=== PATIENT | female | born 1940 | race Caucasian/White ===

== ENCOUNTER → 2017-07-18 14:20 | Outpatient (CLI) | payer MEDICARE, OTHER, SELFPAY ==
--- NOTE | 2017-07-18 14:30 | XR_ITS ---
XR foot RT min 3V HISTORY: ITS.REASON: PAIN IN RT GREAT TOE ORDERING PHYSICIAN: Rahat Murcia MD PATIENT AGE: 76 years COMPARISON: None FINDINGS: There is mild hallux valgus with first metatarsophalangeal angle of 30 degrees. Mild osteoarthritic changes are present at the first metatarsophalangeal joint with hypertrophic changes of the distal first metatarsal. No fracture or dislocation. No lytic or blastic change. There is normal mineralization.. IMPRESSION: Hallux valgus with bunion formation and osteoarthritis of the first MTP joint
--- NOTE | 2017-07-18 14:30 | XR_ITS ---
EXAM: XR cervical spine 5V HISTORY: Neck pain ITS.REASON: CERVICAL ARTHRITIS ORDERING PHYSICIAN: Rahat Murcia MD PATIENT AGE: 76 years COMPARISON: None FINDINGS: Normal alignment. Degenerative disc disease is present at C4-C5 C5-C6 and C6-C7. There are small posterior osteophytes at C5-C6 and C6-C7. Moderate foraminal narrowing is present on the right at C5-C6 and on the left at C6-C7. No fracture or dislocation. The head is slightly tilted toward the right. Incidental note is made of carotid artery calcifications. IMPRESSION: Cervical spondylosis with degenerative disc disease and foraminal narrowing as described above
== END ==
PROVIDERS: PCP Family Medicine; Visit Provider Family Medicine
DX: M79.674 Pain in right toe(s) (principal); M46.92 Unspecified inflammatory spondylopathy, cervical region
CPT/HCPCS: 72050; 73630

== ENCOUNTER → 2017-08-22 06:51 | Outpatient (CLI) | payer MEDICARE, SELFPAY ==
--- NOTE | 2017-08-22 06:59 | NM_ITS ---
History and Indications: Hypertension, family history, chest pain, shortness of breath, palpitations and fatigue Procedure: Patient received a 0.4 mg of Lexiscan, resting heart rate was 64 beats prominent, resting blood pressure 161/79, with Lexiscan maximum heart rate achieved was 98 bpm which is less than 85% of the maximum predicted heart rate and a blood pressure was 145/81. With Lexiscan patient complained of shortness of breath. Electrocardiogram: Resting electrocardiogram showed sinus rhythm, with Lexiscan there is less than 1.[address] segment depression noted from the baseline EKG. The EKG portion of the Lexiscan Myoview is nondiagnostic. Cardiac stress and resting SPECT images: Cardiac stress and rest SPECT images were obtained using technetium 99 Myoview 10.1 mCi at rest and 31.8 mCi at stress, gated SPECT further analysis of segmental wall motion and calculation of the ejection fraction also done. Cardiac stress and rest images show mild decreased tracer activity in the anterior wall with normal contractility in the gated SPECT is likely secondary to soft tissue attenuation from the breast, no reversible ischemia seen, computer derived ejection fraction is over C5 percent with no obvious regional wall motion abnormality, right ventricle is normal size and contractility. Conclusion: 1. The EKG portion of the Lexiscan Myoview is nondiagnostic. 2. No obvious scintigraphic evidence of reversible ischemia seen, computer ejection fraction is over 65% with no obvious regional wall motion abnormality, right ventricle is normal size and contractility.
--- NOTE | 2017-08-22 09:10 | HMH.ITSHM ---
diltiazem warfarin hydrochlorothiazide
== END ==
PROVIDERS: Family Provider Family Medicine; PCP Family Medicine; Visit Provider Family Medicine
DX: I20.8 Other forms of angina pectoris (principal)
CPT/HCPCS: 78452; 93017; A9502; J2785

== ENCOUNTER → 2017-11-25 13:08 | Outpatient (CLI) | payer MEDICARE, SELFPAY ==
--- NOTE | 2017-11-25 13:14 | NVE_ITS ---
Venous Exam Indications: 729.5 Pain in limb. IMPRESSIONS 1. There is no evidence of significant Reflux. 2. No evidence of deep or superficial vein thrombosis involving the left lower extremity Left lower extremity venous duplex evaluation. Doppler flow study including spectral analysis, color and jones scale imaging. Location: Vascular laboratory. Patient status: Outpatient. CRITICAL FINDINGS - Reported to: Mikaela Hong back and verified. - 11/25/17 - 1335 - +bakers cyst Incidental findings: A Moss's cyst is noted incidentally on the left. Tables: Venous flow and imaging: + +-------+ + Location Overall Flow properties + +-------+ + Left common femoral Patent Normal phasicity; spontaneous; normal augmentation; compressible + +-------+ + Left saphenofemoral junction Patent Compressible + +-------+ + Left profunda femoral Patent Compressible + +-------+ + Left femoral Patent Normal phasicity; spontaneous; normal augmentation; compressible + +-------+ + Left greater saphenous Patent Normal phasicity; spontaneous; normal augmentation; compressible + +-------+ + Left popliteal Patent Normal phasicity; spontaneous; normal augmentation; compressible + +-------+ + Left posterior tibial Patent Compressible + +-------+ + Left peroneal Patent Compressible + +-------+ + Left gastrocnemius Patent Compressible + +-------+ + Left soleal Patent Compressible + +-------+ + (Report amended ) Electronically signed by: Hugh Larios [id number]
== END ==
PROVIDERS: Family Provider Family Medicine; PCP Family Medicine; Visit Provider Nurse Practitioner
DX: M79.605 Pain in left leg (principal); M79.89 Other specified soft tissue disorders; Z86.718 Personal history of other venous thrombosis and embolism
CPT/HCPCS: 93971

== ENCOUNTER → 2018-04-14 14:46 | Outpatient (CLI) | payer MEDICARE, SELFPAY ==
--- NOTE | 2018-04-14 14:49 | XR_ITS ---
XR foot wt bearing LT 3V HISTORY: Left foot pain ITS.REASON: bunion pain ORDERING PHYSICIAN: Jennifer Jacobson DPM PATIENT AGE: 77 years COMPARISON: None FINDINGS: Moderate to severe osteoarthritic changes are present at the first metatarsophalangeal joint. No fracture or dislocation. There is a small calcaneal spur at 9 mm. There is minimal hallux valgus. There is mild flexion deformity of the second digit IMPRESSION: Osteoarthritis of the first metatarsophalangeal joint with mild hallux valgus
--- NOTE | 2018-04-14 14:49 | XR_ITS ---
XR foot wt bearing RT 3V HISTORY: Foot pain ITS.REASON: bunion pain ORDERING PHYSICIAN: Jennifer Jacobson DPM PATIENT AGE: 77 years COMPARISON: None FINDINGS: Mild hallux valgus with first metatarsophalangeal angle of 30 degrees with osteoarthritis of the first metatarsophalangeal joint and hypertrophic changes of the distal aspect of the first metatarsal with some cortical irregularity of the mucosal surface of the distal aspect of the first metatarsal and mild soft tissue swelling. No fracture or dislocation. No lytic or blastic change IMPRESSION: Phalanx valgus with osteoarthritis of the first metatarsophalangeal joint and bunion formation
== END ==
PROVIDERS: PCP Family Medicine; Visit Provider Podiatrist
DX: M79.672 Pain in left foot (principal); M79.671 Pain in right foot
CPT/HCPCS: 73630

== ENCOUNTER → 2018-09-26 13:03 | Outpatient (CLI) | payer MEDICARE, SELFPAY ==
--- NOTE | 2018-09-26 13:06 | US_ITS ---
US extremity RT limited CLINICAL INDICATION: 1 body evaluation ITS.REASON: Foreign Body ORDERING PHYSICIAN: Jennifer Jacobson DPM PATIENT AGE: 77 years Comparison: None FINDINGS: Ultrasound obtained of the first toe in the area of concern there is some heterogeneous echogenicity in the subcutaneous region over the first toe with a small linear area of increased echogenicity at this region which could be due to a foreign body IMPRESSION: Possible foreign body of the first toe at area of concern
== END ==
PROVIDERS: PCP Family Medicine; Visit Provider Podiatrist
DX: M79.5 Residual foreign body in soft tissue (principal)
CPT/HCPCS: 76882

== ENCOUNTER → 2018-10-01 14:03 | Outpatient (CLI) | payer MEDICARE, SELFPAY ==
--- NOTE | 2018-10-01 14:23 | XR_ITS ---
XR chest 2V HISTORY: Atrial fibrillation ITS.REASON: SEASONAL ALLERGIES ORDERING PHYSICIAN: Jennifer Jacobson DPM PATIENT AGE: 77 years COMPARISON: None FINDINGS: Unremarkable cardiovascular structures. Patchy density overlies the left ventricle and may be due to fat pad. Parenchymal opacity is noted in the left midlung overlying the posterior aspect of the left eighth rib and may in part be due to a rib lesion versus an overlying lung lesion. Chest CT may be of further value. There are mild degenerative changes in the thoracic spine. IMPRESSION: Nonspecific parenchymal opacity in the left midlung with nodularity medially which could be due to a rib lesion or pulmonary lesion. Chest CT may be of further value. Otherwise negative
[2018-10-01 15:07] LABS: Basophils # 0.1 K/mm3 (0-0.2); Basophils % 0.7 % (0.1-2.0); Eosinophils # 0.1 K/mm3 (0.0-0.4); Eosinophils % 1.3 % (0.1-12.0); Hematocrit 38.1 % (37.0-47.0); Hemoglobin 12.6 g/dL (12.2-16.2); INR 1.85 (0.9-1.1); Lymphocytes # 2.4 K/mm3 (0.7-4.5); Lymphocytes % 30.5 % (10-50); Mean Corpuscular HGB Conc 33.1 g/dL (31.8-35.4); Mean Corpuscular Hemoglobin 30.2 pg (27.0-31.2); Mean Corpuscular Volume 91.2 fl (81-99); Mean Platelet Volume 7.9 fl (7.4-10.4); Monocytes # 0.5 K/mm3 (0.1-1.0); Monocytes % 6.7 % (1.7-9.3); Neutrophils # 4.8 K/mm3 (1.8-7.8); Neutrophils % 60.7 % (37.0-80.0); Platelet Count 217 K/mm3 (142-424); Prothrombin Time 18.7 seconds (9.4-11.8); Red Blood Count 4.17 M/mm3 (4.20-5.40); Red Cell Distribution Width 13.4 % (11.5-17.5)
[2018-10-01 17:43] LABS: Alanine Aminotransferase 20 U/L (12-78); Albumin Level 3.9 gm/dL (3.4-5.0); Albumin/Globulin Ratio 1.2 (1.1-1.8); Alkaline Phosphatase 93 U/L (46-116); Anion Gap 14.7 mEq/L (5-15); Aspartate Amino Transferase 14 U/L (15-37); Bilirubin,Total 0.4 mg/dL (0.2-1.0); Blood Urea Nitrogen 19 mg/dL (7-18); Calcium 8.7 mg/dL (8.5-10.1); Carbon Dioxide 27 mmol/L (21.0-32.0); Chloride 102 mmol/L (98-107); Creatinine,Serum 0.75 mg/dL (0.55-1.02); Estimated Glomerular Filt Rate 75 ml/min (>60); GFR (African American) 90 ML/MIN (>60); Globulin 3.3 gm/dl (1.3-3.2); Glucose 115 mg/dL (74-106); Potassium 3.7 mmoL/L (3.5-5.1); Sodium 140 mmol/L (136-145); Total Protein,Serum 7.2 gm/dL (6.4-8.2)
== END ==
PROVIDERS: PCP Family Medicine; Visit Provider Podiatrist
DX: Z01.818 Encounter for other preprocedural examination (principal); M79.5 Residual foreign body in soft tissue; M79.674 Pain in right toe(s)
CPT/HCPCS: 36415; 71046; 80053; 85025; 85610; 93005

== ENCOUNTER → 2019-04-10 15:56 | Outpatient (CLI) | payer MEDICARE, SELFPAY ==
--- NOTE | 2019-04-10 16:00 | XR_ITS ---
PROCEDURE: XR FOOT WT BEARING RT 3V CLINICAL INDICATION: post-op pain COMPARISON: [id number] XR foot RT min 3V from 07/18/2017 [id number] XR foot wt bearing RT 3V from 04/14/2018 [id number] XR foot wt bearing LT 3V from 04/14/2018 FINDINGS: Osteoarthritic changes are present at the 1st metatarsophalangeal joint with mild hallux valgus and bunion formation. The joint spaces are well-preserved. No significant degenerative/arthritic changes. No erosive changes evident. Other findings:None. IMPRESSION: No change osteoarthritis with hallux valgus and bunion formation at 1st MTP joint Dictated by: Hugh Larios MD 04/10/2019 18:26 Electronically signed by Hugh Larios MD in [place] 04/10/2019 18:26
== END ==
PROVIDERS: PCP Family Medicine; Visit Provider Podiatrist
DX: Z98.890 Other specified postprocedural states (principal); M79.671 Pain in right foot
CPT/HCPCS: 73630

== ENCOUNTER → 2019-04-16 17:01 | Outpatient (CLI) | payer MEDICARE, SELFPAY | PROVIDERS: Visit Provider Podiatrist | DX: L84 Corns and callosities (principal) | CPT/HCPCS: 87102; 87206; 87220 ==

== ENCOUNTER 2021-05-04 17:56 | Emergency (ER) | payer MEDICARE, SELFPAY ==
[2021-05-04 17:58] VITALS: BP 130/64; PULSE 70; RESP 16; TEMP 37.1; O2SAT 98; BMI 27.3
--- NOTE | 2021-05-04 18:07 | XR_ITS ---
PROCEDURE INFORMATION: Exam: XR Right Shoulder Exam date and time: 05/04/2021 6:07 PM Age: 80 years old Clinical indication: Injury or trauma; Fall; Blunt trauma (contusions or hematomas); Shoulder; Right TECHNIQUE: Imaging protocol: XR Right shoulder. Views: 2 or more views. COMPARISON: EXTRL US extremity RT limited 09/26/2018 12:56 PM FINDINGS: Bones/joints: There is a mildly displaced and impacted fracture involving the surgical neck of the right humerus. There is mild comminution and fracture line may extend into the greater tuberosity. Mild subluxation of the glenohumeral joint. Mild degenerative changes in the AC joint. Soft tissues: Normal. IMPRESSION: Proximal right humeral fracture as above
--- NOTE | 2021-05-04 18:07 | XR_ITS ---
PROCEDURE INFORMATION: Exam: XR Right Hand Exam date and time: 05/04/2021 6:07 PM Age: 80 years old Clinical indication: Injury or trauma; Fall; Blunt trauma (contusions or hematomas); Hand; Right TECHNIQUE: Imaging protocol: XR Right hand. Views: 1 or 2 views. COMPARISON: EXTRL US extremity RT limited 09/26/2018 12:56 PM FINDINGS: Bones/joints: No fracture identified. No malalignment. Up to moderate degenerative changes are seen worst in the 2nd DIP. Soft tissues: Normal. IMPRESSION: No evidence of acute osseous injury
--- NOTE | 2021-05-04 18:14 | XR_ITS ---
PROCEDURE INFORMATION: Exam: XR Right Knee Exam date and time: 05/04/2021 6:14 PM Age: 80 years old Clinical indication: Injury or trauma; Fall; Blunt trauma; Knee; Right; Additional info: Pain TECHNIQUE: Imaging protocol: XR Right knee. Views: 3 views. COMPARISON: EXTRL US extremity RT limited 09/26/2018 12:56 PM FINDINGS: Bones/joints: No fracture identified. No malalignment. [id number] degenerative changes are seen worst in the lateral compartment. Soft tissues: Normal. IMPRESSION: No fracture identified
--- NOTE | 2021-05-04 18:56 | HMH.EDFALL ---
ED Disposition Clinical Impression: Humeral surgical neck fracture Qualifiers: Encounter type: initial encounter Fracture type: closed Fracture morphology: 2-part Fracture alignment: nondisplaced Laterality: right Qualified Code(s): S42.224A - 2-part nondisplaced fracture of surgical neck of right humerus, initial encounter for closed fracture Disposition: Home, Self-Care Condition on Discharge: Good Instructions: DI for Humeral Fracture Prescriptions: Hydrocod/Acet 5/325 mg [Winton 5/325mg tablet] 1 tab PO Q6HP PRN #10 tab PRN Reason: Moderate Pain Transmission Status: Sent to [facility] Referrals: Rahat Murcia MD [Primary Care Provider] - Alexander Damian MD [Staff Physician] - - Critical Care Critical Care Time: No Attestation: On 05/04/21, the high probability of a clinically significant, sudden or life threatening deterioration of the following system(s) required my full and direct attention, intervention and personal management. The time I documented below is in addition to time spent performing reported procedures but includes the following listed in this critical care notation. Medical Decision Making - Medical Records Medical records reviewed: Yes: I reviewed the patient's medical records. - Aaron Inquiry Pt receiving controlled substance: Yes Aaron was queried for this patient: Yes Reference #:: [id number] Risks and benefits of using a controlled substance: were discussed with pt by me Vital Signs: 05/04/21 17:58 05/04/21 19:04 Temperature 98.7 F Temperature Source Oral Pulse Rate 72 Pulse Rate [Right] 70 Respiratory Rate 16 16 Blood Pressure 132/72 Blood Pressure [Right Arm] 130/64 Blood Pressure Mean [Right Arm] 86 Blood Pressure Source Automatic Cuff Blood Pressure Source [Right Arm] Automatic Cuff Blood Pressure Position Sitting Blood Pressure Position [Right Arm] Sitting 02 Sat by Pulse Oximetry 98 98 Oxygen Delivery Method Room Air Room Air Orders (Tests/Meds): ED MEDICATIONS Discontinued Medications Generic Name Dose Route Start Last Admin Trade Name Freq PRN Reason Stop Dose Admin Acetaminophen/Codeine Phosphate 1 davy 05/04/21 19:14 Acetaminophen 300mg W/Codeine 30mg Take Home Pack (6) PO 05/04/21 19:15 ONCE ONE Hydrocodone Bitart/Acetaminophen 1 tab 05/04/21 18:14 05/04/21 18:56 Hydrocodone/Apap 5/325 Mg Tablet PO 05/04/21 18:15 1 tab ONCE ONE Administration - Radiology Data #1 Image(s): Shoulder, Wrist, Knee Image Reviewed: Yes I reviewed the patient's radiology results, Yes I reviewed the patient's radiology image, Yes I have reviewed radiologist's interpretation IMPRESSION: No fracture identified FINDINGS: Bones/joints: There is a mildly displaced and impacted fracture involving the surgical neck of the right humerus. There is mild comminution and fracture line may extend into the greater tuberosity. Mild subluxation of the glenohumeral joint. Mild degenerative changes in the AC joint. Soft tissues: Normal. IMPRESSION: Proximal right humeral fracture as above IMPRESSION: No evidence of acute osseous injury - Reevaluation(s) Time: 19:16 Reevaluation #1: On reevaluation, the patient's pain is improved. She does have evidence of impacted right humeral neck fracture. I did speak with orthopedic surgery on-call, Dr. Damian regarding this. He is requested that the patient be placed in a sling and they follow-up with orthopedic surgery in the morning. I did come by this to the patient. She will be discharged with analgesics. Repeat neurovascular and compartment exam are unremarkable. Given strict return precautions. Verbalized understanding. Medical Decision Narrative: 80-year-old female presented to the emergency department after an axonal fall. There is no head trauma. Does not meet imaging criteria for the head or cervical spine. Concern for fracture of the right upper
[2021-05-04 19:04] VITALS: BP 132/72; PULSE 72; RESP 16; O2SAT 98
--- NOTE | 2021-05-04 19:05 | PC.NURSE ---
Dr. Damian paged
--- NOTE | 2021-05-04 19:09 | PC.NURSE ---
speaking with Dr. Damian
[2021-05-04 20:01] VITALS: BP 130/75; PULSE 72; RESP 16; TEMP 37.1; O2SAT 98
== END 2021-05-04 20:03 | disposition home or self-care (01) ==
PROVIDERS: Emergency Provider Emergency Medicine; PCP Family Medicine
DX: S42.224A 2-part nondisplaced fracture of surgical neck of right humerus, initial encounter for closed fracture (principal); W01.0XXA Fall on same level from slipping, tripping and stumbling without subsequent striking against object, initial encounter; Y92.019 Unspecified place in single-family (private) house as the place of occurrence of the external cause
CPT/HCPCS: 29105; 73030; 73120; 73562; 99283

== ENCOUNTER → 2022-09-27 14:17 | Outpatient (CLI) | payer MEDICARE, SELFPAY ==
--- NOTE | 2022-09-27 14:22 | CA_ITS ---
FINAL REPORT TECHNIQUE: Color Doppler, duplex Doppler and compression sonography of the left lower extremity deep venous systems was performed. CLINICAL HISTORY: Varicosities, Lt leg swelling X 2 days, Lt popliteal pain FINDINGS: There is no evidence of deep venous thrombosis from the level of the groin to the calf. The veins are patent and compressible. Note is made of a moderate popliteal cyst. IMPRESSION: No evidence of deep venous thrombosis left lower extremity. Reviewed, Interpreted and Dictated by Moncho Winters III, MD Transcribed by Cassidy Johansen Authenticated and . [facility]
== END ==
PROVIDERS: PCP Nurse Practitioner Family; Visit Provider Nurse Practitioner Family
DX: M79.89 Other specified soft tissue disorders (principal); I83.812 Varicose veins of left lower extremity with pain
CPT/HCPCS: 93971

== ENCOUNTER → 2023-01-14 14:10 | Outpatient (CLI) | payer MEDICARE, SELFPAY ==
--- NOTE | 2023-01-14 | CA_ITS ---
APPROVED REPORT Exam: Pharmacologic Technologist: Asya Au Ht: 5 ft 0 in Wt: 142 lbs BSA: 1.61 m2 HR: 57 bpm BP: 169/69 mmHg Rhythm: NSR Indications: Dyspnea Medical History Medications: DilTiazem,,,,, Erythromycin,,,,, Apixaban,,,,, Hydrocodone-Acetaminophen,,,,, Notrofurantoin monohydrate,,,,, Stress Test Details Test: LEXISCAN HR Resting HR: 63 bpm Max Heart Rate (APMHR): 136 bpm Max HR Achieved: 90 bpm Target HR (85% APMHR): 116 bpm % of APMHR: 66 Recovery HR: 77 bpm BP Resting BP: 169.0/69.0 mmHg Max BP: 172.0/77.0 mmHg Recovery BP: 172.0/70.0 mmHg ECG Resting ECG: Normal sinus rhythm Arrhythmia: PVCs Clinical Exercise duration: 04:00 min Highest Stage Achieved: Stress ECG Conclusion Arrhythmias/Ectopy: PVC's ST-T Changes: No significant ST change. Conclusion: Unremarkable Lexiscan stress test. Myoview images are reported separately. Test Summary REST . . . . . . . Resting REST 02:10 . . 63 . 169/ 69 . . Stage 1 . . . . . . . Myoview Injected Stage 1 01:00 . . 80 . . . . Stage 2 01:00 . . 90 . 172/ 77 . . Stage 3 01:00 . . 89 . 161/ 70 . . Stage 4 01:00 . . 80 . 158/ 73 . Stop exercise at 04:00 RECOVERY 01:00 . . 78 . . . . RECOVERY 02:00 . . 76 . 161/ 75 . . RECOVERY 03:00 . . 77 . 166/ 76 . . RECOVERY 04:00 . . 78 . 172/ 70 . . RECOVERY 04:16 . . 76 . 172/ 70 . . Electronically signed by : Nikia Mathias, 01/15/2023 18:28:12
--- NOTE | 2023-01-14 14:10 | NM_ITS ---
APPROVED REPORT Exam: Nuclear Stress Test Indication: A-FIB, SOB Patient Location: Outpatient Stress Tech: Asya Au [place] Tech:Allyson Joy ANGELA RT (R)(N)(M) Ht: 5 ft 2 in Wt: 139 lbs Bra Size: C HR: 57 bpm BP: 169/69 mmHg BSA: 1.64 m2 Rhythm: NSR TID: 0.97 BMI: 25.4 History: A-FIB, SOB Procedure: Patient received 0.4 mg of intravenous Lexiscan, resting heart rate 57 bpm, resting blood pressure 169/69 mmHg, with Lexiscan maximum heart rate achieved was 90 bpm which is % of the maximum predicted heart rate and blood pressure was 172/77 mmHg. With Lexiscan, patient denied any complaint of chest pain. Cardiac Stress and Resting SPECT Images: Cardiac Stress and Resting SPECT images were obtained using technetium 99m Myoview 29.6 mCi stress and 9.83 mCi at rest. Resting and stress imaging in both supine and prone positions demonstrate a medium-sized, moderate, predominantly fixed perfusion defect in the mid to distal anterior and anteroseptal LV osorio, involving the anteroapical region. There is minimal reversibility in the region. Gated imaging demonstrates normal global LV systolic function. There is mild hypokinesis of the distal anterior and anteroapical LV osorio. LVEF is calculated at 65%. Conclusion: Medium-sized, moderate, predominantly fixed perfusion defect in the mid to distal anterior and anteroseptal LV osorio, involving the anteroapical region. There is minimal reversibility in the region. Gated imaging demonstrates normal global LV systolic function. There is mild hypokinesis of the distal anterior and anteroapical LV osorio. LVEF is calculated at 65%. Electronically signed by : Nikia Mathias, 01/15/2023 18:43:38
== END ==
PROVIDERS: PCP Nurse Practitioner Family; Visit Provider Internal Medicine
DX: I48.0 Paroxysmal atrial fibrillation (principal); R07.9 Chest pain, unspecified; R42 Dizziness and giddiness; R06.09 Other forms of dyspnea
CPT/HCPCS: 78452; 93017; A9502; J2785

== ENCOUNTER → 2023-02-05 16:50 | Outpatient (CLI) | payer MEDICARE, SELFPAY | PROVIDERS: PCP Nurse Practitioner Family; Visit Provider Nurse Practitioner Family | DX: R30.0 Dysuria (principal); B96.1 Klebsiella pneumoniae [K. pneumoniae] as the cause of diseases classified elsewhere | CPT/HCPCS: 87086; 87088; 87186 ==

== ENCOUNTER → 2023-03-05 13:29 | Outpatient (CLI) | payer MEDICARE, SELFPAY ==
--- NOTE | 2023-03-05 13:33 | CA_ITS ---
APPROVED REPORT EXAM: Comprehensive 2D, Doppler, and color-flow Echocardiogram Appliance Repairer: Shu Joyner RT(R) Ht: 5 ft 0 in Wt: 139lbs BSA: 1.60 BP: 147/87 mmHg Indications: CP, SOB, AFIB 2D Dimensions LVOT 2.00 cm (M/F) 1.5-2.5 LVEF (Gotti's) 50.90 % F: 54 - 74 LV Volume 86.70 mL F: 46 - 106 LV Volume Index 54.19 mL/m2 F: 29 - 61 LA Volume 45.20 mL LA Volume Index 28.25 mL/m2 (M/F) 16-34 M-Mode Dimensions RVDd 3.39 cm (0.9-2.6) LA Diam 3.79 cm (1.9-4.0) LVDd 4.18 cm (3.5-5.7) Ao Diam 2.98 cm (2.0-3.7) LVDs 2.78 cm (3.5-5.7) IVSd 1.00 cm (0.6-1.1) PWd 0.89 cm (0.6-1.1) EF (Teich) 62.70% FS 33.50% EDV (Teich) 77.70 mL ESV (Teich) 29.00 mL LV Diastology E Decel Time 150.00 (160-240 msec) E/A Ratio 0.7 MED E' 5.70 (< 7 cm/sec) E'/MED E' Ratio 10.53 (>14) LAT E' 5.10 (<10 cm/sec) E/LAT E' Ratio 11.76 (>14) Mitral Valve MV E Max Matheus. 60.00 (40-130 cm/s) MV A Velocity 90.00 (40-130 cm/s) E/A Ratio 0.67 MV Decel. Time 150.00 (160-240 ms) MV PHT 44.00 ms Tricuspid Valve TR P. Velocity 299.00 cm/s RAP Estimate 15.00 mmHg RVSP 50.70 mmHg Left Ventricle The left ventricle is normal size. The left ventricular systolic function is normal. The left ventricular ejection fraction is within the normal range. There is increased LV wall thickness. Proximal septal thickening is noted. Gated There is normal LV segmental wall motion. Transmitral Doppler flow pattern suggests impaired LV relaxation. LVEF is 60%. Right Ventricle The right ventricle is normal size. The right ventricular systolic function is normal. Atria The left atrium size is normal. The right atrium size is normal. There is no Doppler evidence of interatrial shunt. Aortic Valve The aortic valve is mildly thickened. There is no aortic valvular stenosis. Trace aortic regurgitation. Mitral Valve The mitral valve is mildly thickened. No evidence of mitral valve stenosis. Trace mitral regurgitation. Tricuspid Valve The tricuspid valve leaflets are thin and pliable although Moderate tricuspid regurgitation. RVSP is 35-40 mmHg. Pulmonic Valve The pulmonary valve is normal in structure. Trace pulmonic regurgitation. Great Vessels The aortic root is normal in size. The ascending aorta is normal in size. IVC is normal in size and collapses >50% with inspiration. Pericardium There is no pericardial effusion. Other Information Study Quality: Adequate Conclusion Normal biventricular systolic function. Moderate TR. Elevated RVSP 35-40 mmHg. Electronically signed by : Nikia Mathias MD 03/05/2023 19:07:38
== END ==
PROVIDERS: PCP Nurse Practitioner Family; Visit Provider Internal Medicine
DX: I48.0 Paroxysmal atrial fibrillation (principal); R06.00 Dyspnea, unspecified; R07.9 Chest pain, unspecified; R42 Dizziness and giddiness
CPT/HCPCS: 93306

== ENCOUNTER → 2023-03-29 15:04 | Outpatient (CLI) | payer MEDICARE, SELFPAY ==
--- NOTE | 2023-03-29 15:25 | ECG_ITS ---
APPROVED REPORT Exam: Resting ECG HR:70 bpm ECG Measurements Heart Rate 70 AXES [place] 166 P 81 QRSd 107 QRS -52 QT 389 T 66 QTc 410 Conclusion SINUS RHYTHM LEFT ANTERIOR FASCICULAR BLOCK ABNORMAL ECG UNCONFIRMED REPORT Electronically signed by : Rahat Sloan MD 03/29/2023 17:02:55
[2023-03-29 16:11] LABS: Basophils % 0.4 % (0.1-2.0); Eosinophils # 0.1 K/mm3 (0.0-0.4); Eosinophils % 0.8 % (0.1-12.0); Hematocrit 37.1 % (37.0-47.0); Hemoglobin 12.7 g/dL (12.2-16.2); Lymphocytes # 2.2 K/mm3 (0.7-4.5); Lymphocytes % 34.2 % (10-50); Mean Corpuscular HGB Conc 34.1 g/dL (31.8-35.4); Mean Corpuscular Hemoglobin 32.2 pg (27.0-31.2); Mean Corpuscular Volume 94.3 fl (81-99); Mean Platelet Volume 8.7 fl (7.4-10.4); Monocytes # 0.4 K/mm3 (0.1-1.0); Monocytes % 6.8 % (1.7-9.3); Neutrophils # 3.8 K/mm3 (1.8-7.8); Neutrophils % 57.9 % (37.0-80.0); Platelet Count 208 K/mm3 (142-424); Red Blood Count 3.93 M/mm3 (4.20-5.40); Red Cell Distribution Width 13.6 % (11.5-17.5); White Blood Count 6.5 K/mm3 (4.8-10.8)
[2023-03-29 16:59] LABS: Chloride 105 mmol/L (98-107); Potassium 3.8 mmoL/L (3.5-5.1); Sodium 139 mmol/L (136-145)
[2023-03-29 17:02] LABS: Alanine Aminotransferase 14 U/L (12-78); Albumin Level 4.3 g/dl (3.5-5.0); Albumin/Globulin Ratio 1.7 (1.1-1.8); Alkaline Phosphatase 75 U/L (38-126); Anion Gap 10.8 mEq/L (5-15); Aspartate Amino Transferase 25 U/L (14-36); Bilirubin,Total 0.3 mg/dl (0.2-1.3); Blood Urea Nitrogen 19 mg/dl (7-17); Calcium 8.6 mg/dl (8.4-10.2); Carbon Dioxide 27 mmol/L (22.0-30.0); Estimated Glomerular Filt Rate 47 ml/min (>60); GFR (African American) 57 ML/MIN (>60); Globulin 2.6 g/dL (1.3-3.2); Glucose 122 mg/dl (74-100); Magnesium 1.9 mg/dl (1.6-2.3); Total Protein,Serum 6.9 g/dl (6.3-8.2)
[2023-03-29 17:11] LABS: Troponin I < 0.01 ng/ml (0.00-0.034)
[2023-03-29 17:23] LABS: Thyroid Stimulating Hormone 0.84 uIU/mL (0.465-4.68)
== END ==
PROVIDERS: PCP Nurse Practitioner Family; Visit Provider Nurse Practitioner Family
DX: R00.2 Palpitations (principal); R94.30 Abnormal result of cardiovascular function study, unspecified; I48.0 Paroxysmal atrial fibrillation
CPT/HCPCS: 36415; 80053; 83735; 84443; 84484; 85025; 93005

== ENCOUNTER → 2023-04-08 06:54 | Outpatient (CLI) | payer MEDICARE, SELFPAY | PROVIDERS: PCP Nurse Practitioner Family; Visit Provider Nurse Practitioner Family | DX: R39.9 Unspecified symptoms and signs involving the genitourinary system (principal); B96.1 Klebsiella pneumoniae [K. pneumoniae] as the cause of diseases classified elsewhere | CPT/HCPCS: 87086 ==

== ENCOUNTER → 2023-05-08 23:18 | Outpatient (CLI) | payer MEDICARE, SELFPAY | PROVIDERS: PCP Nurse Practitioner Family; Visit Provider Nurse Practitioner Family | DX: N39.0 Urinary tract infection, site not specified (principal); B96.1 Klebsiella pneumoniae [K. pneumoniae] as the cause of diseases classified elsewhere | CPT/HCPCS: 87086 ==

== ENCOUNTER 2023-06-19 12:53 | Outpatient (CLI) | payer MEDICARE, SELFPAY | END 2023-06-19 23:59 | LOC: LAB.DROPOF 12:53 | PROVIDERS: PCP Nurse Practitioner Family; Visit Provider Nurse Practitioner Family | DX: R30.0 Dysuria (principal) | CPT/HCPCS: 87086 ==

== ENCOUNTER 2024-01-16 20:29 | Inpatient (IN) | payer MEDICARE, SELFPAY ==
[2024-01-16 20:31] VITALS: BP 172/84; PULSE 70; RESP 18; TEMP 36.6; O2SAT 95; BMI 24.4
--- NOTE | 2024-01-16 20:38 | XR_ITS ---
PROCEDURE INFORMATION: Exam: XR Left Femur Exam date and time: 01/16/2024 9:01 PM Age: 83 years old Clinical indication: Injury or trauma; Other: Pain from fall; Additional info: Fall, L hip pain TECHNIQUE: Imaging protocol: Radiologic exam of the left femur. Views: 2 views. COMPARISON: CR XR HIP LT 2-3V W/PELVIS 01/16/2024 9:01 PM FINDINGS: Bones/joints: There is a fracture through the subcapital femoral neck with superior subluxation of the distal fragment measuring approximately 1.7 cm. Femoral head is properly situated in the acetabulum. Remainder of the femur is intact. There is moderate osteoarthritis of the knee. Soft tissues: Unremarkable. IMPRESSION: Subcapital femoral neck fracture with proximal migration of the distal fragment. Remainder of the femur is intact.
--- NOTE | 2024-01-16 20:38 | CT_ITS ---
PROCEDURE INFORMATION: Exam: CT Head Without Contrast Exam date and time: 01/16/2024 9:02 PM Age: 83 years old Clinical indication: Injury or trauma; Fall; Additional info: Fall >65 TECHNIQUE: Imaging protocol: Computed tomography of the head without contrast. Total images: 416 Radiation optimization: All CT scans at this facility use at least one of these dose optimization techniques: automated exposure control; mA and/or kV adjustment per patient size (includes targeted exams where dose is matched to clinical indication); or iterative reconstruction. COMPARISON: HEADWO CT head/brain wo con 12/03/2017 7:34 PM FINDINGS: Brain: No acute intracranial hemorrhage, midline shift, or mass. Mild cortical and cerebellar atrophy. Sharp-white interface and basilar cisterns are preserved. Moderate confluent periventricular and subcortical white matter hypodensity compatible with remote small vessel ischemic change. Remote lacunar infarct right caudate head. Remote lacunar infarct versus prominent CSF fluid space inferior right lentiform nucleus. Cerebral ventricles: Mild ventriculomegaly compatible degree of central atrophy. Paranasal sinuses: Visualized sinuses are unremarkable. No fluid levels. Mastoid air cells: Visualized mastoid air cells are well aerated. Bones: Osteopenia. No skull fracture. Soft tissues: Probable minor soft tissue swelling right frontal scalp. Vasculature: Moderate calcifications bilateral intracranial internal carotid arteries. IMPRESSION: 1. No acute intracranial process. 2. Chronic findings as described.
--- NOTE | 2024-01-16 20:38 | CT_ITS ---
PROCEDURE INFORMATION: Exam: CT Cervical Spine Without Contrast Exam date and time: 01/16/2024 9:05 PM Age: 83 years old Clinical indication: Injury or trauma; Fall; Sprain or strain, cervical ligaments; Additional info: Fall >65 TECHNIQUE: Imaging protocol: Computed tomography of the cervical spine without contrast. Total images: 242 Radiation optimization: All CT scans at this facility use at least one of these dose optimization techniques: automated exposure control; mA and/or kV adjustment per patient size (includes targeted exams where dose is matched to clinical indication); or iterative reconstruction. COMPARISON: [facility] CT cervical spine wo con 12/03/2017 7:37 PM FINDINGS: Bones: Osteopenia. Straightened cervical lordosis with mild dextrocurvature. Vertebral body height and alignment is maintained. The base of the dens and the C1 and C2 articulations are preserved with moderate degenerative arthropathy. The cervicooccipital junction is intact. The facet joints are appropriately aligned with mild degenerative spondylosis. Posterior elements are intact. Mild degenerative disc disease C4-C5, C5-C6, and C6-C7 with small posterior projecting disc osteophyte complex. No critical spinal canal stenosis. Mild multilevel neural foraminal encroachments. No concerning bone lesions. Prevertebral and retropharyngeal spaces: No prevertebral soft tissue swelling. Lungs: Mild biapical scarring. Thyroid: Multinodular thyroid gland. Recommend follow-up nonemergent ultrasound. Vasculature: Moderate calcifications bilateral carotid artery bifurcations. Soft tissues: Unremarkable. IMPRESSION: 1. No acute cervical fracture or traumatic subluxation. 2. Straightened lordosis with broad-based dextrocurvature from position or muscle spasm. 3. Moderate multilevel degenerative disc disease. 4. Enlarged multinodular thyroid gland. Recommend follow-up nonemergent ultrasound. 5. Additional chronic findings.
--- NOTE | 2024-01-16 20:38 | XR_ITS ---
PROCEDURE INFORMATION: Exam: XR Left Knee Exam date and time: 01/16/2024 9:01 PM Age: 83 years old Clinical indication: Injury or trauma; Other: Pain after fall; Additional info: Fall, L hip pain TECHNIQUE: Imaging protocol: Radiologic exam of the left knee. Views: 3 views. COMPARISON: CR XR FEMUR LT 2V 01/16/2024 9:01 PM FINDINGS: Bones/joints: Tricompartmental osteoarthritis of the knee, lateral compartment predominant. No evidence of acute fracture. No joint effusion. Soft tissues: Normal. IMPRESSION: No acute bony abnormality. Moderate tricompartmental osteoarthritis, lateral compartment predominant.
--- NOTE | 2024-01-16 20:38 | XR_ITS ---
PROCEDURE INFORMATION: Exam: XR Left Hip Exam date and time: 01/16/2024 9:01 PM Age: 83 years old Clinical indication: Injury or trauma; Other: Pain after fall; Additional info: Fall, L hip pain TECHNIQUE: Imaging protocol: Radiologic exam of the left hip. Views: 2 or 3 views hip with pelvis when performed. COMPARISON: CR XR FEMUR LT 2V 01/16/2024 9:01 PM FINDINGS: Bones/joints: There is a subcapital fracture of the left femoral neck. Distal fragment has migrated proximally by approximately 2 cm. Pelvis and right proximal femur appear intact. There is lower lumbar degenerative disc disease. Soft tissues: Unremarkable. IMPRESSION: Oblique subcapital fracture of the left femoral neck with proximal migration of the distal fragment. No additional acute bony injury.
[2024-01-16 20:51] LABS: Basophils % 0.3 % (0.1-2.0); Eosinophils % 0.2 % (0.1-12.0); Hematocrit 40.1 % (37.0-47.0); Hemoglobin 12.3 g/dL (12.2-16.2); Lymphocytes # 1.1 K/mm3 (0.7-4.5); Lymphocytes % 9.1 % (10-50); Mean Corpuscular HGB Conc 30.6 g/dL (31.8-35.4); Mean Corpuscular Hemoglobin 30.5 pg (27.0-31.2); Mean Corpuscular Volume 99.7 fl (81-99); Mean Platelet Volume 8.8 fl (7.4-10.4); Monocytes # 0.4 K/mm3 (0.1-1.0); Monocytes % 2.8 % (1.7-9.3); Neutrophils # 10.8 K/mm3 (1.8-7.8); Neutrophils % 87.6 % (37.0-80.0); Platelet Count 209 K/mm3 (142-424); Red Blood Count 4.02 M/mm3 (4.20-5.40); Red Cell Distribution Width 13.7 % (11.5-17.5); White Blood Count 12.3 K/mm3 (4.8-10.8)
[2024-01-16] MEDS: ACETAMINOPHEN 1,000MG/100ML VIAL 1000 MG IV (20:51)
[2024-01-16] MEDS: ONDANSETRON 4MG/2ML VIAL 4 MG IV (20:51)
[2024-01-16] MEDS: MORPHINE 4MG/ML SYRINGE 4 MG IV ×2 (20:51→21:55)
[2024-01-16 21:00] LABS: MANUAL DIFFERENTIAL MANUAL DIFFERENTIAL (MANUAL DIFF)
[2024-01-16 21:01] LABS: Albumin Level 4.1 g/dl (3.5-5.0); Chloride 103 mmol/L (98-107)
[2024-01-16 21:02] LABS: Potassium 3.4 mmoL/L (3.5-5.1); Sodium 135 mmol/L (136-145)
[2024-01-16 21:04] LABS: Alanine Aminotransferase 19 U/L (12-78); Anion Gap 8.4 mEq/L (5-15); Aspartate Amino Transferase 28 U/L (14-36); Blood Urea Nitrogen 18 mg/dl (7-17); Carbon Dioxide 27 mmol/L (22.0-30.0); Creatinine Clearance Estimated 37 mL/min (50-200); Estimated Glomerular Filt Rate 95 ml/min (>60); GFR (African American) 115 ML/MIN (>60)
[2024-01-16 21:05] LABS: Albumin/Globulin Ratio 1.4 (1.1-1.8); Alkaline Phosphatase 104 U/L (38-126); Bilirubin,Total 0.6 mg/dl (0.2-1.3); Calcium 8.4 mg/dl (8.4-10.2); Glucose 134 mg/dl (74-100); Total Protein,Serum 7.1 g/dl (6.3-8.2)
--- NOTE | 2024-01-16 21:11 | ED_ITS ---
Discharge Plan Disposition Patient Disposition: Admitted Condition: Fair Clinical Impressions Clinical Impression: Closed subcapital fracture of left femur, Fall Discharge ED Provider: Pretty Dailey General Adult HPI General Chief complaint: Fall Stated complaint: AO 01/16/24 1620 Injury left hip Time Seen by Provider: 01/16/24 20:35 Mode of Arrival: Wheelchair Source of Information: Patient Limitations: Physical Limitations Description of Symptoms (Recalled from ER Triage Doc. by RN): Pt presents to ED for L hip/knee pain after a fall. Pt states she tried to turn one way and her feet went the other. Pt landed on her L hip and knee on a tile floor. Pt is unable to bear weight on L leg and is showing signs of considerable pain. Pt is on blood thinner. Pt is A&O*4 at this time. History of Present Illness HPI narrative: This patient is an 83-year-old female with a history of paroxysmal atrial fibrillation on Eliquis presented to the emergency department for evaluation with concern for left hip pain after a fall. Patient reports that she was cooking dinner when she turned to take the pork chops out. She states that her body turned but her hips did not, causing her to fall and go to the ground. She felt immediate pain in her left hip and was unable to bear weight on her left hip afterward. She arrives personal vehicle as family helped carry her to the car. She did not hit her head or lose consciousness. No other concerns noted at this time. She was well prior to the fall Related Data Home Medications ?Medication ?Instructions ?Recorded ?Confirmed flaxseed oil 1,000 mg capsule 1,000 mg PO DAILY 03/29/23 01/16/24 estradiol 0.01% (0.1 mg/gram) 1 appful vaginal .COMPLEX 06/19/23 01/16/24 vaginal cream diltiazem HCl 60 mg 60 mg PO DAILY 01/16/24 01/16/24 capsule,extended release 12 hr Previous Rx's ?Medication ?Instructions ?Recorded cranberry fruit concentrate 250 mg 250 mg PO TID #90 tabs 02/05/23 chewable tablet (Azo Cranberry) fluticasone propionate 50 2 spray intranasal DAILY #16 grams 08/14/23 mcg/actuation nasal spray,suspension (Flonase Allergy Relief) apixaban 2.5 mg tablet 2.5 mg PO BID 90 days #180 tabs 09/11/23 Allergies Allergy/AdvReac Type Severity Reaction Status Date / Time diazepam [From Valium] Allergy Verified 01/03/24 13:28 [facility] Disclaimer: The information contained in this section may have been updated after the patient was seen, as this information can be updated by other users. Medical History Abnormal result of cardiovascular function study Thyroid goiter Paroxysmal A-fib Surgical History S/P conization of cervix H/O total hysterectomy S/P ORIF (open reduction internal fixation) fracture Social History Smoking Status: Never smoker second hand exposure: No alcohol intake: never current occupational status: retired Travel in the last 8 weeks: None household members: spouse housing: house current occupational exposures/hazards: No caffeine: No ROS Obtained: Yes All systems reviewed & no additional complaints except as documented Physical Exam General General appearance: alert and in no apparent distress Comment: Uncomfortable appearing Head Head exam: atraumatic and normocephalic Eye Eye exam: Present normal appearance, PERRL and EOMI ENT ENT exam: Present normal exam, normal oropharynx, mucous membranes moist and normal external ear exam Neck Neck exam: Present normal inspection, full ROM and trachea midline; Absent tenderness Chest Chest inspection: Present normal inspection and symmetric chest wall rise; Absent tenderness Respiratory Respiratory exam: Present normal lung sounds bilaterally; Absent respiratory distress, wheezes, stridor or accessory muscle use Cardiovascular Cardiovascular exam: Present regular rate and normal rhythm Abdominal Exam Abdominal exam: Present soft; Absent distention, tenderness or guarding Extremities Exam Extremities exam: Present tenderness (Tenderness to palpation of the left hip/femur. All compartments soft. Neurovascularly intact distally) and normal capillary refill; Absent full ROM or edema Back Exam Back exam: Present normal inspection and full ROM; Absent tenderness Neurological Exam Neurological exam: Present alert, oriented X3, CN II-XII intact and normal gait; Absent motor sensory deficit Psychiatric Psychiatric exam: Present normal affect and normal mood Skin Skin exam: Present warm and dry Medical Decision Making Medical Records Medical records reviewed: Yes I reviewed the patient's medical records. Aaron Inquiry Pt receiving controlled substance: No Vital Signs: 01/16/24 20:31 01/16/24 22:52 Temperature 97.9 F 97.9 F Temperature Source Oral Oral Pulse Rate 75 Pulse Rate [Right] 70 Respiratory Rate 18 16 Blood Pressure 151/85 H Blood Pressure [Right Arm] 172/84 H Blood Pressure Mean [Right Arm] 113 Blood Pressure Source Automatic Cuff Blood Pressure Position Supine 02 Sat by Pulse Oximetry 95 Oxygen Delivery Method Room Air Nasal Cannula Oxygen Flow Rate (LPM) 2 Lab Data Lab results reviewed: Yes I reviewed the patient's lab results. Lab Results 01/16/24 20:40: WBC 12.3 H, RBC 4.02 L, Hgb 12.3, Hct 40.1, MCV 99.7 H, MCH 30.5, MCHC 30.6 L, RDW 13.7, Plt Count 209, MPV 8.8, Neut % (Auto) 87.6 H, Lymph % (Auto) 9.1 L, [place] % (Auto) 2.8, Eos % (Auto) 0.2, Baso % (Auto) 0.3, Neut # (Auto) 10.8 H, Lymph # (Auto) 1.1, [place] # (Auto) 0.4, Eos # (Auto) 0.0, Baso # (Auto) 0.0, Total Counted 100, Neutrophils % (Manual) 80 H, Lymphocytes % (Manual) 17, Atypical Lymphs % 1.0, Monocytes % (Manual) 2, RBC Morphology Normal, PT 11.3, INR 1.01, APTT 28.3, Sodium 135 L, Potassium 3.4 L, Chloride 103, Carbon Dioxide 27, Anion Gap 8.4, BUN 18 H, Creatinine 0.60, Estimated Creat Clear 37, Estimated GFR 95, Est GFR ( Amer) 115, Glucose 134 H, Calcium 8.4, Total Bilirubin 0.6, AST 28, ALT 19, Alkaline Phosphatase 104, Total Protein 7.1, Albumin 4.1, Globulin 3.0, Albumin/Globulin Ratio 1.4 01/16/24 20:40 01/16/24 20:40 Orders (Tests/Meds): ED MEDICATIONS Generic Name Dose Route Start Last Admin Trade Name Freq PRN Reason Stop Dose Admin Acetaminophen 650 mg 01/16/24 22:13 Acetaminophen 325mg Tab PO 02/15/24 22:12 Q4HP PRN Fever or Mild Pain (1-3) Docusate Sodium 100 mg 01/17/24 09:00 Docusate Sodium 100 Mg Capsule PO 02/16/24 08:59 DAILY RADHA Sodium Chloride 1,000 mls @ 50 mls/hr 01/16/24 22:15 01/16/24 23:18 Sod Chlor 0.9% 1000ml Bag IV 01/17/24 18:14 50 mls/hr .Q20H ONE Administration Morphine Sulfate 4 mg 01/16/24 22:13 Morphine 4mg/Ml Syringe IV 02/15/24 22:12 Q4HP PRN Severe Pain (7-10) Nicotine 21 mg 01/16/24 22:13 Nicotine 21mg/24hr Patch TD 02/15/24 22:12 DAILYP PRN Nicotine Cravings Ondansetron HCl 4 mg 01/16/24 22:13 Ondansetron 4mg/2ml Vial IV 02/15/24 22:12 Q8HP PRN Nausea Pantoprazole Sodium 40 mg 01/17/24 09:00 Pantoprazole 40mg Tablet PO 02/16/24 08:59 DAILY RADHA Discontinued Medications Generic Name Dose Route Start Last Admin Trade Name Freq PRN Reason Stop Dose Admin Acetaminophen 1,000 mg 01/16/24 20:38 01/16/24 20:51 Acetaminophen 1,000mg/100ml Vial IV 01/16/24 20:39 1,000 mg ONCE ONE Administration Morphine Sulfate 4 mg 01/16/24 20:38 01/16/24 20:51 Morphine 4mg/Ml Syringe IV 01/16/24 20:39 4 mg ONCE ONE Administration Morphine Sulfate 4 mg 01/16/24 21:49 01/16/24 21:55 Morphine 4mg/Ml Syringe IV 01/16/24 21:50 4 mg ONCE ONE Administration Ondansetron HCl 4 mg 01/16/24 20:38 01/16/24 20:51 Ondansetron 4mg/2ml Vial IV 01/16/24 20:39 4 mg ONCE ONE Administration ORDERS Category Date Time Status CT bony pelvis Stat Cat Scan 01/16/24 21:[address] cervical spine wo con Stat Cat Scan 01/16/24 20:[address] head/brain wo con Stat Cat Scan 01/16/24 20:38 Completed Ortho Consult (on-call) [Consult to On-Call Orthopedic Cons 01/16/24 21:47 Ordered Surgeon] [CONS] Routine Femur XR left 2 views [XR femur LT 2V] Stat Exams 01/16/24 20:38 Completed Hip XR left minimum 2 views [XR hip LT 2-3V w/pelvis] Exams 01/16/24 20:38 Completed Stat Knee XR left 3 views [XR knee LT 3V] Stat Exams 01/16/24 20:38 Completed CBC w/Auto Diff [Complete Blood Count Auto Diff] Stat Lab 01/16/24 20:40 Completed CMP [Comprehensive Metabolic Panel] AMLAB Lab 01/17/24 06:00 Ordered CMP [Comprehensive Metabolic Panel] Stat Lab 01/16/24 20:40 Completed Complete Blood Count Auto Diff AMLAB Lab 01/17/24 06:00 Ordered Magnesium AMLAB Lab 01/17/24 06:00 Ordered PT INR [Prothrombin Time INR] Stat Lab 01/16/24 20:40 Completed PTT [Activated Partial Thrombo Time] Stat Lab 01/16/24 20:40 Completed Medical Decision Narrative: In summary, this patient is a 83-year-old female presenting to the Emergency Department for evaluation of left hip pain. Differential diagnoses considered include but are not limited to fracture, contusion, strain/sprain, neurovascular injury, polytrauma. Ruling out the most morbid conditions drove assessment. It should be noted patient's history includes paroxysmal atrial fibrillation on Eliquis which may or may not be at goal therapy. This complicates all aspects of care by increasing patient's risk for morbidity. On exam, patient is uncomfortable appearing with tenderness to palpation over left hip. All compartments soft. Neurovascularly intact distally. Workup included CT head, CT C-spine, CT bony pelvis, x-rays of the left lower extremity that is injured. She was given IV morphine, Zofran, and acetaminophen for symptomatic improvement. Given she is on anticoagulation, basic labs and coags were obtained. I independently interpreted CT scans and x-rays prior to the radiologist read and noted left subcapital hip fracture. Please see their read for final interpretation. Labs were obtained that demonstrated mild leukocytosis in the setting of trauma. She also has very mild hypokalemia and hyponatremia. On reassessment, patient has continued pain, so I gave another dose of IV morphine. She remains neurovascularly intact in her lower extremity. I had an interactive discussion with Dr. Lobo with orthopedics who advised that since she is on , he would recommend admission with likely surgical intervention on Saturday. Patient and family agreeable to this. I had an interactive discussion with the hospitalist who admitted the patient. Critical Care Critical Care Time Critical Care Time: No
--- NOTE | 2024-01-16 21:13 | CT_ITS ---
PROCEDURE INFORMATION: Exam: CT Pelvis Without Contrast, Skeleton Exam date and time: 01/16/2024 9:17 PM Age: 83 years old Clinical indication: Injury or trauma; Patient HX: Pain left hip; Additional info: Fall, pain TECHNIQUE: Imaging protocol: Computed tomography of the pelvis without contrast. Exam focused on the skeleton. Radiation optimization: All CT scans at this facility use at least one of these dose optimization techniques: automated exposure control; mA and/or kV adjustment per patient size (includes targeted exams where dose is matched to clinical indication); or iterative reconstruction. COMPARISON: CR XR HIP LT 2-3V W/PELVIS 01/16/2024 9:01 PM FINDINGS: Intestine: There is diverticulosis without evidence of acute diverticulitis. Appendix: Normal appendix is confirmed. Vasculature: Mild aortoiliac calcific atherosclerosis without aneurysm. Reproductive: Prior hysterectomy. No evidence of vaginal cuff or adnexal mass. Bones/joints: Severe subjective bony demineralization. An oblique subcapital fracture of the left femoral neck is demonstrated. There is proximal migration of the distal fragment as expected. Intact sacrum, pelvis, image lumbar spine, and right proximal femur. There is mild degenerative disc disease in the lower lumbar spine with adequate spinal canal and neural foramina. Soft tissues: Contusion noted in the subcutaneous fat lateral to the left hip. IMPRESSION: 1. Oblique subcapital fracture of the left femoral neck with proximal migration of the distal fragment. No additional acute bony injury. 2. Subjective bony demineralization could be quantified with DEXA. 3. Diverticulosis without evidence of acute diverticulitis.
[2024-01-16 21:22] LABS: Activated Partial Thrombo Time 28.3 seconds (22.8-30.6); INR 1.01 (0.9-1.1); Prothrombin Time 11.3 seconds (10.1-12.5)
[2024-01-16 22:00] LABS: Lymphocytes % 17 % (10-50); Monocytes % 2 % (2-9); Neutrophils % 80 % (42-76); Total Cells Counted 100
[2024-01-16 22:02] LABS: RBC Morphology Normal
--- NOTE | 2024-01-16 22:18 | P.HP_ITS ---
History of Present Illness *Admission Date: 01/16/24 *Reason for visit:: LT hip fracture *History of present illness: This is a 83-year-old female with a PMHx of paroxysmal atrial fibrillation on Eliquis, factor V deficiency, osteoporosis presented to the emergency department for evaluation with concern for left hip pain after a fall. Patient reports that she was cooking dinner when she suddenly turned for something and her body turned but her hips did not, causing her to fall and go to the ground. She felt immediate pain in her left hip and was unable to bear weight on her left hip afterward. She arrives personal vehicle as family helped carry her to the car. She did not hit her head or lose consciousness. No other concerns noted at this time. patient was independent with ADLs prior to the fall. admitted for treatment. [facility] Disclaimer: The information contained in this section may have been updated after the patient was seen, as this information can be updated by other users. Medical History Abnormal result of cardiovascular function study Thyroid goiter Paroxysmal A-fib Surgical History S/P conization of cervix H/O total hysterectomy S/P ORIF (open reduction internal fixation) fracture Social History Smoking Status: Never smoker second hand exposure: No alcohol intake: never current occupational status: retired Travel in the last 8 weeks: None household members: spouse housing: house current occupational exposures/hazards: No caffeine: No Review of Systems Review of Systems Review of systems:: pertinent systems reviewed and negative unless documented below Meds Home Medications and Allergies Home Medications ?Medication ?Instructions ?Recorded ?Confirmed ?Type cranberry fruit concentrate 250 mg 250 mg PO TID #90 tabs 02/05/23 01/16/24 Rx chewable tablet (Azo Cranberry) flaxseed oil 1,000 mg capsule 1,000 mg PO DAILY 03/29/23 01/16/24 History estradiol 0.01% (0.1 mg/gram) 1 appful vaginal MOWEFR 06/19/23 01/17/24 History vaginal cream fluticasone propionate 50 2 spray intranasal DAILY #16 grams 08/14/23 01/16/24 Rx mcg/actuation nasal spray,suspension (Flonase Allergy Relief) apixaban 2.5 mg tablet 2.5 mg PO BID 90 days #180 tabs 09/11/23 01/16/24 Rx diltiazem HCl 60 mg 60 mg PO BID 01/16/24 01/17/24 History capsule,extended release 12 hr New Prescriptions to Start Prescriptions: Allergies Allergy/AdvReac Type Severity Reaction Status Date / Time diazepam [From Valium] Allergy Verified 01/03/24 13:28 Exam Data for Last 24 hours Vital signs and Labs for Last 24 Hours: Temp Pulse Resp BP Pulse Ox O2 Del Method 97.9 F 70 18 172/84 H 95 Room Air 01/16/24 20:31 01/16/24 20:31 01/16/24 20:31 01/16/24 20:31 01/16/24 20:31 01/16/24 20:31 Laboratory Results - last 24 hr 01/16/24 20:40: WBC 12.3 H, RBC 4.02 L, Hgb 12.3, Hct 40.1, MCV 99.7 H, MCH 30.5, MCHC 30.6 L, RDW 13.7, Plt Count 209, MPV 8.8, Neut % (Auto) 87.6 H, Lymph % (Auto) 9.1 L, [place] % (Auto) 2.8, Eos % (Auto) 0.2, Baso % (Auto) 0.3, Neut # (Auto) 10.8 H, Lymph # (Auto) 1.1, [place] # (Auto) 0.4, Eos # (Auto) 0.0, Baso # (Auto) 0.0, Total Counted 100, Neutrophils % (Manual) 80 H, Lymphocytes % (Manual) 17, Atypical Lymphs % 1.0, Monocytes % (Manual) 2, RBC Morphology Normal, PT 11.3, INR 1.01, APTT 28.3, Sodium 135 L, Potassium 3.4 L, Chloride 103, Carbon Dioxide 27, Anion Gap 8.4, BUN 18 H, Creatinine 0.60, Estimated Creat Clear 37, Estimated GFR 95, Est GFR ( Amer) 115, Glucose 134 H, Calcium 8.4, Total Bilirubin 0.6, AST 28, ALT 19, Alkaline Phosphatase 104, Total Protein 7.1, Albumin 4.1, Globulin 3.0, Albumin/Globulin Ratio 1.4 I & O for Last 24 hours: Intake & Output 01/13/24 01/14/24 01/15/24 01/16/24 23:59 23:59 23:59 23:59 Weight 56.699 kg Constitutional Constitutional: mild distress and cooperative *Routine HEENT Exam Head: Present normocephalic Eye: Present EOMI and PERRL ENT: Present mucous membranes moist *Routine Neck Exam Neck: Present supple; Absent lymphadenopathy *Routine Respiratory Exam Respiratory: Present CTA bilaterally *Routine Cardiovascular Exam Cardiovascular: Present RRR, Normal S1, Normal S2 and tachycardia *Routine Abdominal Exam Abdominal: Present soft and normoactive bowel sounds; Absent tenderness *Routine Rectal Exam Rectal:: deferred *Routine Genitalia Exam Genitalia:: deferred *Routine Extremities Exam Extremities: Absent cyanosis, clubbing, edema or full ROM Routine Back/Spine/Pelvis Exam Pelvis: Present pain with lateral compression of the pelvis *Routine Skin Exam Skin: Present warm; Absent rash *Routine Neurological Exam Neurological: Present alert and oriented X3; Absent sensory deficit or motor deficit H&P: Result Imaging and Cardiology EKG: Status: image reviewed by me, Preliminary report and final report Trauma scan : Status: image reviewed by me, Preliminary report and final report CT scan - pelvis: Status: image reviewed by me, Preliminary report and final report Assessment and Plan *Assessment and plan (1) Closed subcapital fracture of left femur: Status: Acute Qualifiers: Encounter type: initial encounter Qualified Code(s): S72.012A - Unspecified intracapsular fracture of left femur, initial encounter for closed fracture Category: Medical Code(s): S72.012A - Unspecified intracapsular fracture of left femur, initial encounter for closed fracture (2) Fall: Status: Acute Qualifiers: Encounter type: initial encounter Qualified Code(s): W19.XXXA - Unspecified fall, initial encounter Category: Medical Code(s): W19.XXXA - Unspecified fall, initial encounter (3) Hypokalemia: Status: Acute Category: Medical Code(s): E87.6 - Hypokalemia (4) Paroxysmal A-fib: Status: Acute Category: Medical Code(s): I48.0 - Paroxysmal atrial fibrillation (5) Elevated BP without diagnosis of hypertension: Status: Acute Category: Medical Code(s): R03.0 - Elevated blood-pressure reading, without diagnosis of hypertension Plan 83-year-old female with a PMHx of paroxysmal atrial fibrillation on Eliquis, factor V deficiency, osteoporosis presented to the emergency department for evaluation with concern for left hip pain after a fall. Patient arrived on visible discomfort, with tenderness to palpation over left hip. All compartments soft. Neurovascularly intact distally. CT showed left subcapital neck femur fracture. case was also discussed with ORTHo. admission requested. we agreed for it. Plan as follow: -Closed subcapital fracture of left femoral: Likely secondary to indirect trauma or stress fracture: mechanical fall with injury hypokalemia Hx of afib on chronic eliquis Elevated blood pressure without diagnosis of hypertension Admit patient for inpatient medical service. Start continuous cardiac monitoring Orthopedic consult CT and x-ray trauma/scanning reviewed Replace potassium per protocol. Monitor for other electrolytes imbalance PT/INR normal. Hold Eliquis for surgical intervention EKG on normal sinus on admission Pain management. Tylenol and morphine as needed Cardiology consult for cardiac clearance. Echo ordered. Monitor BP obtain baseline Daily CBC CMP SCD for DVT prophylaxis. Protonix for GI bleed protection Full code Cardiac diet Rounded on patient after nurse practitioner. Personally examined and interviewed patient. Agree with exam findings and care plan as documented.
--- NOTE | 2024-01-16 22:30 | PC.NURSE ---
Pts O2 sat decreased to the 80's after pain medication was administered. MD Dailey aware. pt placed on 2L NC .
--- NOTE | 2024-01-16 22:38 | PC.NURSE ---
report called to david RODRIGUEZ
[2024-01-16 22:52] VITALS: BP 151/85; PULSE 75; RESP 16; TEMP 36.6; O2SAT 98
--- NOTE | 2024-01-16 23:05 | PC.NURSE ---
2220 RECEIVED PHONE REPORT FROM HALI RN/ED NURSE. PATIENT IS AN 83 YO FEMALE. S/P FALL AT HOME RESULTING IN LEFT FEMORAL HEAD FRACTURE. WILL TRANSFER BY STRETCHER.
--- NOTE | 2024-01-16 23:08 | PC.NURSE ---
Patient arrived to floor via stretcher from ED at 23:07.
[2024-01-16] MEDS: 0.9 % SODIUM CHLORIDE 1000ML 1,000 ML 50 ML IV (23:18)
--- NOTE | 2024-01-16 23:39 | PC.NURSE ---
2307 patient arrived to the floor via stretcher. a/o x 4. pleasant and cooperative. E Rufino EMMANUEL here to see patient.
[2024-01-16 23:54] VITALS: O2SAT 95
[2024-01-17] VITALS (7 sets, daily range): BP systolic 124–158; BP diastolic 64–83; PULSE 58–86; RESP 18–20; TEMP 36.5–37.2; O2SAT 88–100; BMI 27.1
--- NOTE | 2024-01-17 00:23 | CA_ITS ---
APPROVED REPORT EXAM: Comprehensive 2D, Doppler, and color-flow Echocardiogram Canary Raiser: Mirian Melendez CRT Ht: 5 ft 0 in Wt: 125lbs BSA: 1.53 BP: 172/84 mmHg Indications: Atrial Fibrillation, Hypertension/HDD, pre-op L hip fx, factor 5 2D Dimensions LA Volume 30.50 mL LA Volume Index 19.40 mL/m2 (M/F) 16-34 M-Mode Dimensions RVDd 2.51 cm (0.9-2.6) LA Diam 3.52 cm (1.9-4.0) LVDd 4.45 cm (3.5-5.7) LVDs 2.78 cm (3.5-5.7) IVSd 2.48 cm (0.6-1.1) PWd 1.04 cm (0.6-1.1) EF (Teich) 67.80% FS 37.50% EDV (Teich) 90.10 mL TAPSE 1.68 (<1.7) ESV (Teich) 29.00 mL LV Diastology E Decel Time 93 (160-240 msec) E/A Ratio 0.49 MED A' 13.00 cm/s LAT A' 13.30 cm/s Aortic Valve AO Peak GR. 6.80 mmHg Mitral Valve MV A Velocity 94.0 (40-130 cm/s) E/A Ratio 0.49 Pulmonary Valve PV Peak Velocity 118.0 (50-150 cm/s) Tricuspid Valve TR P. Velocity 301.00 cm/s RAP Estimate 10.00 mmHg RVSP 46.30 mmHg Left Ventricle The left ventricle is normal size. The left ventricular systolic function is normal. The left ventricular ejection fraction is within the normal range. There is marked increase in septal LV wall thickness (IVSd 1.6 cm). No evidence of LVOT obstruction at rest. There is normal LV segmental wall motion. Diastolic function is indeterminate. LVEF is 55%. Right Ventricle Right ventricle is moderately dilated. Right ventricle is mildly hypokinetic. Atria Left atrium is moderately dilated. Right atrium is moderately dilated. There is no Doppler evidence of interatrial shunt. Aortic Valve The aortic valve is mildly thickened. There is no aortic valvular stenosis. Trace aortic regurgitation. Mitral Valve The mitral valve is mildly thickened. No evidence of systolic anterior motion (DYLAN). No evidence of mitral valve stenosis. Mild mitral regurgitation. Tricuspid Valve The tricuspid valve leaflets are thin and pliable. Moderate tricuspid regurgitation. RVSP is 35-40 mmHg. Pulmonic Valve The pulmonary valve is normal in structure. Mild pulmonic regurgitation. Great Vessels The aortic root is normal in size. The ascending aorta is normal in size. IVC is normal in size and collapses >50% with inspiration. Pericardium There is no pericardial effusion. Other Information Study Quality: Fair Conclusion Normal LV systolic function. Marked increase in LV wall thickness (IVSd 1.6 cm). No evidence of LVOT obstruction at rest. Moderate RV dilation with mild reduction in RV function. Mild MR. Moderate TR. Elevated RVSP 35-40 mmHg. In the setting of increased LV wall thickness and biatrial dilation, further outpatient evaluation on non-urgent basis with cardiac MRI (amyoidosis protocol) + PYP nuclear scan + amyloidosis lab work-up is suggested. Electronically signed by : Nikia Mathias MD 01/19/2024 09:17:03
--- NOTE | 2024-01-17 02:00 | PC.NURSE ---
PATIENT RESTING QUIETLY. STATES NO PAIN UNLESS TRYING TO MOVE THE LEFT LEG. TELEMETRY: SINUS RHYTHM/BBB. PUREWICK IN USE FOR COMFORT. POSSIBLY SURGERY ON SATURDAY ACCORDING TO LIEN MUNOZ.
[2024-01-17] MEDS: MORPHINE 4MG/ML SYRINGE 4 MG IV ×3 (06:37→20:06)
--- NOTE | 2024-01-17 06:45 | EXP.CARD.CON ---
History of Present Illness History of Present Illness Consult date: 01/17/24 Requesting physician: Remy Segal Consult reason: pre-op evaluation Chief complaint: Fall with Left femur fracture Additional Medical History:: 1. Paroxysmal atrial fibrillation A. On Eliquis therapy 2. 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 Abnormal stress test (Lexiscan Myoview, January 2023) A. Medium size, moderate, predominantly fixed perfusion defect in the mid to distal anterior and anteroseptal LV osorio involving the anteroapical region. Minimal reversibility in the region. Global LV systolic function normal at 65%. Mild hypokinesis of the distal anterior and anteroapical LV osorio. B. Cardiac catheterization offered 11/20/2023, patient declined due to being asymptomatic. 4. Hypertension A. Echo, 03/05/2023, normal biventricular systolic function with moderate TR and RVSP of 35 to 40 mmHg. 5. Fall with left closed subcapital femur fracture, 01/16/2020 History of present illness: This is a 83-year-old female with a PMHx of paroxysmal atrial fibrillation on Eliquis, factor V deficiency, osteoporosis presented to the emergency department for evaluation with concern for left hip pain after a fall. Patient reports that she was cooking dinner when she suddenly turned for something and her body turned but her hips did not, causing her to fall and go to the ground. She felt immediate pain in her left hip and was unable to bear weight on her left hip afterward. She arrives personal vehicle as family helped carry her to the car. She did not hit her head or lose consciousness. No other concerns noted at this time. patient was independent with ADLs prior to the fall. admitted for treatment. The above per Shun Joy APRN for the hospitalist service Events as noted above confirmed with the patient. She denies any chest pain, pressure or tightness with ADLs recently. She does note occasional shortness of breath but is able to lie flat without any smothering sensation. No change from office visit in November this year. [facility] Disclaimer: The information contained in this section may have been updated after the patient was seen, as this information can be updated by other users. Medical History Abnormal result of cardiovascular function study Thyroid goiter Paroxysmal A-fib Surgical History S/P conization of cervix H/O total hysterectomy S/P ORIF (open reduction internal fixation) fracture Social History Smoking Status: Never smoker second hand exposure: No alcohol intake: never current occupational status: retired Travel in the last 8 weeks: None household members: spouse housing: house current occupational exposures/hazards: No caffeine: No Review of Systems Review of Systems Review of systems:: pertinent systems reviewed and negative unless documented below *Cardiovascular Cardiovascular: Denies chest pain and Reports dyspnea on exertion *Respiratory Respiratory: Reports dyspnea on exertion *Musculoskeletal Musculoskeletal: Reports as per HPI Exam Data for Last 24 hours Vital signs and Labs for Last 24 Hours: Temp Pulse Resp BP Pulse Ox O2 Del Method O2 Flow Rate 97.7 F 66 18 153/73 H 100 Nasal Cannula 2 01/17/24 04:00 01/17/24 04:00 01/17/24 04:00 01/17/24 04:00 01/17/24 04:00 01/17/24 06:42 01/17/24 06:42 Laboratory Results - last 24 hr 01/16/24 20:40: WBC 12.3 H, RBC 4.02 L, Hgb 12.3, Hct 40.1, MCV 99.7 H, MCH 30.5, MCHC 30.6 L, RDW 13.7, Plt Count 209, MPV 8.8, Neut % (Auto) 87.6 H, Lymph % (Auto) 9.1 L, [place] % (Auto) 2.8, Eos % (Auto) 0.2, Baso % (Auto) 0.3, Neut # (Auto) 10.8 H, Lymph # (Auto) 1.1, [place] # (Auto) 0.4, Eos # (Auto) 0.0, Baso # (Auto) 0.0, Total Counted 100, Neutrophils % (Manual) 80 H, Lymphocytes % (Manual) 17, Atypical Lymphs % 1.0, Monocytes % (Manual) 2, RBC Morphology Normal, PT 11.3, INR 1.01, APTT 28.3, Sodium 135 L, Potassium 3.4 L, Chloride 103, Carbon Dioxide 27, Anion Gap 8.4, BUN 18 H, Creatinine 0.60, Estimated Creat Clear 37, Estimated GFR 95, Est GFR ( Amer) 115, Glucose 134 H, Calcium 8.4, Total Bilirubin 0.6, AST 28, ALT 19, Alkaline Phosphatase 104, Total Protein 7.1, Albumin 4.1, Globulin 3.0, Albumin/Globulin Ratio 1.4 I & O for Last 24 hours: Intake & Output 01/14/24 01/15/24 01/16/24 01/17/24 11:59 11:59 11:59 11:59 Intake Total 508 / 508 Balance 508 / 508 Weight 138 lb 3.2 oz Constitutional Constitutional: mild distress *Routine Respiratory Exam Respiratory: Present CTA bilaterally *Routine Cardiovascular Exam Cardiovascular: Present RRR and murmur; Absent gallop or rubs *Routine Extremities Exam Extremities: Absent edema *Routine Neurological Exam Neurological: Present alert, oriented X3 and CN II-XII intact Meds Home Medications and Allergies Home Medications ?Medication ?Instructions ?Recorded ?Confirmed ?Type cranberry fruit concentrate 250 mg 250 mg PO TID #90 tabs 02/05/23 01/16/24 Rx chewable tablet (Azo Cranberry) flaxseed oil 1,000 mg capsule 1,000 mg PO DAILY 03/29/23 01/16/24 History estradiol 0.01% (0.1 mg/gram) 1 appful vaginal MOWEFR 06/19/23 01/17/24 History vaginal cream fluticasone propionate 50 2 spray intranasal DAILY #16 grams 08/14/23 01/16/24 Rx mcg/actuation nasal spray,suspension (Flonase Allergy Relief) apixaban 2.5 mg tablet 2.5 mg PO BID 90 days #180 tabs 09/11/23 01/16/24 Rx diltiazem HCl 60 mg 60 mg PO BID 01/16/24 01/17/24 History capsule,extended release 12 hr New Prescriptions to Start Prescriptions: Allergies Allergy/AdvReac Type Severity Reaction Status Date / Time diazepam [From Valium] Allergy Verified 01/03/24 13:28 Assessment and Plan *Assessment and plan (1) Closed subcapital fracture of left femur: Status: Acute Qualifiers: Encounter type: initial encounter Qualified Code(s): S72.012A - Unspecified intracapsular fracture of left femur, initial encounter for closed fracture Category: Medical Code(s): S72.012A - Unspecified intracapsular fracture of left femur, initial encounter for closed fracture (2) Fall: Status: Acute Qualifiers: Encounter type: initial encounter Qualified Code(s): W19.XXXA - Unspecified fall, initial encounter Category: Medical Code(s): W19.XXXA - Unspecified fall, initial encounter (3) Hypokalemia: Status: Acute Category: Medical Code(s): E87.6 - Hypokalemia (4) Paroxysmal A-fib: Status: Acute Category: Medical Code(s): I48.0 - Paroxysmal atrial fibrillation (5) Factor 5 Leiden mutation, heterozygous: Status: Acute Category: Medical Code(s): D68.51 - Activated protein C resistance (6) HTN (hypertension): Status: Acute Qualifiers: Hypertension type: primary hypertension Qualified Code(s): I10 - Essential (primary) hypertension Category: Medical Code(s): I10 - Essential (primary) hypertension Plan 1. Fall with closed left subcapital femur fracture -defer to ortho -increased but acceptable risk from cardiovascular standpoint to proceed with surgery if indicated. 2. Paroxysmal atrial fibrillation -Holding Eliquis therapy for surgery -Heparin gtt bridge before and after surgery 3. Factor V Leiden -Chronic Eliquis therapy, on hold for possible surgery -Heparin gtt bridge before and after surgery 4. Hypertension Continue diltiazem 5. Hypokalemia, replacement has been started 6. Abnormal Lexiscan Myoview, 03/2023, clinically stable. No need for further testing prior to surgery, if indicated. Echo in progress with preliminary reading showing preserved ejection fraction with continued moderate TR. Patient is an increased but acceptable risk to proceed with surgery if needed. Recommend heparin drip before and 24 hr after surgery (to see if surgery site bleeds) before restarting eliquis.
[2024-01-17 06:50] LABS: Basophils % 0.2 % (0.1-2.0); Eosinophils # 0.1 K/mm3 (0.0-0.4); Eosinophils % 0.7 % (0.1-12.0); Hematocrit 37.5 % (37.0-47.0); Hemoglobin 11.7 g/dL (12.2-16.2); Lymphocytes # 1.4 K/mm3 (0.7-4.5); Lymphocytes % 17.7 % (10-50); Mean Corpuscular HGB Conc 31.3 g/dL (31.8-35.4); Mean Corpuscular Hemoglobin 31.1 pg (27.0-31.2); Mean Corpuscular Volume 99.5 fl (81-99); Mean Platelet Volume 8.7 fl (7.4-10.4); Monocytes # 0.4 K/mm3 (0.1-1.0); Monocytes % 5.6 % (1.7-9.3); Neutrophils # 5.9 K/mm3 (1.8-7.8); Neutrophils % 75.8 % (37.0-80.0); Platelet Count 184 K/mm3 (142-424); Red Blood Count 3.77 M/mm3 (4.20-5.40); Red Cell Distribution Width 13.6 % (11.5-17.5); White Blood Count 7.8 K/mm3 (4.8-10.8)
[2024-01-17 06:59] LABS: Albumin Level 3.8 g/dl (3.5-5.0); Chloride 106 mmol/L (98-107); Sodium 136 mmol/L (136-145)
[2024-01-17 07:00] LABS: Potassium 3.7 mmoL/L (3.5-5.1)
[2024-01-17 07:02] LABS: Alanine Aminotransferase 21 U/L (12-78); Alkaline Phosphatase 162 U/L (38-126); Anion Gap 8.7 mEq/L (5-15); Aspartate Amino Transferase 80 U/L (14-36); Bilirubin,Total 1.6 mg/dl (0.2-1.3); Blood Urea Nitrogen 14 mg/dl (7-17); Carbon Dioxide 25 mmol/L (22.0-30.0); Creatinine Clearance Estimated 41 mL/min (50-200); Estimated Glomerular Filt Rate 117 ml/min (>60); GFR (African American) 142 ML/MIN (>60)
[2024-01-17 07:03] LABS: Albumin/Globulin Ratio 1.3 (1.1-1.8); Calcium 7.8 mg/dl (8.4-10.2); Glucose 99 mg/dl (74-100); Total Protein,Serum 6.8 g/dl (6.3-8.2)
--- NOTE | 2024-01-17 07:32 | HMH.PHAINT1 ---
Pharmacy Intervention Comments: HOME MEDICATION LISTS VERIFIED USING LIST FROM OUTPATIENT PHARMACY AND PT INTERVIEW
--- NOTE | 2024-01-17 07:34 | EXP.ACUTE.PN ---
Subjective *Date: 01/17/24 *Time: 15:04 Interval history: Denies any chest pain. Stable on room air. No nausea or vomiting. Pain well-controlled hip. Medical Exam Vital signs and Labs for Last 24 Hours: Vital Signs Temp Pulse Pulse Resp BP BP Pulse Ox 01/17/24 06:42 01/17/24 05:00 01/17/24 04:00 97.7 F 66 18 153/73 H 100 01/17/24 04:00 58 L 01/17/24 02:51 01/17/24 01:48 61 01/17/24 00:50 01/17/24 00:00 98.2 F 77 20 124/65 98 01/16/24 23:54 95 01/16/24 23:00 01/16/24 22:52 97.9 F 75 16 151/85 H 01/16/24 20:31 97.9 F 70 18 172/84 H 95 O2 Del Method O2 Flow Rate 01/17/24 06:42 Nasal Cannula 2 01/17/24 05:00 Nasal Cannula 2 01/17/24 04:00 Nasal Cannula 2 01/17/24 04:00 01/17/24 02:51 Nasal Cannula 2 01/17/24 01:48 01/17/24 00:50 Nasal Cannula 2 01/17/24 00:00 Nasal Cannula 2 01/16/24 23:54 Nasal Cannula 2 01/16/24 23:00 Nasal Cannula 2 01/16/24 22:52 Nasal Cannula 2 01/16/24 20:31 Room Air Intake and Output 01/16/24 01/16/24 01/17/24 15:59 23:59 07:59 Intake Total 508 / 508 Balance 508 / 508 Intake: Intake, Oral Amount 240 / 240 Intake, Total IV Amount 268 / 268 0.9 % Sodium Chloride 1000ML 1, 268 / 268 000 ml @ 50 mls/hr IV .Q20H ONE Rx#:[id number] Other: Number of Voids 1 Number of Unmeasured Voids 1 Number of Urine Attends/Diapers 1 Weight 56.699 kg 62.686 kg Patient Weight 01/17/24 23:59 Weight 62.686 kg Laboratory Results - last 24 hr 01/16/24 20:40: WBC 12.3 H, RBC 4.02 L, Hgb 12.3, Hct 40.1, MCV 99.7 H, MCH 30.5, MCHC 30.6 L, RDW 13.7, Plt Count 209, MPV 8.8, Neut % (Auto) 87.6 H, Lymph % (Auto) 9.1 L, [place] % (Auto) 2.8, Eos % (Auto) 0.2, Baso % (Auto) 0.3, Neut # (Auto) 10.8 H, Lymph # (Auto) 1.1, [place] # (Auto) 0.4, Eos # (Auto) 0.0, Baso # (Auto) 0.0, Total Counted 100, Neutrophils % (Manual) 80 H, Lymphocytes % (Manual) 17, Atypical Lymphs % 1.0, Monocytes % (Manual) 2, RBC Morphology Normal, PT 11.3, INR 1.01, APTT 28.3, Sodium 135 L, Potassium 3.4 L, Chloride 103, Carbon Dioxide 27, Anion Gap 8.4, BUN 18 H, Creatinine 0.60, Estimated Creat Clear 37, Estimated GFR 95, Est GFR ( Amer) 115, Glucose 134 H, Calcium 8.4, Total Bilirubin 0.6, AST 28, ALT 19, Alkaline Phosphatase 104, Total Protein 7.1, Albumin 4.1, Globulin 3.0, Albumin/Globulin Ratio 1.4 01/17/24 05:59: WBC 7.8 D, RBC 3.77 L, Hgb 11.7 L, Hct 37.5, MCV 99.5 H, MCH 31.1, MCHC 31.3 L, RDW 13.6, Plt Count 184, MPV 8.7, Neut % (Auto) 75.8, Lymph % (Auto) 17.7, [place] % (Auto) 5.6, Eos % (Auto) 0.7, Baso % (Auto) 0.2, Neut # (Auto) 5.9, Lymph # (Auto) 1.4, [place] # (Auto) 0.4, Eos # (Auto) 0.1, Baso # (Auto) 0.0, Sodium 136, Potassium 3.7, Chloride 106, Carbon Dioxide 25, Anion Gap 8.7, BUN 14, Creatinine 0.50 L, Estimated Creat Clear 41, Estimated GFR 117, Est GFR ( Amer) 142 D, Glucose 99 D, Calcium 7.8 L, Magnesium 2.0, Total Bilirubin 1.6 H, AST 80 H D, ALT 21, Alkaline Phosphatase 162 H, Total Protein 6.8, Albumin 3.8, Globulin 3.0, Albumin/Globulin Ratio 1.3 I & O for Labs for Last 24 Hours: Intake & Output 01/14/24 01/15/24 01/16/24 01/17/24 23:59 23:59 23:59 23:59 Intake Total 508 / 508 Balance 508 / 508 Weight 56.699 kg 62.686 kg Constitutional: Present no acute distress, average body habitus, chronically ill appearing and cooperative Head: Present atraumatic and normocephalic ENT: Present normal exam Neck: Present normal inspection Respiratory: Present normal respiratory effort; Absent rhonchi, wheezes or crackles Cardiac: Present Reg Rate and Rhythm GI: Present soft and normal bowel sounds; Absent distention or tenderness Comment:: Left hip tender to palpation, left leg externally rotated somewhat shorter than right leg Skin: Present intact; Absent erythema Neuro: Present Grossly Intact, alert, awake, oriented x 3 and moves all extremities Assessment and Plan *Assessment and plan (1) Closed subcapital fracture of left femur: Status: Acute Qualifiers: Encounter type: initial encounter Qualified Code(s): S72.012A - Unspecified intracapsular fracture of left femur, initial encounter for closed fracture Category: Medical Code(s): S72.012A - Unspecified intracapsular fracture of left femur, initial encounter for closed fracture (2) Fall: Status: Acute Qualifiers: Encounter type: initial encounter Qualified Code(s): W19.XXXA - Unspecified fall, initial encounter Category: Medical Code(s): W19.XXXA - Unspecified fall, initial encounter (3) Hypokalemia: Status: Acute Category: Medical Code(s): E87.6 - Hypokalemia (4) Paroxysmal A-fib: Status: Acute Category: Medical Code(s): I48.0 - Paroxysmal atrial fibrillation (5) Elevated BP without diagnosis of hypertension: Status: Acute Category: Medical Code(s): R03.0 - Elevated blood-pressure reading, without diagnosis of hypertension Plan 83-year-old female with a PMHx of paroxysmal atrial fibrillation on Eliquis, factor V deficiency, osteoporosis presented to the emergency department for evaluation with concern for left hip pain after a fall. Patient arrived on visible discomfort, with tenderness to palpation over left hip. All compartments soft. Neurovascularly intact distally. CT showed left subcapital neck femur fracture. case was also discussed with ORTHo. admission requested. Admitted to medicine for further management. Planning for surgery on Saturday. Problems addressed as follows: Closed subcapital fracture of left femoral: secondary to ground-level fall hypokalemia Hx of afib on chronic eliquis Elevated blood pressure without diagnosis of hypertension - Discussed case with orthopedics, planning for hemiarthroplasty of left hip. Plan for surgery on Saturday. Will bridge with Lovenox in the meantime. Awaiting at least 48 hours after last dose of Eliquis. Last dose taken 01/15. -Potassium 3.7, magnesium 2.0. Kidney function normal with creatinine 0.5, BUN 14. -White count normal at 7.8, mild anemia with hemoglobin 11.7. - Continue Tylenol 650 mg as needed every 4 hours, morphine 4 mg as needed every 4 hours for severe pain. Monitor for toxicity. Cardiology consulted, patient optimized. No preop interventions necessary at this time. Continue diltiazem for rate control 60 mg twice daily and bridge with Lovenox 1 mg/kg twice daily for anticoagulation. Repeat CBC, CMP, magnesium ordered for the morning. Lovenox 1 mg/kg twice daily Protonix for GI bleed protection Full code Cardiac diet
[2024-01-17] MEDS: DOCUSATE SODIUM 100 MG CAPSULE PO (08:34)
[2024-01-17] MEDS: HEPARIN SODIUM,PORCINE/D5W 500 ML 18 UNIT IV (09:11)
[2024-01-17] MEDS: HEPARIN SODIUM 5,000 UNIT/ML VIAL 4400 UNIT IV (09:12)
--- NOTE | 2024-01-17 09:13 | HMH.PHAHEP ---
[facility] Pharmacy Heparin Dosing Demographic Data Admission date:: 01/17/24 Date: 01/17/24 Time: 09:14 Allergies Allergy/AdvReac Type Severity Reaction Status Date / Time diazepam [From Valium] Allergy Verified 01/03/24 13:28 Height: 1.52 m Weight: 62.686 kg Indication Medication therapy:: Heparin and Lovenox Current Active Problems (Updated 01/17/24 @ 06:52 by JT Campos) HTN (hypertension) (Acute) Factor 5 Leiden mutation, heterozygous (Acute) Hypokalemia (Acute) Fall (Acute) Closed subcapital fracture of left femur (Acute) Elevated BP without diagnosis of hypertension (Acute) Paroxysmal A-fib (Acute) CVA?: No Bleeding problem?: No Kidney disease?: No [place]?: No Additional History:: FALL AND LEFT HIP FRACTURE, [facility] ANTICOAGULATION, HX OF PAF AND FACTOR V Desired PTT range:: 50-75 seconds Labs Anticoagulation Lab Results:: 01/16/24 01/17/24 20:40 05:59 Hgb 12.3 11.7 L Hct 40.1 37.5 Plt Count 209 184 Monitoring Dose Monitor 1: Date: 01/17/24 Time: 09:15 PTT Result:: 28.3 (BASELINE ON 01/16/24) Infusion Rate:: 900 UNITS/HR (18 ML/HR) Comment:: BOLUS OF 4400 UNITS Core Measures Is INR > or = 2 at discharge?: No Most Recent Labs:: Laboratory Results - last 24 hr 01/16/24 20:40: WBC 12.3 H, RBC 4.02 L, Hgb 12.3, Hct 40.1, MCV 99.7 H, MCH 30.5, MCHC 30.6 L, RDW 13.7, Plt Count 209, MPV 8.8, Neut % (Auto) 87.6 H, Lymph % (Auto) 9.1 L, [place] % (Auto) 2.8, Eos % (Auto) 0.2, Baso % (Auto) 0.3, Neut # (Auto) 10.8 H, Lymph # (Auto) 1.1, [place] # (Auto) 0.4, Eos # (Auto) 0.0, Baso # (Auto) 0.0, Total Counted 100, Neutrophils % (Manual) 80 H, Lymphocytes % (Manual) 17, Atypical Lymphs % 1.0, Monocytes % (Manual) 2, RBC Morphology Normal, PT 11.3, INR 1.01, APTT 28.3, Sodium 135 L, Potassium 3.4 L, Chloride 103, Carbon Dioxide 27, Anion Gap 8.4, BUN 18 H, Creatinine 0.60, Estimated Creat Clear 37, Estimated GFR 95, Est GFR ( Amer) 115, Glucose 134 H, Calcium 8.4, Total Bilirubin 0.6, AST 28, ALT 19, Alkaline Phosphatase 104, Total Protein 7.1, Albumin 4.1, Globulin 3.0, Albumin/Globulin Ratio 1.4 01/17/24 05:59: WBC 7.8 D, RBC 3.77 L, Hgb 11.7 L, Hct 37.5, MCV 99.5 H, MCH 31.1, MCHC 31.3 L, RDW 13.6, Plt Count 184, MPV 8.7, Neut % (Auto) 75.8, Lymph % (Auto) 17.7, [place] % (Auto) 5.6, Eos % (Auto) 0.7, Baso % (Auto) 0.2, Neut # (Auto) 5.9, Lymph # (Auto) 1.4, [place] # (Auto) 0.4, Eos # (Auto) 0.1, Baso # (Auto) 0.0, Sodium 136, Potassium 3.7, Chloride 106, Carbon Dioxide 25, Anion Gap 8.7, BUN 14, Creatinine 0.50 L, Estimated Creat Clear 41, Estimated GFR 117, Est GFR ( Amer) 142 D, Glucose 99 D, Calcium 7.8 L, Magnesium 2.0, Total Bilirubin 1.6 H, AST 80 H D, ALT 21, Alkaline Phosphatase 162 H, Total Protein 6.8, Albumin 3.8, Globulin 3.0, Albumin/Globulin Ratio 1.3 If INR was < than 2.0 why was therapy stopped?: LOVENOX Were Heparin and Warfarin started on the same day?: No If not, why?: LOVENOX
[2024-01-17 09:51] LABS: PTT Heparin (inpatient only) 34.7 Seconds (50-75)
--- NOTE | 2024-01-17 10:48 | HMH.PTWOUND ---
Rehab Inpt Wound Evaluation Rehab IP Wound Evaluation Start: 01/17/24 07:46 Freq: ONCE Status: Active Protocol: Document 01/17/24 10:43 MICKY (Rec: 01/17/24 10:46 PHOAILYN [id number]) Rehab PT Wound Assessment Subjective Subjective 83 yowf adm to [facility] with L hip fx S/P ground level fall at home. Inpatient PT wound eval order entered due to low johnathan scor on admission. Pt currently has no wounds noted and no needs for PT wound care currently. Nsg staff performing appropriate pressure relief as needed. Thank you for involving PT wound care team in the care of this patient. PHYSICIAN CERTIFICATION: I certify the specified therapy services for Karolyn Aviles are required, authorized, and reviewed every 30 days.
--- NOTE | 2024-01-17 10:50 | ECG_ITS ---
APPROVED REPORT Exam: Resting ECG HR:83 bpm ECG Measurements Heart Rate 83 AXES OH 159 P 75 QRSd 150 QRS -70 QT 388 T 50 QTc 428 Conclusion SINUS RHYTHM RIGHT BUNDLE BRANCH BLOCK [120+ ms QRS DURATION, UPRIGHT V1, 40+ ms S IN I/aVL/V4/V5/V6] LEFT ANTERIOR FASCICULAR BLOCK [QRS AXIS <= -45, QR IN I, RS IN II] ABNORMAL ECG UNCONFIRMED REPORT Electronically signed by : Rahat Sloan MD 01/17/2024 16:00:12
[2024-01-17] MEDS: dilTIAZem 60MG TABLET 60 MG PO ×2 (11:20→20:06)
--- NOTE | 2024-01-17 12:46 | P.CONS_ITS ---
History of Present Illness *Admission Date: 01/17/24 *History of present illness: This is a 83-year-old female with a PMHx of paroxysmal atrial fibrillation on Eliquis, factor V deficiency, osteoporosis presented to the emergency department for evaluation with concern for left hip pain after a fall. Patient reports that she was cooking dinner when she suddenly turned for something and her body turned but her hips did not, causing her to fall and go to the ground. She felt immediate pain in her left hip and was unable to bear weight on her left hip afterward. She arrives personal vehicle as family helped carry her to the car. She did not hit her head or lose consciousness. No other concerns noted at this time. patient was independent with ADLs prior to the fall. admitted for treatment. Ortho consulted for treatment options. [facility] Disclaimer: The information contained in this section may have been updated after the patient was seen, as this information can be updated by other users. Medical History Abnormal result of cardiovascular function study Thyroid goiter Paroxysmal A-fib Surgical History S/P conization of cervix H/O total hysterectomy S/P ORIF (open reduction internal fixation) fracture Social History Smoking Status: Never smoker second hand exposure: No alcohol intake: never current occupational status: retired Travel in the last 8 weeks: None household members: spouse housing: house current occupational exposures/hazards: No caffeine: No Meds Home Medications and Allergies Home Medications ?Medication ?Instructions ?Recorded ?Confirmed ?Type cranberry fruit concentrate 250 mg 250 mg PO TID #90 tabs 02/05/23 01/16/24 Rx chewable tablet (Azo Cranberry) flaxseed oil 1,000 mg capsule 1,000 mg PO DAILY 03/29/23 01/16/24 History estradiol 0.01% (0.1 mg/gram) 1 appful vaginal MOWEFR 06/19/23 01/17/24 History vaginal cream fluticasone propionate 50 2 spray intranasal DAILY #16 grams 08/14/23 01/16/24 Rx mcg/actuation nasal spray,suspension (Flonase Allergy Relief) apixaban 2.5 mg tablet 2.5 mg PO BID 90 days #180 tabs 09/11/23 01/16/24 Rx diltiazem HCl 60 mg 60 mg PO BID 01/16/24 01/17/24 History capsule,extended release 12 hr New Prescriptions to Start Prescriptions: Allergies Allergy/AdvReac Type Severity Reaction Status Date / Time diazepam [From Valium] Allergy Verified 01/03/24 13:28 Ortho Exam (Inpt) Vital signs and Labs for Last 24 Hours: Temp Pulse Resp BP Pulse Ox O2 Del Method O2 Flow Rate 98.1 F 73 19 158/79 H 96 Room Air 2 01/17/24 08:00 01/17/24 08:00 01/17/24 08:00 01/17/24 08:00 01/17/24 08:00 01/17/24 11:00 01/17/24 08:00 Laboratory Results - last 24 hr 01/16/24 20:40: WBC 12.3 H, RBC 4.02 L, Hgb 12.3, Hct 40.1, MCV 99.7 H, MCH 30.5, MCHC 30.6 L, RDW 13.7, Plt Count 209, MPV 8.8, Neut % (Auto) 87.6 H, Lymph % (Auto) 9.1 L, [place] % (Auto) 2.8, Eos % (Auto) 0.2, Baso % (Auto) 0.3, Neut # (Auto) 10.8 H, Lymph # (Auto) 1.1, [place] # (Auto) 0.4, Eos # (Auto) 0.0, Baso # (Auto) 0.0, Total Counted 100, Neutrophils % (Manual) 80 H, Lymphocytes % (Manual) 17, Atypical Lymphs % 1.0, Monocytes % (Manual) 2, RBC Morphology Normal, PT 11.3, INR 1.01, APTT 28.3, Sodium 135 L, Potassium 3.4 L, Chloride 103, Carbon Dioxide 27, Anion Gap 8.4, BUN 18 H, Creatinine 0.60, Estimated Creat Clear 37, Estimated GFR 95, Est GFR ( Amer) 115, Glucose 134 H, Calcium 8.4, Total Bilirubin 0.6, AST 28, ALT 19, Alkaline Phosphatase 104, Total Protein 7.1, Albumin 4.1, Globulin 3.0, Albumin/Globulin Ratio 1.4 01/17/24 05:59: WBC 7.8 D, RBC 3.77 L, Hgb 11.7 L, Hct 37.5, MCV 99.5 H, MCH 31.1, MCHC 31.3 L, RDW 13.6, Plt Count 184, MPV 8.7, Neut % (Auto) 75.8, Lymph % (Auto) 17.7, [place] % (Auto) 5.6, Eos % (Auto) 0.7, Baso % (Auto) 0.2, Neut # (Auto) 5.9, Lymph # (Auto) 1.4, [place] # (Auto) 0.4, Eos # (Auto) 0.1, Baso # (Auto) 0.0, Sodium 136, Potassium 3.7, Chloride 106, Carbon Dioxide 25, Anion Gap 8.7, BUN 14, Creatinine 0.50 L, Estimated Creat Clear 41, Estimated GFR 117, Est GFR ( Amer) 142 D, Glucose 99 D, Calcium 7.8 L, Magnesium 2.0, T otal Bilirubin 1.6 H, AST 80 H D, ALT 21, Alkaline Phosphatase 162 H, Total Protein 6.8, Albumin 3.8, Globulin 3.0, Albumin/Globulin Ratio 1.3 01/17/24 09:20: APTT 34.7 L I & O for Labs for Last 24 Hours: Intake & Output 01/14/24 01/15/24 01/16/24 01/17/24 23:59 23:59 23:59 23:59 Intake Total 738 / 738 Output Total 0 / 0 Balance 738 / 738 Weight 125 lb 138 lb 3.183 oz Head: Present normocephalic and atraumatic Additional findings:: Left hip shortened slightly externally rotated painful with any active range of motion. X-rays and CT scan of the left hip show subcapital fracture femoral neck displaced Results Labs 01/17/24 05:59 01/17/24 05:59 Labs: Abnormal lab results 01/16/24 01/17/24 01/17/24 Range/Units 20:40 05:59 09:20 WBC 12.3 H (4.8-10.8) K/mm3 RBC 4.02 L 3.77 L (4.20-5.40) M/mm3 Hgb 11.7 L (12.2-16.2) g/dL MCV 99.7 H 99.5 H (81-99) fl MCHC 30.6 L 31.3 L (31.8-35.4) g/dL Neut % (Auto) 87.6 H (37.0-80.0) % Lymph % (Auto) 9.1 L (10-50) % Neut # (Auto) 10.8 H (1.8-7.8) K/mm3 Neutrophils % (Manual) 80 H (42-76) % APTT 34.7 L (50-75) Seconds Sodium 135 L (136-145) mmol/L Potassium 3.4 L (3.5-5.1) mmoL/L BUN 18 H (7-17) mg/dl Creatinine 0.50 L (0.52-1.04) mg/dl Glucose 134 H (74-100) mg/dl Calcium 7.8 L (8.4-10.2) mg/dl Total Bilirubin 1.6 H (0.2-1.3) mg/dl AST 80 H D (14-36) U/L Alkaline Phosphatase 162 H (38-126) U/L H & H 01/16/24/ Range/Units 20:40 05:59 Hgb 12.3 11.7 L (12.2-16.2) g/dL Hct 40.1 37.5 (37.0-47.0) % Coagulation / Range/Units 20:40 INR 1.01 (0.9-1.1) All other labs normal. Assessment and Plan *Assessment and plan (1) Displaced fracture of left femoral neck: Status: Acute Category: Medical Code(s): S72.002A - Fracture of unspecified part of neck of left femur, initial encounter for closed fracture Plan I met with the family and the patient and talked about treatment options. Unfortunately she is on Eliquis. She will require hemiarthroplasty of the hip to restore function on the left side. She is a viable and reasonable candidate for this. I discussed with the patient and the family regards of delaying the surgery secondary to Eliquis. No plans will be surgical intervention on Saturday. She will be allowed to be weightbearing as tolerated following the surgery. May require a period of rehabilitation at residential facility following the surgery. Will make arrangements following evaluation of physical therapy after surgery. PROPOSED SURGERY: Hemiarthroplasty left hip the risks and benefits of the proposed surgery were discussed in depth with the patient. Potential complications including inherent risk of anesthesia, infection, neurovascular damage, DVT, and rare but real potential loss of limb or life were all reviewed. Patient voices understanding and seems to understand to my satisfaction and wishes to proceed with surgery. I gave them adequate time to ask any questions they have pertaining to this surgery and answered all of them to the best of my ability. I gave them no guarantees in regards to outcomes of this surgery.
[2024-01-17] MEDS: ONDANSETRON 4MG/2ML VIAL 4 MG IV (12:49)
--- NOTE | 2024-01-17 14:22 | SW/DCPLANNER ---
Addendum entered by [facility] 01/22/24 15:08: Per Lenore patient can admit to [facility] level of care today. Addendum entered by [facility] 01/22/24 14:55: Updated patient information faxed to Lenore avelar/ Rico Marie. I am waiting to hear back from Lenore regarding patient discharging w/ cath approval. Addendum entered by [facility] 01/21/24 11:08: Patient is approved SNF level of care and will discharge to [facility] today. Addendum entered by [facility] 01/21/24 09:04: Per Lenore avelar/ [facility] precert has been started this AM. Original Note: I spoke w/ patient and her family regarding plans once medically stable for discharge. Ortho plans to do hip surgery on Friday 01/19 pending no setbacks. Patient/family request that information be faxed to [facility] incase placement is needed at time of discharge. Information has been faxed to Lenore avelar/ [facility]. I will follow up w/ patient/family and [facility] Saturday morning.
[2024-01-17 15:46] LABS: PTT Heparin (inpatient only) 30.4 Seconds (50-75)
[2024-01-17] MEDS: ALUMINUM/MAGNESIUM/SIMETHICONE 30ML UDC 30 ML PO (17:13)
--- NOTE | 2024-01-17 18:22 | PC.NURSE ---
Pt has done well this shift. VSS. Treated per MAR for pain. Has attempted to have a BM x2 today but no BM. Pt also treated per MAR for heartburn. No other needs or concerns voiced this shift.
[2024-01-17] MEDS: ENOXAPARIN 80MG/0.8ML SYRINGE 65 MG SQ (20:06)
[2024-01-17] MEDS: PANTOPRAZOLE 40MG TABLET 40 MG PO (20:06)
[2024-01-18] VITALS (8 sets, daily range): BP systolic 128–166; BP diastolic 57–84; PULSE 68–89; RESP 16–21; TEMP 36.4–37.4; O2SAT 90–96; BMI 26.4
[2024-01-18] MEDS: ACETAMINOPHEN 325MG TAB 650 MG PO ×2 (04:13→12:50)
--- NOTE | 2024-01-18 04:20 | PC.NURSE ---
Patient alert and oriented x4 this shift. O2 stats dropping to 83-86% on room air when resting, patient placed on 2L NC this shift. Pain treated per AUG. Purewick in place with little output this shift. No further needs or complaints expressed this shift. Bed alarm on for patient safety. Call light within reach.
--- NOTE | 2024-01-18 07:29 | EXP.ACUTE.PN ---
Subjective *Date: 01/18/24 *Time: 13:10 Interval history: Pain managed fairly well as long as she is not moving. Poor p.o. intake but this is her personal preference as she said she is not very hungry. 2 L nasal cannula. Afebrile. No nausea or vomiting. Denies any chest pain. Alert and oriented x 4. Family at bedside. Medical Exam Vital signs and Labs for Last 24 Hours: Vital Signs Temp Pulse Pulse Resp BP Pulse Ox O2 Del Method 01/18/24 06:54 Nasal Cannula 01/18/24 04:54 Nasal Cannula 01/18/24 04:00 99.3 F 80 18 130/62 95 Nasal Cannula 01/18/24 04:00 80 01/18/24 03:00 Room Air 01/18/24 01:03 Room Air 01/18/24 00:00 80 01/18/24 00:00 98.3 F 77 16 128/76 90 L Room Air 01/17/24 23:00 Room Air 01/17/24 21:00 Room Air 01/17/24 20:06 Room Air 01/17/24 20:00 80 01/17/24 20:00 98.8 F 86 18 132/64 90 L Room Air 01/17/24 18:52 Room Air 01/17/24 17:00 Room Air 01/17/24 16:00 85 01/17/24 16:00 99.0 F 84 18 151/71 H 88 L Room Air 01/17/24 15:00 Room Air 01/17/24 13:00 Room Air 01/17/24 12:00 85 01/17/24 12:00 98.5 F 79 18 148/83 H 88 L Room Air 01/17/24 11:00 Room Air 01/17/24 09:00 Room Air 01/17/24 08:00 98.1 F 73 19 158/79 H 96 Nasal Cannula 01/17/24 08:00 70 01/17/24 07:44 Nasal Cannula O2 Flow Rate 01/18/24 06:54 2 01/18/24 04:54 2 01/18/24 04:00 2 01/18/24 04:00 01/18/24 03:00 01/18/24 01:03 01/18/24 00:00 01/18/24 00:00 01/17/24 23:00 01/17/24 21:00 01/17/24 20:06 01/17/24 20:00 01/17/24 20:00 01/17/24 18:52 01/17/24 17:00 01/17/24 16:00 01/17/24 16:00 01/17/24 15:00 01/17/24 13:00 01/17/24 12:00 01/17/24 12:00 01/17/24 11:00 01/17/24 09:00 01/17/24 08:00 2 01/17/24 08:00 01/17/24 07:44 1 Intake and Output 01/17/24 01/17/24 01/18/24 15:59 23:59 07:59 Intake Total 350 / 1058 200 / 1058 Output Total 0 / 0 100 / 100 Balance 350 / 1058 200 / 1058 -100 / -100 Intake: Intake, Oral Amount 350 / 790 200 / 790 Output: Output, Urine Amount 0 / 0 100 / 100 Other: Number of Unmeasured Voids 1 0 Weight 62.686 kg 61.099 kg Patient Weight 01/18/24 23:59 Weight 61.099 kg Laboratory Results - last 24 hr 01/17/24 09:20: APTT 34.7 L 01/17/24 15:25: APTT 30.4 L I & O for Labs for Last 24 Hours: Intake & Output 01/15/24 01/16/24 01/17/24 01/18/24 23:59 23:59 23:59 23:59 Intake Total 1058 / 1058 Output Total 0 / 0 100 / 100 Balance 1058 / 1058 -100 / -100 Weight 56.699 kg 62.686 kg 61.099 kg Constitutional: Present no acute distress, average body habitus, chronically ill appearing and cooperative Head: Present atraumatic and normocephalic ENT: Present normal exam Neck: Present normal inspection Respiratory: Present normal respiratory effort; Absent rhonchi, wheezes or crackles Cardiac: Present Reg Rate and Rhythm GI: Present soft and normal bowel sounds; Absent distention or tenderness Comment:: Left hip tender to palpation, left leg externally rotated somewhat shorter than right leg Skin: Present intact; Absent erythema Neuro: Present Grossly Intact, alert, awake, oriented x 3 and moves all extremities Assessment and Plan *Assessment and plan (1) Closed subcapital fracture of left femur: Status: Acute Qualifiers: Encounter type: initial encounter Qualified Code(s): S72.012A - Unspecified intracapsular fracture of left femur, initial encounter for closed fracture Category: Medical Code(s): S72.012A - Unspecified intracapsular fracture of left femur, initial encounter for closed fracture (2) Fall: Status: Acute Qualifiers: Encounter type: initial encounter Qualified Code(s): W19.XXXA - Unspecified fall, initial encounter Category: Medical Code(s): W19.XXXA - Unspecified fall, initial encounter (3) Hypokalemia: Status: Acute Category: Medical Code(s): E87.6 - Hypokalemia (4) Paroxysmal A-fib: Status: Acute Category: Medical Code(s): I48.0 - Paroxysmal atrial fibrillation (5) Elevated BP without diagnosis of hypertension: Status: Acute Category: Medical Code(s): R03.0 - Elevated blood-pressure reading, without diagnosis of hypertension Plan 83-year-old female with a PMHx of paroxysmal atrial fibrillation on Eliquis, factor V deficiency, osteoporosis presented to the emergency department for evaluation with concern for left hip pain after a fall. Patient arrived on visible discomfort, with tenderness to palpation over left hip. All compartments soft. Neurovascularly intact distally. CT showed left subcapital neck femur fracture. case was also discussed with Orthopedics. admission requested. Admitted to medicine for further management. Planning for surgery on Saturday. Tolerating current pain regimen. No acute changes overnight. Problems addressed as follows: Closed subcapital fracture of left femoral: secondary to ground-level fall hypokalemia Hx of afib on chronic eliquis Elevated blood pressure without diagnosis of hypertension -Orthopedics planning for hemiarthroplasty of left hip on Saturday. Continue to bridge with Lovenox 1 mg/kg twice daily. waiting at least 48 hours after last dose of Eliquis. Last dose 01/15. -Lab holiday today, repeat CBC, CMP, magnesium ordered for the morning. - Continue Tylenol 650 mg as needed every 4 hours, morphine 4 mg as needed every 4 hours for severe pain. Monitor for toxicity. Cardiology consulted, patient optimized. No preop interventions necessary at this time. Continue diltiazem for rate control 60 mg twice daily and bridge with Lovenox 1 mg/kg twice daily for anticoagulation. Lovenox 1 mg/kg twice daily Protonix for GI bleed protection Full code Cardiac diet
[2024-01-18] MEDS: ENOXAPARIN 80MG/0.8ML SYRINGE 65 MG SQ (08:09)
[2024-01-18] MEDS: DOCUSATE SODIUM 100 MG CAPSULE PO (08:09)
[2024-01-18] MEDS: dilTIAZem 60MG TABLET 60 MG PO (08:09)
--- NOTE | 2024-01-18 17:19 | PC.NURSE ---
Patient alert and oriented x4 this shift. pt started shift on 2L NC, with sats 96-98%. pt weaned and placed on RA with sats 95-97%. pt complained of pain when being rolled on and off of the bedpan this morning when she expressed the feeling of needing to have a bowel movement (no bm produced-just gas). Pain treated per AUG. Purewick in place with 250 ml emptied at 1600. pt has complained of not being able to have a bowel movement and feeling fullness in the abdomen. Stool softener administered this am per aug, pt given warm tea to drink & intake of fluids encouraged. pt states that she has not had much of am appetite since admission and has only eaten about 25% of her trays this shift. pt declined snacks offered throughout the shift, but drank an ensure after lunch. No further needs or complaints expressed. Bed alarm on for patient safety. Call light within reach.
[2024-01-18] MEDS: PANTOPRAZOLE 40MG TABLET 40 MG PO (21:24)
[2024-01-18] MEDS: ENOXAPARIN 60MG/0.6ML SYRINGE 60 MG SQ (21:24)
[2024-01-18] MEDS: MORPHINE 4MG/ML SYRINGE 4 MG IV (21:25)
[2024-01-19] VITALS (7 sets, daily range): BP systolic 144–178; BP diastolic 73–83; PULSE 75–91; RESP 16–21; TEMP 36.5–37; O2SAT 94–100; BMI 27.1; BMI 27.0
[2024-01-19] MEDS: ALUMINUM/MAGNESIUM/SIMETHICONE 30ML UDC 30 ML PO (01:02)
--- NOTE | 2024-01-19 05:32 | PC.NURSE ---
Patient is A&OX4 and has tolerated room air this shift. Lung sounds clear throughout and bowel sounds active in all quadrants. Pt did complain of hip pain and was treated per MAR. Pt hasn't had any BMs this shift just gas. She has had a poor appetite and reports not feeling like eating. She has no complaints at this time, call light within reach.
[2024-01-19 07:09] LABS: Basophils % 0.3 % (0.1-2.0); Eosinophils # 0.2 K/mm3 (0.0-0.4); Eosinophils % 2.1 % (0.1-12.0); Hematocrit 35.7 % (37.0-47.0); Hemoglobin 11.5 g/dL (12.2-16.2); Lymphocytes # 1.3 K/mm3 (0.7-4.5); Lymphocytes % 17.8 % (10-50); Mean Corpuscular HGB Conc 32.1 g/dL (31.8-35.4); Mean Corpuscular Hemoglobin 31.1 pg (27.0-31.2); Mean Corpuscular Volume 96.7 fl (81-99); Mean Platelet Volume 9.2 fl (7.4-10.4); Monocytes # 0.7 K/mm3 (0.1-1.0); Monocytes % 8.6 % (1.7-9.3); Neutrophils # 5.4 K/mm3 (1.8-7.8); Neutrophils % 71.1 % (37.0-80.0); Platelet Count 176 K/mm3 (142-424); Red Blood Count 3.69 M/mm3 (4.20-5.40); Red Cell Distribution Width 13.6 % (11.5-17.5); White Blood Count 7.6 K/mm3 (4.8-10.8)
[2024-01-19 07:19] LABS: Albumin Level 3.4 g/dl (3.5-5.0); Chloride 99 mmol/L (98-107); Sodium 132 mmol/L (136-145)
[2024-01-19 07:20] LABS: Potassium 3.9 mmoL/L (3.5-5.1)
[2024-01-19 07:22] LABS: Alanine Aminotransferase 16 U/L (12-78); Albumin/Globulin Ratio 1.2 (1.1-1.8); Alkaline Phosphatase 68 U/L (38-126); Anion Gap 6.9 mEq/L (5-15); Aspartate Amino Transferase 25 U/L (14-36); Bilirubin,Total 0.9 mg/dl (0.2-1.3); Blood Urea Nitrogen 12 mg/dl (7-17); Calcium 7.9 mg/dl (8.4-10.2); Carbon Dioxide 30 mmol/L (22.0-30.0); Creatinine Clearance Estimated 41 mL/min (50-200); Estimated Glomerular Filt Rate 117 ml/min (>60); GFR (African American) 142 ML/MIN (>60); Globulin 2.9 g/dL (1.3-3.2); Glucose 113 mg/dl (74-100); Total Protein,Serum 6.3 g/dl (6.3-8.2)
[2024-01-19 07:23] LABS: Magnesium 2.1 mg/dl (1.6-2.3)
--- NOTE | 2024-01-19 07:37 | P.PN_ITS ---
Subjective *Date: 01/19/24 *Time: 11:00 Interval history: Tolerating p.o. intake. Pain fairly well-controlled. Stable on room air. Had some gas overnight, improved with medication. Still no bowel movement. Medical Exam Vital signs and Labs for Last 24 Hours: Vital Signs Temp Pulse Pulse Resp BP Pulse Ox O2 Del Method 01/19/24 07:21 98 F 84 20 178/83 H 95 Room Air 01/19/24 06:34 Room Air 01/19/24 05:00 Room Air 01/19/24 04:00 83 01/19/24 04:00 98.6 F 83 16 155/79 H 94 L Room Air 01/19/24 03:00 Room Air 01/19/24 01:00 Room Air 01/19/24 00:00 91 H 01/18/24 23:53 98.8 F 83 18 166/84 H 93 L Room Air 01/18/24 23:00 Room Air 01/18/24 21:00 Room Air 01/18/24 20:00 83 01/18/24 20:00 Room Air 01/18/24 20:00 98.0 F 79 16 162/82 H 93 L Room Air 01/18/24 18:42 Room Air 01/18/24 17:00 Room Air 01/18/24 16:00 70 01/18/24 16:00 97.6 F 82 21 133/57 L 95 Room Air 01/18/24 15:00 Nasal Cannula 01/18/24 12:54 Nasal Cannula 01/18/24 12:00 70 01/18/24 12:00 89 19 134/60 95 Nasal Cannula 01/18/24 11:00 Nasal Cannula 01/18/24 09:00 Nasal Cannula 01/18/24 08:00 75 01/18/24 07:51 Nasal Cannula O2 Flow Rate 01/19/24 07:21 01/19/24 06:34 01/19/24 05:00 01/19/24 04:00 01/19/24 04:00 01/19/24 03:00 01/19/24 01:00 01/19/24 00:00 01/18/24 23:53 01/18/24 23:00 01/18/24 21:00 01/18/24 20:00 01/18/24 20:00 01/18/24 20:00 01/18/24 18:42 01/18/24 17:00 01/18/24 16:00 01/18/24 16:00 01/18/24 15:00 2 01/18/24 12:54 2 01/18/24 12:00 01/18/24 12:00 2 01/18/24 11:00 2 01/18/24 09:00 2 01/18/24 08:00 01/18/24 07:51 2 Intake and Output 01/18/24 01/18/24 01/19/24 15:59 23:59 07:59 Intake Total 300 / 830 510 / 510 Output Total 250 / 350 100 / 100 Balance 50 / 480 410 / 410 Intake: Intake, Oral Amount 300 / 830 510 / 510 Output: Output, Urine Amount 250 / 350 100 / 100 Other: Number of Voids 0 Weight 62.596 kg Patient Weight 01/19/24 23:59 Weight 62.596 kg Laboratory Results - last 24 hr 01/19/24 06:35: WBC 7.6, RBC 3.69 L, Hgb 11.5 L, Hct 35.7 L, MCV 96.7, MCH 31.1, MCHC 32.1, RDW 13.6, Plt Count 176, MPV 9.2, Neut % (Auto) 71.1, Lymph % (Auto) 17.8, [place] % (Auto) 8.6, Eos % (Auto) 2.1, Baso % (Auto) 0.3, Neut # (Auto) 5.4, Lymph # (Auto) 1.3, [place] # (Auto) 0.7, Eos # (Auto) 0.2, Baso # (Auto) 0.0, So dium 132 L, Potassium 3.9, Chloride 99, Carbon Dioxide 30, Anion Gap 6.9, BUN 12, Creatinine 0.50 L, Estimated Creat Clear 41, Estimated GFR 117, Est GFR ( Amer) 142, Glucose 113 H, Calcium 7.9 L, Magnesium 2.1, Total Bilirubin 0.9, AST 25 D, ALT 16, Alkaline Phosphatase 68, Total Protein 6.3, Albumin 3.4 L, Globulin 2.9, Albumin/Globulin Ratio 1.2 I & O for Labs for Last 24 Hours: Intake & Output 08/01/17/24 01/18/24 01/19/24 23:59 23:59 23:59 23:59 Intake Total 1058 / 1058 680 / 830 510 / 510 Output Total 0 / 0 350 / 350 100 / 100 Balance 1058 / 1058 330 / 480 410 / 410 Weight 56.699 kg 62.686 kg 61.099 kg 62.596 kg Constitutional: Present no acute distress, average body habitus, chronically ill appearing and cooperative Head: Present atraumatic and normocephalic ENT: Present normal exam Neck: Present normal inspection Respiratory: Present normal respiratory effort; Absent rhonchi, wheezes or crackles Cardiac: Present Reg Rate and Rhythm GI: Present soft and normal bowel sounds; Absent distention or tenderness Comment:: Left hip tender to palpation, left leg externally rotated somewhat shorter than right leg Skin: Present intact; Absent erythema Neuro: Present Grossly Intact, alert, awake, oriented x 3 and moves all extremities Assessment and Plan *Assessment and plan (1) Closed subcapital fracture of left femur: Status: Acute Qualifiers: Encounter type: initial encounter Qualified Code(s): S72.012A - Unspecified intracapsular fracture of left femur, initial encounter for closed fracture Category: Medical Code(s): S72.012A - Unspecified intracapsular fracture of left femur, initial encounter for closed fracture (2) Fall: Status: Acute Qualifiers: Encounter type: initial encounter Qualified Code(s): W19.XXXA - Unspecified fall, initial encounter Category: Medical Code(s): W19.XXXA - Unspecified fall, initial encounter (3) Hypokalemia: Status: Acute Category: Medical Code(s): E87.6 - Hypokalemia (4) Paroxysmal A-fib: Status: Acute Category: Medical Code(s): I48.0 - Paroxysmal atrial fibrillation (5) Elevated BP without diagnosis of hypertension: Status: Acute Category: Medical Code(s): R03.0 - Elevated blood-pressure reading, without diagnosis of hypertension Plan 83-year-old female with a PMHx of paroxysmal atrial fibrillation on Eliquis, factor V deficiency, osteoporosis presented to the emergency department for evaluation with concern for left hip pain after a fall. Patient arrived on visible discomfort, with tenderness to palpation over left hip. All compartments soft. Neurovascularly intact distally. CT showed left subcapital neck femur fracture. case was also discussed with Orthopedics. admission requested. Admitted to medicine for further management. Planning for surgery on Saturday. Tolerating current pain regimen. No acute changes overnight. Problems addressed as follows: Closed subcapital fracture of left femoral: secondary to ground-level fall hypokalemia Hx of afib on chronic eliquis Elevated blood pressure without diagnosis of hypertension -Orthopedics planning for hemiarthroplasty of left hip on Saturday. Continue to bridge with Lovenox 1 mg/kg twice daily. waiting at least 48 hours after last dose of Eliquis. Last dose 01/15. -CBC stable with hemoglobin 11.5, platelets 176. Sodium 132, magnesium 2.1, potassium 3.5. Kidney function normal with BUN 12, creatinine 0.5. Repeat CBC, CMP, magnesium, PT/INR ordered for the morning. - Continue Tylenol 650 mg as needed every 4 hours, morphine 4 mg as needed every 4 hours for severe pain. Has received 1 dose of IV morphine overnight. Monitor for toxicity. -Docusate daily for bowel regimen. Still no bowel movement yet since admission. Cardiology consulted, patient optimized. No preop interventions necessary at this time. Continue diltiazem for rate control 60 mg twice daily and bridge with Lovenox 1 mg/kg twice daily for anticoagulation. Lovenox 1 mg/kg twice daily, last dose this evening, holding in the morning tomorrow. Protonix for GI bleed protection Full code Cardiac diet, n.p.o. at midnight
[2024-01-19] MEDS: dilTIAZem 60MG TABLET 60 MG PO ×2 (09:41→20:01)
[2024-01-19] MEDS: ENOXAPARIN 60MG/0.6ML SYRINGE 60 MG SQ ×2 (09:42→20:02)
[2024-01-19] MEDS: DOCUSATE SODIUM 100 MG CAPSULE PO (09:42)
[2024-01-19] MEDS: ACETAMINOPHEN 325MG TAB 650 MG PO ×2 (09:42→20:02)
[2024-01-19] MEDS: SODIUM PHOS/BIPHOSPHATE FLEET 133ML ENEMA 133 ML RC (17:26)
[2024-01-19] MEDS: PANTOPRAZOLE 40MG TABLET 40 MG PO (20:02)
[2024-01-19] MEDS: ONDANSETRON 4MG/2ML VIAL 4 MG IV (20:02)
[2024-01-20] VITALS (22 sets, daily range): BP systolic 123–177; BP diastolic 60–88; PULSE 62–93; RESP 12–18; TEMP 36.4–43; O2SAT 94–99; BMI 26.5
[2024-01-20] MEDS: ACETAMINOPHEN 325MG TAB 650 MG PO ×2 (04:49→20:25)
--- NOTE | 2024-01-20 06:14 | PC.NURSE ---
Patient is A&OX4 and has tolerated room air. Lung sounds clear throughout and bowel sounds active in all quadrants. Pt has been treated for nausea and pain per MAR. Pt reports passing gas, but has not had a BM this shift. Patient has remained NPO since midnight. No complaints at this time, call light within reach.
[2024-01-20 07:10] LABS: Basophils % 0.5 % (0.1-2.0); Eosinophils % 0.5 % (0.1-12.0); Hematocrit 36.7 % (37.0-47.0); Hemoglobin 11.6 g/dL (12.2-16.2); Lymphocytes % 12.9 % (10-50); Mean Corpuscular HGB Conc 31.7 g/dL (31.8-35.4); Mean Corpuscular Hemoglobin 30.7 pg (27.0-31.2); Mean Corpuscular Volume 96.9 fl (81-99); Mean Platelet Volume 9.5 fl (7.4-10.4); Monocytes # 0.6 K/mm3 (0.1-1.0); Monocytes % 7.7 % (1.7-9.3); Neutrophils # 5.9 K/mm3 (1.8-7.8); Neutrophils % 78.4 % (37.0-80.0); Platelet Count 206 K/mm3 (142-424); Red Blood Count 3.79 M/mm3 (4.20-5.40); Red Cell Distribution Width 13.9 % (11.5-17.5); White Blood Count 7.5 K/mm3 (4.8-10.8)
[2024-01-20 07:13] LABS: Albumin Level 3.5 g/dl (3.5-5.0); Chloride 97 mmol/L (98-107); INR 0.96 (0.9-1.1); Prothrombin Time 10.8 seconds (10.1-12.5); Sodium 131 mmol/L (136-145)
[2024-01-20 07:16] LABS: Alanine Aminotransferase 17 U/L (12-78); Albumin/Globulin Ratio 1.2 (1.1-1.8); Alkaline Phosphatase 72 U/L (38-126); Aspartate Amino Transferase 25 U/L (14-36); Bilirubin,Total 0.8 mg/dl (0.2-1.3); Blood Urea Nitrogen 14 mg/dl (7-17); Calcium 7.9 mg/dl (8.4-10.2); Carbon Dioxide 30 mmol/L (22.0-30.0); Creatinine Clearance Estimated 40 mL/min (50-200); Estimated Glomerular Filt Rate 95 ml/min (>60); GFR (African American) 115 ML/MIN (>60); Globulin 2.9 g/dL (1.3-3.2); Glucose 115 mg/dl (74-100); Total Protein,Serum 6.4 g/dl (6.3-8.2)
[2024-01-20 08:00] LABS: Magnesium 2.2 mg/dl (1.6-2.3)
--- NOTE | 2024-01-20 08:07 | P.PNANES_ITS ---
[facility] Disclaimer: The information contained in this section may have been updated after the patient was seen, as this information can be updated by other users. Medical History Abnormal result of cardiovascular function study Thyroid goiter Paroxysmal A-fib Surgical History S/P conization of cervix H/O total hysterectomy S/P ORIF (open reduction internal fixation) fracture Social History Smoking Status: Never smoker second hand exposure: No alcohol intake: never substance use type: denies use current occupational status: retired Travel in the last 8 weeks: None household members: spouse housing: house current occupational exposures/hazards: No caffeine: No [facility] Anesthesia Checklist Patient Identification Patient Identification: Arm Band and Verbal (Name & ) Structural Data Admitted From: Inpatient Planned Operative Procedure/s: 206 Consent for Planned Operative Procedure(s) Verified: Yes Verified Documents: Surgical Consent and History and Physical NPO Status Verified Time NPO: 00:00 Chart Verification Results Verified: CBC, BMP, PT, PTT, INR, ECG and Chest Xray Additional verifications Patient : No Anesthesia Reactions: No Hx Blood Transfusions: No Blood Transfusion Reaction: No Cardiovascular Assessment Heart Sounds: S1 & S2 Pulse Rhythm: Irregular Peripheral Edema: No Airway Assessment Mallampati Score:: Class II C-Spine Mobility Assessed: Yes (FROM) TMJ Mobility Assessed: Yes Dentition: Poor Dentition (Nothing loose per pt.) Neurological Assessment Level of Consciousness: Awake, Alert, Appropriate and Follows Commands Hx Seizures: No Numbness or tingling in extremities: No Anesthesia Plan Anesthesia Risk discussed: Yes Anesthesia Plan: Verified ASA Class: III Anesthesia Type: MAC w/Spinal
[2024-01-20] MEDS: CEFAZOLIN SODIUM 1 GM in 0.9 % SODIUM CHLORIDE 50 ML IV ×3 (09:03→20:26)
[2024-01-20] MEDS: SODIUM CHLORIDE IRRIG SOLUTION 3,000 ML 25 ML IR (09:50)
--- NOTE | 2024-01-20 11:32 | P.PN_ITS ---
Subjective *Date: 01/20/24 *Time: 15:51 Interval history: Patient taken for surgery this morning. Tolerated well. Received spinal block, minimal pain on time of evaluation. Alert and oriented. No complications. Medical Exam Vital signs and Labs for Last 24 Hours: Vital Signs Temp Pulse Pulse Resp BP Pulse Ox O2 Del Method 01/20/24 06:35 Room Air 01/20/24 05:00 Room Air 01/20/24 04:00 71 01/20/24 04:00 98.2 F 77 16 152/82 H 97 Room Air 01/20/24 02:50 Room Air 01/20/24 00:57 Room Air 01/20/24 00:00 72 01/20/24 00:00 97.9 F 81 16 156/74 H 96 Room Air 01/19/24 22:50 Room Air 01/19/24 21:00 Room Air 01/19/24 20:00 82 01/19/24 20:00 Room Air 01/19/24 20:00 98.3 F 77 16 157/80 H 100 Room Air 01/19/24 19:00 Room Air 01/19/24 17:00 Room Air 01/19/24 16:00 80 01/19/24 16:00 97.7 F 75 18 169/78 H 96 Room Air 01/19/24 15:00 Room Air 01/19/24 12:59 Room Air 01/19/24 12:00 97.9 F 80 21 144/73 H 94 L Room Air 01/19/24 12:00 90 Intake and Output 01/19/24 01/20/24 01/20/24 23:59 07:59 15:59 Output Total 250 / 350 0 / 0 Balance -250 / 430 0 / 0 Output: Output, Urine Amount 250 / 350 0 / 0 Other: Number of Voids 0 Number of Unmeasured Voids 0 1 Number of Bowel Movements 1 Weight 61.235 kg Patient Weight 01/20/24 23:59 Weight 61.235 kg Laboratory Results - last 24 hr 01/20/24 06:08: WBC 7.5, RBC 3.79 L, Hgb 11.6 L, Hct 36.7 L, MCV 96.9, MCH 30.7, MCHC 31.7 L, RDW 13.9, Plt Count 206, MPV 9.5, Neut % (Auto) 78.4, Lymph % (Auto) 12.9, Carson % (Auto) 7.7, Eos % (Auto) 0.5, Baso % (Auto) 0.5, Neut # (Auto) 5.9, Lymph # (Auto) 1.0, Carson # (Auto) 0.6, Eos # (Auto) 0.0, Baso # (Auto) 0.0, PT 10.8, INR 0.96, Sodium 131 L, Potassium 4.0, Chloride 97 L, Carbon Dioxide 30, Anion Gap 8.0, BUN 14, Creatinine 0.60, Estimated Creat Clear 40, Estimated GFR 95, Est GFR ( Amer) 115, Glucose 115 H, Calcium 7.9 L, Magnesium 2.2, Total Bilirubin 0.8, AST 25, ALT 17, Alkaline Phosphatase 72, Total Protein 6.4, Albumin 3.5, Globulin 2.9, Albumin/Globulin Ratio 1.2 I & O for Labs for Last 24 Hours: Intake & Output 01/17/24 01/18/24 01/19/24 01/20/24 23:59 23:59 23:59 23:59 Intake Total 1058 / 1058 680 / 830 780 / 780 Output Total 0 / 0 350 / 350 350 / 350 0 / 0 Balance 1058 / 1058 330 / 480 430 / 430 0 / 0 Weight 62.686 kg 61.099 kg 62.5 kg 61.235 kg Constitutional: Present no acute distress, average body habitus, chronically ill appearing and cooperative Head: Present atraumatic and normocephalic ENT: Present normal exam Neck: Present normal inspection Respiratory: Present normal respiratory effort; Absent rhonchi, wheezes or crackles Cardiac: Present Reg Rate and Rhythm GI: Present soft and normal bowel sounds; Absent distention or tenderness Comment:: Postsurgical bandage over left hip. Tender. Legs equal length. Skin: Present intact; Absent erythema Neuro: Present Grossly Intact, alert, awake, oriented x 3 and moves all extremities Assessment and Plan *Assessment and plan (1) Closed subcapital fracture of left femur: Status: Acute Qualifiers: Encounter type: initial encounter Qualified Code(s): S72.012A - Unspecified intracapsular fracture of left femur, initial encounter for closed fracture Category: Medical Code(s): S72.012A - Unspecified intracapsular fracture of left femur, initial encounter for closed fracture (2) Fall: Status: Acute Qualifiers: Encounter type: initial encounter Qualified Code(s): W19.XXXA - Unspecified fall, initial encounter Category: Medical Code(s): W19.XXXA - Unspecified fall, initial encounter (3) Hypokalemia: Status: Acute Category: Medical Code(s): E87.6 - Hypokalemia (4) Paroxysmal A-fib: Status: Acute Category: Medical Code(s): I48.0 - Paroxysmal atrial fibrillation (5) Elevated BP without diagnosis of hypertension: Status: Acute Category: Medical Code(s): R03.0 - Elevated blood-pressure reading, without diagnosis of hypertension Plan 83-year-old female with a PMHx of paroxysmal atrial fibrillation on Eliquis, factor V deficiency, osteoporosis presented to the emergency department for evaluation with concern for left hip pain after a fall. Patient arrived on visible discomfort, with tenderness to palpation over left hip. All compartments soft. Neurovascularly intact distally. CT showed left subcapital neck femur fracture. case was also discussed with Orthopedics. admission requested. Admitted to medicine for further management. Taken for surgery this morning. Tolerated well. Therapy evaluating, will work on placement for skilled rehab. Problems addressed as follows: Closed subcapital fracture of left femoral: secondary to ground-level fall hypokalemia Hx of afib on chronic eliquis Elevated blood pressure without diagnosis of hypertension -Patient taken for hemiarthroplasty this morning. Discussed case with surgery, orthopedics states she did well with good tolerance. Anticoagulation held after last night's dose. Will resume oral Eliquis tomorrow morning. -Hemoglobin stable at 11.6. Kidney function and electrolytes nonactionable. Sodium 131, potassium 4.0, creatinine 0.6 with BUN of 14. Repeat CBC, CMP, magnesium ordered for the morning. - Continue Tylenol 650 mg as needed every 4 hours, morphine 4 mg as needed every 4 hours for severe pain. Monitor for toxicity. -Docusate daily for bowel regimen. -Therapy recommended skilled placement, awaiting acceptance to rehab. Cardiology consulted, patient optimized. No preop interventions necessary at this time. Continue diltiazem for rate control 60 mg twice daily and bridge with Lovenox 1 mg/kg twice daily for anticoagulation. DVT prophylaxis held today, resume Eliquis twice daily in the morning Protonix for GI bleed protection Full code Cardiac diet
--- NOTE | 2024-01-20 11:33 | EXP.OP.NOTE ---
Date of procedure: 01/20/24 Pre-op Diagnosis:: Left displaced femoral neck fracture Post-op Diagnosis:: Same Procedure performed:: Hemiarthroplasty left hip Surgeon:: Obi Lobo DO CIGARETTE STAMPER:: Blayne Carrera Anesthesia: spinal Estimated blood loss (mL): 100 Clinical Note:: Implants DePuy size 13 stem standard neck +1.5 mm 44 mm head Operative findings:: Displaced femoral neck fracture Operative note:: Patient was identified preoperatively. Left hip marked with yes my initials. Transferred to operative suite. Given spinal anesthesia. Then placed in a lateral position on the operating table with the left hip up. Left hip was then prepped and draped in normal sterile fashion. Once prepped and draped final operative timeout performed to identify proper patient procedure and extremity. Everyone involved in the case agreed. There were no counter indications to beginning. Did receive preoperative antibiotics. Marking pen was used to prasad plan incision over the lateral hip. Ioban dressing placed. Skin knife is used to incise through skin dissection was taken down to the IT band. Self-retaining retractors were placed. The IT band was then cut in line with the femur. Charnley retractor was placed this exposed the abductors of the hip. Using a standard anterior lateral modified Griffith approach with an abductor peel dissection was taken down to the capsule of the hip which was cut in line with the T. This exposed fracture hematoma which was evacuated. There was evidence of a femoral neck fracture 100% displaced. Retractors were placed a cleanup cut was made on the femoral neck. This bone was removed. And then attention was brought to the femoral head Femoral head was removed from the acetabulum the acetabulum was cleaned. It sized to a size 44 on the back table. Attention was then brought to the femur. The femur was brought into the wound by taking the leg anteriorly and placed in the anterior bag. Femoral neck elevator was placed Homans placed. The Vecast cutter was utilized for lateralization. Curved rasp was used as well after canal finder was used. Followed by small broach and then sequential broaching from size [address] up to size 13. 13 broach gave good fit and fill and was stable with rotation. Size 13 stem was opened on the back table. Irrigation of the wound performed. And a size 13 collarless stem was selected and impacted into place The +1.544 mm head was then impacted into place with the bipolar component. I 7 was cleaned again. Suction. And then the hip was reduced and placed in the acetabulum. Hip was taken through range of motion flexion extension internal and external rotation and found to be very stable. Irrigation repeated. Capsule closed with 0 Vicryl stitch. The abductor peel repaired with #5 Ethibond. The IT band was closed with a #1 strata fix running suture. Deep layers with 0 Vicryl subcutaneous with 2-0 Vicryl surgical clips in the skin for closure. Sterile dressing was placed patient waken anesthesia placed in abductor pillow taken recovery stable condition. Condition: stable Disposition: PACU Complications:: None apparent
--- NOTE | 2024-01-20 11:41 | XR_ITS ---
FINAL REPORT CLINICAL HISTORY: Status post left hip hemiarthroplasty -- ortho doc wanted low ap pelvis - approved in OR COMPARISON: 01/16/2024 FINDINGS: SINGLE VIEW PELVIS: A single view of the pelvis was obtained. There has been interval placement of left hip total joint prosthesis. Overlying skin jeniffer are noted. There is gas seen in the soft tissues. IMPRESSION: Interval left hip total joint prosthesis. Reviewed, Interpreted and Dictated by Robert Christiansen MD Transcribed by Yecenia Hinojosa Authenticated and [facility]
--- NOTE | 2024-01-20 11:43 | EXP.ANES.I ---
[facility] Anesthesia Record Part I Anesthesia Record I Intake, IV Amount: 1,500 Hydration: Adequate Estimated blood loss (mL): 100 Urine output (mL): 1,500 Blood Pressure: 123/83 SaO2: 95 Pulse Rate: 77 Airway Patency: Patent Respiratory Rate: 12 Temperature: 97.5 F Patient is:: Awake and Stable Stable to PACU at:: 11:35
[2024-01-20 11:48] LABS: Microscopic,Cath URINE MICROSCOPIC (MICROSCOPIC)
[2024-01-20 12:23] LABS: Appearance,Urine/Cath CLEAR (Clear); Bilirubin,Cath Negative (Negative); Blood, Urine/Cath Negative (Negative); Color,Urine/Cath YELLOW (Yellow); Glucose,Urine/Cath (UA) Negative (Negative); Ketones,Urine/Cath TRACE (Negative); Leukocyte Esterase,Cath Negative (Negative); Nitrate,Cath Negative (Negative); Protein,Urine/Cath Negative (Negative); Urobilinogen,Cath 0.2 EU/dl (0.2)
[2024-01-20 12:25] LABS: Bacteria,Urine/Cath TRACE /lpf; Mucus,Urine/Cath Trace /lpf; Squamous Epithelial Ur./Cath Occasional #/hpf (0-5); WBC,Urine/Cath Occasional #/hpf (0-3)
--- NOTE | 2024-01-20 13:40 | HMH.OTEV ---
OT Inpatient Evaluation Rehab OT IP Evaluation Start: 01/20/24 07:29 Freq: ONCE Status: Active Protocol: [facility] 01/20/24 13:[facility] (Rec: 01/20/24 13:40 [facility] [id number]) Rehab OT IP Assessment Subjective History Pt oriented x 2 on arrival. Pt agreeable to engage in therapy evaluation. Pt admitted on 01/16/24 due to left hip fx. History and Physical: This is a 83-year-old female with a PMHx of paroxysmal atrial fibrillation on Eliquis , factor V deficiency, osteoporosis presented to the emergency department for evaluation with concern for left hip pain after a fall. Patient reports that she was cooking dinner when she suddenly turned for something and her body turned but her hips did not, causing her to fall and go to the ground. She felt immediate pain in her left hip and was unable to bear weight on her left hip afterward. She arrives personal vehicle as family helped carry her to the car. She did not hit her head or lose consciousness. No other concerns noted at this time. patient was independent with ADLs prior to the fall. admitted for treatment. Subjective I went on a great trip. Prior to being in the hospital , pt lived at home with . Pt claims normally she is independent with all ADLs and IADLs. She does not use any type of AE during daily activities. Objective Patient Orientation Person,Birthday Right Upper Extremity Gross ROM Min Limitation <25% Left Upper Extremity Gross ROM Min Limitation <25% Bed Mobility bed mobility-scooting,bed mobility - supine/sit Assist Level Maximum x 2 (75% assist) Rehab OT IP prob,goals,plan Problems Date of Evaluation: 01/20/24 OT IP Problems Bed Mobility,Transfers,Balance ,Self care,Safety Rehab Potential Rehab Potential Good Equipment Needs Assistive Devices Rolling / Wheeled Walker Plan OT intervention Plan Bed Mobility,Transfers,Balance ,Self care,Safety,Therapeutic Exercise OT Plan Frequency Daily Duration LOS Discharge Goals Bed Mobility Ability Assistance x1 Sit to Stand Chair Transfer Ability Moderate x 1 (50% assist) Chair Transfer Ability Moderate x 1 (50% assist) Chair Transfer Technique Sit to/from Ambulatory Chair Transfer Assistive Devices Rolling Walker Feeding Ability Assist with Tray Set Up Lower Body Dressing Ability Moderate Assistance Upper Body Dressing Ability Minimal Assistance Bathing Ability Moderate Assistance Performing Toilet Hygiene Ability Moderate Assistance Overall Commode/Toilet Transfer Ability Moderate Assistance Commode/Toilet Transfer Technique Sit to/from Ambulatory Commode/Toilet Transfer Assistive Grab Bars Devices Oral Care Assist Minimal Assistance Decrease in Endurance Yes Discharge Plan OT Discharge Plan Pt will continue to be seen for OT services while at [facility]. Pt would benefit most from short term rehab at SNF following hospital discharge. Continued skilled therapy is important in order for patient to improve strength, safety, endurance, ADL independence, and functional transfers to reach PLOF. Eval Complexity Eval Charge Codes 93061 - Moderate Complexity PHYSICIAN CERTIFICATION: I certify the specified therapy services for Karolyn Aviles are required, authorized, and reviewed every 30 days.
[2024-01-20] MEDS: HYDROCODONE/APAP 5/325 MG TABLET 2 TAB PO (14:59)
[2024-01-20] MEDS: dilTIAZem 60MG TABLET 60 MG PO ×2 (15:04→20:25)
--- NOTE | 2024-01-20 15:35 | [facility]H.PTEV ---
Physical Therapy Evaluation Rehab PT IP Evaluation Start: 01/20/24 07:29 Freq: ONCE Status: Active Protocol: Document 01/20/24 07:29 MICKY (Rec: 01/20/24 13:54 PHOAILYN [id number]) Subjective/History History History Patient Karolyn Aviles is an 83 yof who was admitted to [facility] on 01/16/24 for a Left hip facture secondary to a fall that occurred. Report from ED stated that she was cooking dinner when she suddenly turned for something and her body turned but her hips did not, causing her to fall and go to the ground. She felt immediate pain in her left hip and was unable to bear weight on her left hip afterward. Patient underwent post left hip hemiarthroplasty on / Patient lives at home with her , her daughter and grand-daughter are near by who also help out. Patient has 3 steps to enter in her home along with steps inside, patient does not currently use an AD for ambulation. Subjective Subjective Patient stated she has been feeling loopy and still has no feeling in both of her legs, she mentioned that she is unable to move her legs on her own. Patient stated she was not having pain currently at this time due to the medication given to her post sx. Patient's daughter and grand- daughter were visiting during the time rehab team began treatment, daughter stated that her mom still was out of it since surgery and that she has had to remind her mom that she is not in [facility]. New diagnosis of cancer in past 12 No months? Rehab PT IP Eval Objective Appearance Patient Behavior Appropriate,Cooperative, Talkative Patient Orientation Person,Name,Age,Birthday Difficulty following instructions mild Speech Pattern Clear,Delayed,Rambling Ambulation Patient Able to Ambulate No Balance Ability to Arise Unable Sitting Balance Leans or slides in chair Transfers Bed Transfer Ability Total/Dependent (100%) Rehab PT IP prob,goals,plan Problems Date of Evaluation: 01/20/24 PT IP Problems Bed Mobility,Transfers,Balance Rehab Potential Rehab Potential Good Equipment Needs Assistive Devices Rolling / Wheeled Walker Plan PT Intervention Plan Bed Mobility,Transfers,Balance PT Plan Frequency Daily Duration LOS Discharge Goals Bed Transfer Ability Minimal x 1 (25% assist) Sit to Stand Chair Transfer Ability Minimal x 1 (25% assist) Ambulation Assistive Device Rolling Walker Ambulation Distance (feet) 10 Discharge Plan PT Discharge Plan Patient is appropriate at this time for skilled PT to address LE weakness and gait cycle with the use of an assistive device (rolling walker). It is recommended that once patient is medically stable to be placed at [facility] to continue PT and address her weakness and functional mobility. Eval Complexity Eval Charge Codes 13114 - High Complexity PHYSICIAN CERTIFICATION: I certify the specified therapy services for Karolyn Aviles are required, authorized, and reviewed every 30 days.
[2024-01-20] MEDS: ONDANSETRON 4MG/2ML VIAL 4 MG IV (17:52)
[2024-01-20] MEDS: PANTOPRAZOLE 40MG TABLET 40 MG PO (20:25)
[2024-01-20] MEDS: SODIUM CHLORIDE 0.9% 25ML BAG 25 ML IV (22:48)
[2024-01-20] MEDS: PROMETHAZINE HCL 25MG/ML 1ML VIAL 12.5 MG IV (22:48)
[2024-01-21] VITALS (8 sets, daily range): BP systolic 127–161; BP diastolic 52–88; PULSE 78–102; RESP 16–20; TEMP 36.5–37.6; O2SAT 92–96; BMI 26.5
[2024-01-21 06:31] LABS: Basophils % 0.2 % (0.1-2.0); Eosinophils % 0.1 % (0.1-12.0); Hematocrit 33.3 % (37.0-47.0); Hemoglobin 10.7 g/dL (12.2-16.2); Lymphocytes % 9.8 % (10-50); Mean Platelet Volume 9.8 fl (7.4-10.4); Monocytes # 0.8 K/mm3 (0.1-1.0); Monocytes % 8.2 % (1.7-9.3); Neutrophils # 8.3 K/mm3 (1.8-7.8); Neutrophils % 81.7 % (37.0-80.0); Platelet Count 192 K/mm3 (142-424); Red Blood Count 3.44 M/mm3 (4.20-5.40); Red Cell Distribution Width 13.6 % (11.5-17.5); White Blood Count 10.2 K/mm3 (4.8-10.8)
[2024-01-21 06:32] LABS: Albumin Level 2.9 g/dl (3.5-5.0); Chloride 97 mmol/L (98-107); Potassium 3.8 mmoL/L (3.5-5.1); Sodium 129 mmol/L (136-145)
[2024-01-21 06:35] LABS: Alanine Aminotransferase 24 U/L (12-78); Albumin/Globulin Ratio 1.2 (1.1-1.8); Alkaline Phosphatase 67 U/L (38-126); Anion Gap 5.8 mEq/L (5-15); Aspartate Amino Transferase 43 U/L (14-36); Bilirubin,Total 0.8 mg/dl (0.2-1.3); Blood Urea Nitrogen 11 mg/dl (7-17); Carbon Dioxide 30 mmol/L (22.0-30.0); Creatinine Clearance Estimated 40 mL/min (50-200); Estimated Glomerular Filt Rate 117 ml/min (>60); GFR (African American) 142 ML/MIN (>60); Globulin 2.5 g/dL (1.3-3.2); Total Protein,Serum 5.4 g/dl (6.3-8.2)
[2024-01-21 06:36] LABS: Calcium 7.5 mg/dl (8.4-10.2); Glucose 119 mg/dl (74-100)
--- NOTE | 2024-01-21 06:36 | PC.NURSE ---
Pt able to answer all questions appropriately at beginning of shift but did become confused during night, attempting to pull at lines and tubes. Pt easily reoriented. Pt has c/o pain to left hip 1x and nausea 1x, medicated per AUG. Lung sounds clear. Pt encouraged to use incentive spirometer during rounds, best result 750cc. Pt was also encouraged to up her oral intake. Pt ate applesauce, crackers, and drank an ensure before bed last night. DSG to left hip CDI, Immobilzer in place. Shelton in place draining clear bright yellow urine. SCDS to right leg. Call light within reach.
[2024-01-21 06:49] LABS: Magnesium 1.9 mg/dl (1.6-2.3)
[2024-01-21] MEDS: APIXABAN 5MG TABLET 2.5 MG PO ×2 (09:54→20:28)
[2024-01-21] MEDS: dilTIAZem 60MG TABLET 60 MG PO ×2 (09:54→20:20)
[2024-01-21] MEDS: DOCUSATE SODIUM 100 MG CAPSULE PO (09:54)
[2024-01-21] MEDS: HYDROCODONE/APAP 5/325 MG TABLET 2 TAB PO ×2 (10:48→20:25)
--- NOTE | 2024-01-21 12:01 | P.DS_ITS ---
General Admission date:: 01/16/24 HPI HPI HPI: This is a 83-year-old female with a PMHx of paroxysmal atrial fibrillation on Eliquis, factor V deficiency, osteoporosis presented to the emergency department for evaluation with concern for left hip pain after a fall. Patient reports that she was cooking dinner when she suddenly turned for something and her body turned but her hips did not, causing her to fall and go to the ground. She felt immediate pain in her left hip and was unable to bear weight on her left hip afterward. She arrives personal vehicle as family helped carry her to the car. She did not hit her head or lose consciousness. No other concerns noted at this time. patient was independent with ADLs prior to the fall. admitted for treatment. Ortho consulted for treatment options. Hospital Course Hospital Course Hospital Course: Patient presented to the emergency room after fall and diagnosed with left femur fracture. Patient underwent surgical repair of left hip, and treated postoperatively with as needed pain meds. Patient evaluated by PT/OT during hospitalization, and deemed appropriate for outpatient rehabilitation enrollment. Patient discharged to short-term rehab at time of hospital disposition, with instructions to follow-up primary care physician orthopedic surgeon outpatient basis. Exam Data for Last 24 hours Vital signs and Labs for Last 24 Hours: Temp Pulse Resp BP Pulse Ox O2 Del Method O2 Flow Rate 98.2 F 82 20 127/56 L 94 L Room Air 2 01/21/24 11:59 01/21/24 11:59 01/21/24 11:59 01/21/24 11:59 01/21/24 11:59 01/21/24 11:59 01/18/24 15:00 Laboratory Results - last 24 hr 01/20/24 : Urine Color Yellow, Urine Appearance Clear, Urine pH 6.0, Ur Specific [place] 1.020, Urine Protein Negative, Urine Glucose (UA) Negative, Urine Ketones Trace, Urine Blood Negative, Urine Nitrate Negative, Urine Bilirubin Negative, Urine Urobilinogen 0.2, Ur Leukocyte Esterase Negative, Urine RBC None, Urine WBC Occasional, Ur Squamous Epith Cells Occasional, Urine Bacteria Trace 01/21/24 05:50: WBC 10.2 D, RBC 3.44 L, Hgb 10.7 L, Hct 33.3 L, MCV 97.0, MCH 31.0, MCHC 32.0, RDW 13.6, Plt Count 192, MPV 9.8, Neut % (Auto) 81.7 H, Lymph % (Auto) 9.8 L, [place] % (Auto) 8.2, Eos % (Auto) 0.1, Baso % (Auto) 0.2, Neut # (Auto) 8.3 H, Lymph # (Auto) 1.0, [place] # (Auto) 0.8, Eos # (Auto) 0.0, Baso # (Auto) 0.0, Sodium 129 L, Potassium 3.8, Chloride 97 L, Carbon Dioxide 30, Anion Gap 5.8, BUN 11, Creatinine 0.50 L, Estimated Creat Clear 40, Estimated GFR 117, Est GFR ( Amer) 142 D, Glucose 119 H, Calcium 7.5 L, Magnesium 1.9 D, Total Bilirubin 0.8, AST 43 H D, ALT 24 D, Alkaline Phosphatase 67, Total Protein 5.4 L, Albumin 2.9 L D, Globulin 2.5, Albumin/Globulin Ratio 1.2 I & O for Last 24 hours: Intake & Output 01/18/24 01/19/24 01/20/24 01/21/24 23:59 23:59 23:59 23:59 Intake Total 680 / 830 780 / 780 1500 / 1550 170 / 170 Output Total 350 / 350 350 / 350 800 / 800 550 / 550 Balance 330 / 480 430 / 430 700 / 750 -380 / -380 Weight 61.099 kg 62.5 kg 61.235 kg 61.235 kg Constitutional Constitutional: no acute distress and thin *Routine HEENT Exam Head: Present normocephalic Eye: Present EOMI ENT: Present mucous membranes moist *Routine Neck Exam Neck: Present supple and full ROM *Routine Respiratory Exam Respiratory: Present normal respiratory effort *Routine Cardiovascular Exam Cardiovascular: Present RRR, Normal S1 and Normal S2 *Routine Abdominal Exam Abdominal: Present soft and normoactive bowel sounds *Routine Extremities Exam Extremities: Present full ROM and pulses intact *Routine Skin Exam Skin: Present intact *Routine Neurological Exam Neurological: Present alert and oriented X3 Results Data Completed and Pending Labs on day of discharge: Labs from last 24 hours 01/21/24 01/20/24 05:50 Unknown WBC 10.2 D RBC 3.44 L Hgb 10.7 L Hct 33.3 L MCV 97.0 MCH 31.0 MCHC 32.0 RDW 13.6 Plt Count 192 MPV 9.8 Neut % (Auto) 81.7 H Lymph % (Auto) 9.8 L [place] % (Auto) 8.2 Eos % (Auto) 0.1 Baso % (Auto) 0.2 Neut # (Auto) 8.3 H Lymph # (Auto) 1.0 [place] # (Auto) 0.8 Eos # (Auto) 0.0 Baso # (Auto) 0.0 Sodium 129 L Potassium 3.8 Chloride 97 L Carbon Dioxide 30 Anion Gap 5.8 BUN 11 Creatinine 0.50 L Estimated Creat Clear 40 Estimated GFR 117 Est GFR ( Amer) 142 D Glucose 119 H Calcium 7.5 L Magnesium 1.9 D Total Bilirubin 0.8 AST 43 H D ALT 24 D Alkaline Phosphatase 67 Total Protein 5.4 L Albumin 2.9 L D Globulin 2.5 Albumin/Globulin Ratio 1.2 Urine Color Yellow Urine Appearance Clear Urine pH 6.0 Ur Specific [place] 1.020 Urine Protein Negative Urine Glucose (UA) Negative Urine Ketones Trace Urine Blood Negative Urine Nitrate Negative Urine Bilirubin Negative Urine Urobilinogen 0.2 Ur Leukocyte Esterase Negative Urine RBC None Urine WBC Occasional Ur Squamous Epith Cells Occasional Urine Bacteria Trace Impressions Impressions: Ordering Physician: Obi Lobo DO Date of Service: 01/20/24 Procedure(s): XR pelvis 1-2V Accession Number(s): [id number] cc: Bettie Holloway APRN; Robert Christiansen MD~ FINAL REPORT CLINICAL HISTORY: Status post left hip hemiarthroplasty -- ortho doc wanted low ap pelvis - approved in OR COMPARISON: 01/16/2024 FINDINGS: SINGLE VIEW PELVIS: A single view of the pelvis was obtained. There has been interval placement of left hip total joint prosthesis. Overlying skin jeniffer are noted. There is gas seen in the soft tissues. IMPRESSION: Interval left hip total joint prosthesis. Ordering Physician: Shun Joy APRN Date of Service: 01/17/24 Procedure(s): CA echo doppler complete Conclusion Normal LV systolic function. Marked increase in LV wall thickness (IVSd 1.6 cm). No evidence of LVOT obstruction at rest. Moderate RV dilation with mild reduction in RV function. Mild MR. Moderate TR. Elevated RVSP 35-40 mmHg. In the setting of increased LV wall thickness and biatrial dilation, further outpatient evaluation on non-urgent basis with cardiac MRI (amyoidosis protocol) + PYP nuclear scan + amyloidosis lab work-up is suggested. Electronically signed by : Nikia Mathias MD 01/19/2024 09:17:03 Ordering Physician: Pretty Dailey DO Date of Service: 01/16/24 Procedure(s): CT bony pelvis IMPRESSION: 1. Oblique subcapital fracture of the left femoral neck with proximal migration of the distal fragment. No additional acute bony injury. 2. Subjective bony demineralization could be quantified with DEXA. 3. Diverticulosis without evidence of acute diverticulitis. 01/16/2024 left knee x-ray: No acute fracture. Moderate tricompartmental osteoarthritis. 01/16/2024 left hip x-ray: Oblique subcapital fracture of the left femoral neck with proximal migration of the distal fragment. No additional acute bony injury. 01/16/2024 CT brain: No acute abnormalities 01/16/2024 x-ray left femur IMPRESSION: Subcapital femoral neck fracture with proximal migration of the distal fragment. Remainder of the femur is intact. 01/16/2024 CT cervical spine IMPRESSION: 1. No acute cervical fracture or traumatic subluxation. 2. Straightened lordosis with broad-based dextrocurvature from position or muscle spasm. 3. Moderate multilevel degenerative disc disease. 4. Enlarged multinodular thyroid gland. Recommend follow-up nonemergent ultrasound. 5. Additional chronic findings. DS: Diagnosis Discharge Diagnosis (1) Closed subcapital fracture of left femur: Status: Acute Code(s): S72.012A - Unspecified intracapsular fracture of left femur, initial encounter for closed fracture Qualifiers: Encounter type: initial encounter Qualified Code(s): S72.012A - Unspecified intracapsular fracture of left femur, initial encounter for closed fracture (2) Fall: Status: Acute Code(s): W19.XXXA - Unspecified fall, initial encounter Qualifiers: Encounter type: initial encounter Qualified Code(s): W19.XXXA - Unspecified fall, initial encounter (3) Hypokalemia: Status: Acute Code(s): E87.6 - Hypokalemia (4) Paroxysmal A-fib: Status: Acute Code(s): I48.0 - Paroxysmal atrial fibrillation (5) Elevated BP without diagnosis of hypertension: Status: Acute Code(s): R03.0 - Elevated blood-pressure reading, without diagnosis of hypertension Meds Home Medications and Allergies Home Medications ?Medication ?Instructions ?Recorded ?Confirmed ?Type cranberry fruit concentrate 250 mg 250 mg PO TID #90 tabs 02/05/23 01/16/24 Rx chewable tablet (Azo Cranberry) flaxseed oil 1,000 mg capsule 1,000 mg PO DAILY 03/29/23 01/16/24 History estradiol 0.01% (0.1 mg/gram) 1 appful vaginal MOWEFR 06/19/23 01/17/24 History vaginal cream fluticasone propionate 50 2 spray intranasal DAILY #16 grams 08/14/23 01/16/24 Rx mcg/actuation nasal spray,suspension (Flonase Allergy Relief) apixaban 2.5 mg tablet 2.5 mg PO BID 90 days #180 tabs 09/11/23 01/16/24 Rx diltiazem HCl 60 mg 60 mg PO BID 01/16/24 01/17/24 History capsule,extended release 12 hr New Prescriptions to Start Prescriptions: Allergies Allergy/AdvReac Type Severity Reaction Status Date / Time diazepam [From Valium] Allergy Verified 01/03/24 13:28 Discharge Plan Disposition Patient Disposition: Hospice - Home Condition: Fair Discharge Order Discharge Orders: Discharge Order (Routine); Ordered 01/21/24 Ordered By: Lanre Sharp Follow up Plan Follow up with: Bettie Holloway APRN [Primary Care Provider] - 2 weeks Prescriptions/Medication Reconciliation: No Action Azo Cranberry 250 mg tablet,chewable 250 mg PO TID Qty: 90 0RF estradiol 0.01 % (0.1 mg/gram) cream 1 appful vaginal MOWEFR Rx Instructions: 1 appful vaginally saturday, saturday, saturday; flaxseed oil 1,000 mg capsule 1,000 mg PO DAILY Rx Instructions: administer with a meal fluticasone propionate [Flonase Allergy Relief] 50 mcg/actuation spray,suspension 2 spray intranasal DAILY Qty: 16 2RF apixaban 2.5 mg tablet 2.5 mg PO BID 90 Days Qty: 180 1RF diltiazem HCl 60 mg capsule,extended release 12 hr 60 mg PO BID Problem Reconciliation Problems Reviewed?: Yes Patient Discharge Instructions ACTIVITY: Continue current activity DIET: continue same diet Patient Instructions: DI for Hip Fracture, How to Prevent Falls, DI for Surgical Site Infection, Catheter-Associated Urinary Tract Infection Print Language: Yi Providers Primary Care Provider: Bettie Holloway Admit Provider: Remy Segal Attending Provider: Remy Segal
--- NOTE | 2024-01-21 17:27 | EXP.ACUTE.PN ---
Subjective *Date: 01/21/24 *Time: 17:27 Interval history: Patient originally scheduled to be discharged to [facility] today, but unable to void so discharge canceled in afternoon. Denies fevers, chills, chest pain overnight. Weak and ready to start short-term rehab. Medical Exam Vital signs and Labs for Last 24 Hours: Vital Signs Temp Pulse Pulse Resp BP Pulse Ox O2 Del Method 01/21/24 16:00 97.7 F 86 18 144/59 H 92 L Room Air 01/21/24 12:00 80 01/21/24 11:59 98.2 F 82 20 127/56 L 94 L Room Air 01/21/24 08:00 98.4 F 78 16 150/52 H 95 Room Air 01/21/24 08:00 90 01/21/24 06:34 Room Air 01/21/24 05:00 Room Air 01/21/24 04:05 80 01/21/24 04:00 98.2 F 90 16 151/69 H 95 Room Air 01/21/24 02:55 Room Air 01/21/24 00:45 Room Air 01/21/24 00:00 99.7 F H 102 H 16 158/88 H 93 L Room Air 01/21/24 00:00 93 H 01/20/24 22:50 Room Air 01/20/24 20:40 Room Air 01/20/24 20:00 97.7 F 62 16 148/62 H 95 Room Air 01/20/24 20:00 91 H 01/20/24 19:58 95 Room Air 01/20/24 19:00 93 H 16 166/77 H 97 Room Air 01/20/24 18:00 90 18 177/79 H 95 Room Air Intake and Output 01/21/24 01/21/24 01/21/24 07:59 15:59 23:59 Intake Total 50 / 770 720 / 770 Output Total 550 / 550 Balance -500 / 220 720 / 220 Intake: Intake, Oral Amount 720 / 720 Intake, Total IV Amount 50 / 50 Cefazolin Sodium 1 gm In 0.9 % 50 / 50 Sodium Chloride 50 ml @ 100 mls /hr IV Q6H [facility] Rx#:[id number] Output: Output, Urine Amount 550 / 550 Other: Number of Bowel Movements 1 Weight 61.235 kg Patient Weight 01/21/24 23:59 Weight 61.235 kg Laboratory Results - last 24 hr 01/21/24 05:50: WBC 10.2 D, RBC 3.44 L, Hgb 10.7 L, Hct 33.3 L, MCV 97.0, MCH 31.0, MCHC 32.0, RDW 13.6, Plt Count 192, MPV 9.8, Neut % (Auto) 81.7 H, Lymph % (Auto) 9.8 L, [place] % (Auto) 8.2, Eos % (Auto) 0.1, Baso % (Auto) 0.2, Neut # (Auto) 8.3 H, Lymph # (Auto) 1.0, [place] # (Auto) 0.8, Eos # (Auto) 0.0, Baso # (Auto) 0.0, Sodium 129 L, Potassium 3.8, Chloride 97 L, Carbon Dioxide 30, Anion Gap 5.8, BUN 11, Creatinine 0.50 L, Estimated Creat Clear 40, Estimated GFR 117, Est GFR ( Amer) 142 D, Glucose 119 H, Calcium 7.5 L, Magnesium 1.9 D, Total Bilirubin 0.8, AST 43 H D, ALT 24 D, Alkaline Phosphatase 67, Total Protein 5.4 L, Albumin 2.9 L D, Globulin 2.5, Albumin/Globulin Ratio 1.2 I & O for Labs for Last 24 Hours: Intake & Output 01/18/24 01/19/24 01/20/24 01/21/24 23:59 23:59 23:59 23:59 Intake Total 680 / 830 780 / 780 1500 / 1550 770 / 770 Output Total 350 / 350 350 / 350 800 / 800 550 / 550 Balance 330 / 480 430 / 430 700 / 750 220 / 220 Weight 61.099 kg 62.5 kg 61.235 kg 61.235 kg Head: Present normocephalic ENT: Present normal exam Neck: Present normal inspection Respiratory: Present CTA bilaterally Cardiac: Present Reg Rate and Rhythm and Regular Rate GI: Present soft and normal bowel sounds Rectal (female): Present deferred (female): Present deferred Extremities: Present normal inspection Comment:: Left hip dressing C/C/I without signs of bleeding or purulent drainage. Skin: Present intact and dry Assessment and Plan *Assessment and plan (1) Displaced fracture of left femoral neck: Status: Acute Category: Medical Code(s): S72.002A - Fracture of unspecified part of neck of left femur, initial encounter for closed fracture (2) HTN (hypertension): Status: Acute Qualifiers: Hypertension type: primary hypertension Qualified Code(s): I10 - Essential (primary) hypertension Category: Medical Code(s): I10 - Essential (primary) hypertension Plan Status post left hip repair: ? Routine perioperative care, as needed pain meds, PT/OT. As needed antiemetics. Hypertension: Continue home management Atrial fibrillation: Resume home apixaban today. Generalized weakness: Scheduled to attend short-term rehab at time of hospital disposition PPx: Lovenox subcu during hospitalization and transition back to apixaban at time of hospital discharge. CODE STATUS full FEN: Regular diet Disposition: Discharge canceled for today since patient unable to void after removal of [place] catheter. Hopefully patient can be discharged to [facility] tomorrow if able to void adequately overnight.
--- NOTE | 2024-01-21 19:25 | PC.NURSE ---
Tried to call report to [facility] after bladder scanning pt at 1615 and having a bladder scan amount of 156. [facility] would not take report r/t patient not having urinated after removing FC. D/c cancelled r/t patient not urinating prior to 5 pm.
--- NOTE | 2024-01-21 19:30 | PC.NURSE ---
note per LCrump, bladder scan performed on pt at this time, 208 mL scanned, pt up to BSC in attempt to urinate, pt did not urinate at this time, pt states that she has been drinking, this nurse encouraged pt to increase intake and offered pt fluids.
[2024-01-21] MEDS: PANTOPRAZOLE 40MG TABLET 40 MG PO (20:19)
--- NOTE | 2024-01-21 23:30 | PC.NURSE ---
note per LCrump, pt up to BSC with no urination
[2024-01-22] VITALS: BP 154/77; PULSE 82; RESP 18; TEMP 37.1; O2SAT 93
--- NOTE | 2024-01-22 00:25 | PC.NURSE ---
note per LCrump, bladder scan performed and resulted with 370 mL, Susan EMMANUEL, notified @ 0028, given orders to in and out cath, pt tolerated cath well with 300 mL output, urine in a dark ciara in color with a slight odor
[2024-01-22 04:00] VITALS: BP 125/50; PULSE 89; RESP 16; TEMP 37.2; O2SAT 96; BMI 26.4
--- NOTE | 2024-01-22 04:00 | PC.NURSE ---
note per LCrump, pt remains alert and oriented X 4, and is tolerating RA well at this time, pt has had difficulty urinating since her cath was removed on 01/20, (see previous note), pt has no other complaints, denies pain and needs and has had no other acute changes to note
[2024-01-22 08:00] VITALS: BP 120/48; PULSE 90; RESP 18; TEMP 37.3; O2SAT 94
[2024-01-22] MEDS: dilTIAZem 60MG TABLET 60 MG PO (09:36)
[2024-01-22] MEDS: DOCUSATE SODIUM 100 MG CAPSULE PO (09:36)
[2024-01-22] MEDS: APIXABAN 5MG TABLET 2.5 MG PO (09:36)
[2024-01-22] MEDS: 0.9 % SODIUM CHLORIDE 1000ML 1,000 ML 100 ML IV (09:50)
--- NOTE | 2024-01-22 10:32 | ECG_ITS ---
APPROVED REPORT Exam: Resting ECG HR:119 bpm ECG Measurements Heart Rate 119 AXES QRSd 134 QRS -57 QT 276 T 86 QTc 347 Conclusion ATRIAL FIBRILLATION WITH RAPID VENTRICULAR RESPONSE RIGHT BUNDLE BRANCH BLOCK [120+ ms QRS DURATION, UPRIGHT V1, 40+ ms S IN I/aVL/V4/V5/V6] LEFT ANTERIOR FASCICULAR BLOCK [QRS AXIS <= -45, QR IN I, RS IN II] ABNORMAL ECG UNCONFIRMED REPORT Electronically signed by : Rahat Sloan MD 01/22/2024 14:05:01
--- NOTE | 2024-01-22 10:41 | PC.NURSE ---
AT APPROX. 0930 MD SANDERS NOTIFIED THAT PT'S HEART RATE WAS IN THE 120-130'S. STATED THAT PT MAY BE DEHYDRATED AND STATED TO GIVE A 250 ML BOLUS THEN RESUME 100 ML/HR. ORDERS CARRIED OUT.
[2024-01-22] MEDS: dilTIAZem 25MG/5ML VIAL 10 MG IV (11:12)
[2024-01-22 11:53] VITALS: BP 122/77; PULSE 100; RESP 16; TEMP 37; O2SAT 94
[2024-01-22 12:00] VITALS: PULSE 100
[2024-01-22] MEDS: ONDANSETRON 4MG/2ML VIAL 4 MG IV (13:15)
--- NOTE | 2024-01-22 14:17 | P.DS_ITS ---
General Admission date:: 01/16/24 Discharge date: 01/22/24 HPI HPI HPI: This is a 83-year-old female with a PMHx of paroxysmal atrial fibrillation on Eliquis, factor V deficiency, osteoporosis presented to the emergency department for evaluation with concern for left hip pain after a fall. Patient reports that she was cooking dinner when she suddenly turned for something and her body turned but her hips did not, causing her to fall and go to the ground. She felt immediate pain in her left hip and was unable to bear weight on her left hip afterward. She arrives personal vehicle as family helped carry her to the car. She did not hit her head or lose consciousness. No other concerns noted at this time. patient was independent with ADLs prior to the fall. admitted for treatment. Ortho consulted for treatment options. Hospital Course Hospital Course Hospital Course: Patient presented to the emergency room after fall and diagnosed with left femur fracture. Patient underwent surgical repair of left hip, and treated postoperatively with as needed pain meds. Patient evaluated by PT/OT during hospitalization, and deemed appropriate for outpatient rehabilitation enrollment. Patient discharged to short-term rehab at time of hospital disposition, with instructions to follow-up primary care physician orthopedic surgeon outpatient basis. 01/20 patient developed urinary retention issues. Patient required Shelton straight catheterization procedure 01/21/2024 overnight. Patient continued to suffer from urinary retention issues 01/21, so discharged to nursing facility with Shelton catheter in place. Patient will follow-up with Dr. Nunez, urologist as outpatient for further Shelton catheter management. Patient also developed tachycardia during 01/22/2024 hospitalization. Patient has known atrial fibrillation, and stat EKG showed A-fib with RVR heart rate 119. Patient given Cardizem 10 mg IV push, with patient's oral Cardizem medication increased. Patient then discharged to [facility] facility with instructions to follow-up with Dr. Ward, patient's data sciences director as outpatient for further cardiology care. Exam Data for Last 24 hours Vital signs and Labs for Last 24 Hours: Temp Pulse Resp BP Pulse Ox O2 Del Method O2 Flow Rate 98.6 F 100 H 16 122/77 94 L Room Air 2 01/22/24 11:53 01/22/24 12:00 01/22/24 11:53 01/22/24 11:53 01/22/24 11:53 01/22/24 13:00 01/18/24 15:00 I & O for Last 24 hours: Intake & Output 01/19/24 01/20/24 01/21/24 01/22/24 23:59 23:59 23:59 23:59 Intake Total 780 / 780 1500 / 1550 1010 / 1010 610 / 610 Output Total 350 / 350 800 / 800 550 / 850 300 / 300 Balance 430 / 430 700 / 750 460 / 160 310 / 310 Weight 62.5 kg 61.235 kg 61.235 kg 61.19 kg Constitutional Constitutional: no acute distress *Routine HEENT Exam Head: Present normocephalic Eye: Present EOMI ENT: Present mucous membranes moist *Routine Neck Exam Neck: Present supple and full ROM *Routine Respiratory Exam Respiratory: Present diminished air movement and normal respiratory effort *Routine Cardiovascular Exam Cardiovascular: Present RRR, Normal S1 and Normal S2 *Routine Abdominal Exam Abdominal: Present soft and normoactive bowel sounds *Routine Extremities Exam Extremities: Present normal capillary refill Comments: Patient's left hip dressing C/D/I at time of hospital discharge. *Routine Skin Exam Skin: Present intact and dry *Routine Neurological Exam Neurological: Present alert and oriented X3 Results Impressions Impressions: Ordering Physician: Obi Lobo DO Date of Service: 01/20/24 Procedure(s): XR pelvis 1-2V Accession Number(s): [id number] cc: Bettie Holloway APRN; Robert Christiansen MD~ FINAL REPORT CLINICAL HISTORY: Status post left hip hemiarthroplasty -- ortho doc wanted low ap pelvis - approved in OR COMPARISON: 01/16/2024 FINDINGS: SINGLE VIEW PELVIS: A single view of the pelvis was obtained. There has been interval placement of left hip total joint prosthesis. Overlying skin jeniffer are noted. There is gas seen in the soft tissues. IMPRESSION: Interval left hip total joint prosthesis. Ordering Physician: Shun Joy APRN Date of Service: 01/17/24 Procedure(s): CA echo doppler complete Conclusion Normal LV systolic function. Marked increase in LV wall thickness (IVSd 1.6 cm). No evidence of LVOT obstruction at rest. Moderate RV dilation with mild reduction in RV function. Mild MR. Moderate TR. Elevated RVSP 35-40 mmHg. In the setting of increased LV wall thickness and biatrial dilation, further outpatient evaluation on non-urgent basis with cardiac MRI (amyoidosis protocol) + PYP nuclear scan + amyloidosis lab work-up is suggested. Electronically signed by : Nikia Mathias MD 01/19/2024 09:17:03 Ordering Physician: Pretty Dailey DO Date of Service: 01/16/24 Procedure(s): CT bony pelvis IMPRESSION: 1. Oblique subcapital fracture of the left femoral neck with proximal migration of the distal fragment. No additional acute bony injury. 2. Subjective bony demineralization could be quantified with DEXA. 3. Diverticulosis without evidence of acute diverticulitis. 01/16/2024 left knee x-ray: No acute fracture. Moderate tricompartmental osteoarthritis. 01/16/2024 left hip x-ray: Oblique subcapital fracture of the left femoral neck with proximal migration of the distal fragment. No additional acute bony injury. 01/16/2024 CT brain: No acute abnormalities 01/16/2024 x-ray left femur IMPRESSION: Subcapital femoral neck fracture with proximal migration of the distal fragment. Remainder of the femur is intact. 01/16/2024 CT cervical spine IMPRESSION: 1. No acute cervical fracture or traumatic subluxation. 2. Straightened lordosis with broad-based dextrocurvature from position or muscle spasm. 3. Moderate multilevel degenerative disc disease. 4. Enlarged multinodular thyroid gland. Recommend follow-up nonemergent ultrasound. 5. Additional chronic findings. DS: Diagnosis Discharge Diagnosis (1) Displaced fracture of left femoral neck: Status: Acute Code(s): S72.002A - Fracture of unspecified part of neck of left femur, initial encounter for closed fracture (2) HTN (hypertension): Status: Acute Code(s): I10 - Essential (primary) hypertension Qualifiers: Hypertension type: primary hypertension Qualified Code(s): I10 - Essential (primary) hypertension Meds Home Medications and Allergies Home Medications ?Medication ?Instructions ?Recorded ?Confirmed ?Type cranberry fruit concentrate 250 mg 250 mg PO TID #90 tabs 02/05/23 01/16/24 Rx chewable tablet (Azo Cranberry) flaxseed oil 1,000 mg capsule 1,000 mg PO DAILY 03/29/23 01/16/24 History estradiol 0.01% (0.1 mg/gram) 1 appful vaginal MOWEFR 06/19/23 01/17/24 History vaginal cream fluticasone propionate 50 2 spray intranasal DAILY #16 grams 08/14/23 01/16/24 Rx mcg/actuation nasal spray,suspension (Flonase Allergy Relief) apixaban 2.5 mg tablet 2.5 mg PO BID 90 days #180 tabs 09/11/23 01/16/24 Rx docusate sodium 100 mg capsule 100 mg PO DAILY #30 caps 01/21/24 Rx hydrocodone 5 mg-acetaminophen 325 2 tab PO Q4HP PRN Moderate To 01/21/24 Rx mg tablet Severe Pain (4-10) #10 tabs diltiazem HCl 180 mg 180 mg PO DAILY #90 caps 01/22/24 Rx capsule,extended release 24 hr (Cardizem CD) New Prescriptions to Start Prescriptions: hydrocodone-acetaminophen [facility] diltiazem HCl [Cardizem CD] [facility] docusate sodium [facility] Allergies Allergy/AdvReac Type Severity Reaction Status Date / Time diazepam [From Valium] Allergy Verified 01/03/24 13:28 Discharge Plan Disposition Patient Disposition: er SNF Condition: Fair Discharge Order Discharge Orders: Discharge Order (Routine); Ordered 01/22/24 Ordered By: Lanre Sharp Follow up Plan Follow up with: Bettie Holloway APRN [Primary Care Provider] - 2 weeks (A Provider will follow up in the facility. ) Hitesh Ward MD [Staff Physician] - 1 week (Atrial fibrillation with RVR treated by Dr. Sharp with increasing Cardizem administration. Please follow-up as outpatient. Thank you) Stu Nunez MD [Referring] - 2 weeks (Urinary retention noted during [facility]. Please follow and advise. Thank you) Prescriptions/Medication Reconciliation: New docusate sodium 100 mg Capsule 100 mg PO DAILY Qty: 30 0RF hydrocodone-acetaminophen 5-325 mg Tablet 2 tab PO Q4HP PRN (Reason: Moderate To Severe Pain (4-10)) Qty: 10 0RF diltiazem HCl [Cardizem CD] 180 mg capsule,extended release 24hr 180 mg PO DAILY Qty: 90 0RF Continued Azo Cranberry 250 mg tablet,chewable 250 mg PO TID Qty: 90 0RF estradiol 0.01 % (0.1 mg/gram) cream 1 appful vaginal MOWEFR Rx Instructions: 1 appful vaginally saturday, saturday, saturday; flaxseed oil 1,000 mg capsule 1,000 mg PO DAILY Rx Instructions: administer with a meal fluticasone propionate [Flonase Allergy Relief] 50 mcg/actuation spray,suspension 2 spray intranasal DAILY Qty: 16 2RF apixaban 2.5 mg tablet 2.5 mg PO BID 90 Days Qty: 180 1RF Discontinued diltiazem HCl 60 mg capsule,extended release 12 hr 60 mg PO BID Problem Reconciliation Problems Reviewed?: Yes Patient Discharge Instructions ACTIVITY: Continue current activity DIET: continue same diet Patient Instructions: DI for Hip Fracture, How to Prevent Falls, DI for Surgical Site Infection, Catheter-Associated Urinary Tract Infection Print Language: Czech Providers Primary Care Provider: Bettie Holloway Admit Provider: Remy Segal Attending Provider: Remy Segal
--- NOTE | 2024-01-22 14:27 | PC.NURSE ---
AT 1400 PT STILL HAD NO URINE OUTPUT. PT BLADDER SCANNED WITH A RESULT OF GREATER THAN 400. NOTIFIED AND STATED TO PLACE ANOTHER TERRAZAS. UPON TERRAZAS PLACEMENT PT HAD 850 IN URINE OUT.
[2024-01-22] MEDS: dilTIAZem ER 180 MG CAPSULE PO (14:57)
--- NOTE | 2024-01-23 09:56 | EXP.ANES.II ---
[facility] Anesthesia Record Part II Anesthesia Record Part II Discharge Time: 12:07 Destination: Second Floor PACU nurse assessment reviewed?: Yes Patient Condition:: Good Anesthesia Complications:: None Swallowing reflex intact?: Yes Airway Patency: Patent Cyanosis?: No Blood Pressure: 132/60 SaO2: 95 Respiratory Rate: 18 Pulse Rate: 75 Temperature: 97.6 F Mental Status: Alert & Oriented Pain level:: 0 Nausea and/or vomitting:: None Intake, IV Amount: 0 Hydration: Adequate
[2024-01-23 09:57] VITALS: BP 132/60; PULSE 75; RESP 18; TEMP 36.4; O2SAT 95
== END 2024-01-22 16:07 | DRG 522 ==
LOC: ER 22:14 → 2ND 23:02
PROVIDERS: Nurse Practitioner Family; Orthopaedic Surgery; Physician Assistant; Admitting Provider Internal Medicine Adolescent Medicine; Emergency Provider Emergency Medicine; PCP Nurse Practitioner Family; Visit Provider Internal Medicine Adolescent Medicine
PROC: 0SRS0JZ Replacement of Left Hip Joint, Femoral Surface with Synthetic Substitute, Open Approach (ICD-10-PCS; principal; 2024-01-20 08:30)
DX: S72.012A Unspecified intracapsular fracture of left femur, initial encounter for closed fracture (principal); D68.2 Hereditary deficiency of other clotting factors; D68.51 Activated protein C resistance; I48.0 Paroxysmal atrial fibrillation; E87.6 Hypokalemia; I10 Essential (primary) hypertension; M81.0 Age-related osteoporosis without current pathological fracture; W19.XXXA Unspecified fall, initial encounter
CPT/HCPCS: 27236; 36415; 70450; 72125; 72170; 72192; 73502; 73552; 73562; 80053; 81001; 83735; 85007; 85025; 85027; 85610; 85730; 93005; 93306; 97163; 97166; 97530; 99285; C1776; J0131; J0690; J1644; J1650; J2250; J2270; J2405; J2550; J2704; J7030

== ENCOUNTER 2024-02-04 09:19 | Outpatient (CLI) | payer MEDICARE, SELFPAY ==
--- NOTE | 2024-02-04 09:24 | XR_ITS ---
FINAL REPORT CLINICAL HISTORY: Left hip pain hip replacement January COMPARISON: 01/20/2024 FINDINGS: Left hip Three views were obtained. There is no acute fracture or dislocation. There are postoperative changes from left hip arthroplasty. No soft tissue abnormality is identified. IMPRESSION: Postsurgical changes from left hip arthroplasty. Reviewed, Interpreted and Dictated by Moncho Winters III, MD Transcribed by Jazz Zamora Authenticated and [facility]
== END 2024-02-04 23:59 | disposition home or self-care (01) ==
LOC: RAD 09:21
PROVIDERS: PCP Nurse Practitioner Family; Visit Provider Orthopaedic Surgery
DX: M25.552 Pain in left hip (principal)
CPT/HCPCS: 73502

== ENCOUNTER 2024-02-10 16:11 | Outpatient (CLI) | payer MEDICARE, SELFPAY | END 2024-02-10 23:59 | disposition home or self-care (01) | LOC: LAB.DROPOF 16:12 | PROVIDERS: PCP Urology; Visit Provider Urology | DX: R33.9 Retention of urine, unspecified (principal); N39.0 Urinary tract infection, site not specified; B96.1 Klebsiella pneumoniae [K. pneumoniae] as the cause of diseases classified elsewhere; B95.2 Enterococcus as the cause of diseases classified elsewhere | CPT/HCPCS: 87086; 87088; 87186 ==

== ENCOUNTER 2024-02-21 13:43 | Outpatient (CLI) | payer MEDICARE, SELFPAY ==
[2024-02-21 13:25] LABS: Basophils % 0.7 % (0.1-2.0); Eosinophils % 1.1 % (0.1-12.0); Hematocrit 36.5 % (37.0-47.0); Hemoglobin 11.3 g/dL (12.2-16.2); Lymphocytes # 1.4 K/mm3 (0.7-4.5); Lymphocytes % 32.6 % (10-50); Mean Platelet Volume 8.4 fl (7.4-10.4); Monocytes # 0.4 K/mm3 (0.1-1.0); Monocytes % 9.6 % (1.7-9.3); Neutrophils # 2.4 K/mm3 (1.8-7.8); Platelet Count 277 K/mm3 (142-424); Red Blood Count 3.65 M/mm3 (4.20-5.40); White Blood Count 4.2 K/mm3 (4.8-10.8)
[2024-02-21 13:44] LABS: Alanine Aminotransferase 10 U/L (12-78); Albumin Level 3.6 g/dl (3.5-5.0); Albumin/Globulin Ratio 1.4 (1.1-1.8); Alkaline Phosphatase 67 U/L (38-126); Anion Gap 9.6 mEq/L (5-15); Aspartate Amino Transferase 21 U/L (14-36); Bilirubin,Total 0.5 mg/dl (0.2-1.3); Blood Urea Nitrogen 14 mg/dl (7-17); Calcium 8.7 mg/dl (8.4-10.2); Carbon Dioxide 30 mmol/L (22.0-30.0); Chloride 101 mmol/L (98-107); Estimated Glomerular Filt Rate 80 ml/min (>60); GFR (African American) 96 ML/MIN (>60); Globulin 2.5 g/dL (1.3-3.2); Glucose 78 mg/dl (74-100); Magnesium 1.9 mg/dl (1.6-2.3); Potassium 3.6 mmoL/L (3.5-5.1); Sodium 137 mmol/L (136-145); Total Protein,Serum 6.1 g/dl (6.3-8.2)
[2024-02-21 14:14] LABS: Thyroid Stimulating Hormone 1.34 uIU/mL (0.465-4.68)
[2024-02-21 14:33] LABS: Vitamin B12 198 pg/mL (239-931)
== END 2024-02-21 23:59 | disposition home or self-care (01) ==
LOC: LAB.DROPOF 13:44
PROVIDERS: PCP Nurse Practitioner Family; Visit Provider Nurse Practitioner Family
DX: R53.1 Weakness (principal); E55.9 Vitamin D deficiency, unspecified
CPT/HCPCS: 80053; 82306; 82607; 83735; 84443; 85025

== ENCOUNTER 2024-02-25 14:07 | Outpatient (CLI) | payer MEDICARE, SELFPAY ==
[2024-02-25 11:47] LABS: Microscopic, Urine URINE MICROSCOPIC (MICROSCOPIC)
[2024-02-25 12:57] LABS: Appearance,Urine CLEAR (Clear); Bilirubin,Urine Negative (Negative); Blood, Urine Negative (Negative); Color,Urine YELLOW (Yellow); Glucose,Urine (UA) Negative (Negative); Ketones,Urine Negative (Negative); Leukocyte Esterase,Urine Negative (Negative); Nitrate,Urine Negative (Negative); Protein,Urine Negative (Negative); Specific Gravity, Urine <= 1.005 (1.005-1.030); Urobilinogen,Urine 0.2 EU/dl (0.2)
[2024-02-25 13:16] LABS: Squamous Epithelial Cell,Urine Occasional #/hpf (0-5)
== END 2024-02-25 23:59 | disposition home or self-care (01) ==
LOC: LAB.DROPOF 14:09
PROVIDERS: PCP Nurse Practitioner Family; Visit Provider Nurse Practitioner Family
DX: N39.43 Post-void dribbling (principal); R33.9 Retention of urine, unspecified
CPT/HCPCS: 81001; 87086

== ENCOUNTER 2024-03-19 10:16 | Outpatient (CLI) | payer MEDICARE, SELFPAY ==
--- NOTE | 2024-03-19 10:26 | XR_ITS ---
FINAL REPORT CLINICAL HISTORY: left hip fx COMPARISON: None FINDINGS: LEFT HIP: 3 views of the left hip demonstrate no acute fracture or dislocation. The patient has undergone a prior total hip replacement. The joint spaces appear normal. The visualized bony structures are well aligned. No soft tissue abnormality is seen. IMPRESSION: No acute bony abnormality. Reviewed, Interpreted and Dictated by Robert Christiansen MD Transcribed by Renea Jackson Authenticated and . [facility]
== END 2024-03-19 23:59 | disposition home or self-care (01) ==
LOC: RAD 10:17
PROVIDERS: PCP Nurse Practitioner Family; Visit Provider Orthopaedic Surgery
DX: M25.552 Pain in left hip (principal)
CPT/HCPCS: 73502

== ENCOUNTER 2024-08-13 11:40 | Outpatient (CLI) | payer MEDICARE, SELFPAY | END 2024-08-13 23:59 | disposition home or self-care (01) | LOC: RT 11:41 | PROVIDERS: PCP Nurse Practitioner Family; Visit Provider Internal Medicine | DX: R00.2 Palpitations (principal) | CPT/HCPCS: 93270 ==

== ENCOUNTER 2024-08-18 15:32 | Outpatient (CLI) | payer MEDICARE, SELFPAY ==
[2024-08-18 19:57] LABS: Basophils % 0.8 % (0.1-2.0); Eosinophils # 0.1 K/mm3 (0.0-0.4); Eosinophils % 1.7 % (0.1-12.0); Hematocrit 37.9 % (37.0-47.0); Hemoglobin 12.5 g/dL (12.2-16.2); Lymphocytes % 37.8 % (10-50); Mean Corpuscular Hemoglobin 30.3 pg (27.0-31.2); Mean Platelet Volume 11.5 fl (7.4-10.4); Monocytes # 0.5 K/mm3 (0.1-1.0); Monocytes % 9.3 % (1.7-9.3); Neutrophils # 2.6 K/mm3 (1.8-7.8); Neutrophils % 50.2 % (37.0-80.0); Platelet Count 213 K/mm3 (142-424); Red Blood Count 4.12 M/mm3 (4.20-5.40); White Blood Count 5.2 K/mm3 (4.8-10.8)
[2024-08-18 21:29] LABS: Alanine Aminotransferase 16 U/L (12-78); Albumin Level 4.6 g/dl (3.5-5.0); Albumin/Globulin Ratio 1.7 (1.1-1.8); Alkaline Phosphatase 62 U/L (38-126); Anion Gap 9.8 mEq/L (5-15); Aspartate Amino Transferase 27 U/L (14-36); Bilirubin,Total 0.8 mg/dl (0.2-1.3); Blood Urea Nitrogen 16 mg/dl (7-17); Calcium 9.2 mg/dl (8.4-10.2); Carbon Dioxide 28 mmol/L (22.0-30.0); Chloride 103 mmol/L (98-107); Chol/HDL Ratio 2.6 (1-3.5); Cholesterol 197 mg/dl (140-200); Estimated Glomerular Filt Rate 80 ml/min (>60); GFR (African American) 96 ML/MIN (>60); Globulin 2.7 g/dL (1.3-3.2); Glucose 85 mg/dl (74-100); HDL Cholesterol 76 mg/dl (40-60); Magnesium 2.2 mg/dl (1.6-2.3); Potassium 3.8 mmoL/L (3.5-5.1); Sodium 137 mmol/L (136-145); Total Protein,Serum 7.3 g/dl (6.3-8.2); Triglycerides 86 mg/dl (30-150); VLDL Cholesterol 17 mg/dL (0-40)
[2024-08-18 21:40] LABS: Direct LDL Cholesterol 79.43 mg/dL (100-129)
[2024-08-18 21:53] LABS: 25-OH Vitamin D, Total 96.3 ng/mL (30-100)
[2024-08-18 22:00] LABS: Thyroid Stimulating Hormone 1.07 uIU/mL (0.465-4.68)
[2024-08-18 23:46] LABS: Ferritin 117 ng/ml (11.1-264)
[2024-08-19 01:03] LABS: Vitamin B12 405 pg/mL (239-931)
== END 2024-08-18 23:59 | disposition home or self-care (01) ==
LOC: LAB.DROPOF 08-19 09:08
PROVIDERS: PCP Nurse Practitioner Family; Visit Provider Nurse Practitioner Family
DX: I48.0 Paroxysmal atrial fibrillation (principal); I10 Essential (primary) hypertension; R00.2 Palpitations; R42 Dizziness and giddiness; E55.9 Vitamin D deficiency, unspecified; Z68.24 Body mass index [BMI] 24.0-24.9, adult
CPT/HCPCS: 80053; 80061; 82306; 82607; 82728; 83735; 84443; 85025

== ENCOUNTER 2024-11-02 15:04 | Outpatient (CLI) | payer MEDICARE, SELFPAY ==
--- NOTE | 2024-11-02 15:00 | CT_ITS ---
FINAL REPORT TECHNIQUE: Thin section axial images were obtained from skull base to vertex without contrast. Coronal reconstruction images were obtained from the axial data. Exam was performed using dose reduction techniques such as automated exposure control, adjustment of the mA and kV according to patient size, and use of iterative reconstruction technique. CLINICAL HISTORY: dizziness, left sided [place] COMPARISON: 01/16/2024 FINDINGS: There is atrophy. No mass effect or midline shift. No intracranial hemorrhage. No hydrocephalus. Periventricular low density is likely related to changes of chronic small vessel ischemia. The basilar cisterns are preserved. The posterior fossa is without acute abnormality. The soft tissues are without acute abnormality. No acute osseous abnormality is identified. IMPRESSION: No acute intracranial abnormality. Atrophy and changes suggesting chronic small vessel ischemia. Reviewed, Interpreted and Dictated by Madelyn Keith MD Transcribed by Yecenia Hinojosa Authenticated and [facility]
[2024-11-02 17:07] LABS: Basophils % 0.6 % (0.1-2.0); Eosinophils # 0.1 Kmm3 (0.0-0.4); Eosinophils % 1.3 % (0.1-12.0); Hematocrit 36.6 % (37.0-47.0); Hemoglobin 11.9 g/dL (12.2-16.2); Immature Granulocytes # 0 10^3uL; Immature Granulocytes % 0 %; Lymphocytes # 1.4 K/mm3 (0.7-4.5); Lymphocytes % 29.8 % (10-50); Mean Corpuscular HGB Conc 32.5 g/dL (31.8-35.4); Mean Corpuscular Hemoglobin 30.4 pg (27.0-31.2); Mean Corpuscular Volume 93.4 fl (81-99); Mean Platelet Volume 11.4 fl (7.4-10.4); Monocytes # 0.4 K/mm3 (0.1-1.0); Monocytes % 9.2 % (1.7-9.3); Neutrophils # 2.8 K/mm3 (1.8-7.8); Neutrophils % 59.1 % (37.0-80.0); Nucleated Red Blood Cells # 0 10^3/uL; Nucleated Red Blood Cells % 0 %; Platelet Count 219 K/mm3 (142-424); Red Blood Count 3.92 M/mm3 (4.20-5.40); Red Cell Distribution Width 12.8 % (11.5-17.5); Red Cell Distribution Width-SD 43.8 fL; White Blood Count 4.8 K/mm3 (4.8-10.8)
[2024-11-02 18:06] LABS: Alanine Aminotransferase 9 U/L (12-78); Albumin Level 4.2 g/dl (3.5-5.0); Albumin/Globulin Ratio 1.6 (1.1-1.8); Alkaline Phosphatase 75 U/L (38-126); Anion Gap 11.1 mEq/L (5-15); Aspartate Amino Transferase 21 U/L (14-36); Bilirubin,Total 0.5 mg/dl (0.2-1.3); Blood Urea Nitrogen 14 mg/dl (7-17); Calcium 8.9 mg/dl (8.4-10.2); Carbon Dioxide 29 mmol/L (22.0-30.0); Chloride 103 mmol/L (98-107); Estimated Glomerular Filt Rate 95 ml/min (>60); GFR (African American) 115 ML/MIN (>60); Globulin 2.6 g/dL (1.3-3.2); Glucose 81 mg/dl (74-100); Potassium 4.1 mmoL/L (3.5-5.1); Sodium 139 mmol/L (136-145); Total Protein,Serum 6.8 g/dl (6.3-8.2)
== END 2024-11-02 23:59 | disposition home or self-care (01) ==
LOC: RAD 15:05
PROVIDERS: PCP Nurse Practitioner Family; Visit Provider Nurse Practitioner Family
DX: G31.9 Degenerative disease of nervous system, unspecified (principal); R42 Dizziness and giddiness; R51.9 Headache, unspecified
CPT/HCPCS: 70450; 80053; 85025

== ENCOUNTER 2024-11-10 10:40 | Outpatient (CLI) | payer MEDICARE, SELFPAY ==
[2024-11-10 10:43] LABS: Microscopic, Urine URINE MICROSCOPIC (MICROSCOPIC)
[2024-11-10 11:07] LABS: Appearance,Urine CLEAR (Clear); Bilirubin,Urine Negative (Negative); Blood, Urine Negative (Negative); Color,Urine YELLOW (Yellow); Glucose,Urine (UA) Negative (Negative); Ketones,Urine Negative (Negative); Leukocyte Esterase,Urine Negative (Negative); Nitrate,Urine Negative (Negative); PH,Urine 7.5 (5.0-8.5); Protein,Urine Negative (Negative); Specific Gravity, Urine 1.015 (1.005-1.030); Urobilinogen,Urine 0.2 EU/dl (0.2)
[2024-11-10 11:18] LABS: Bacteria,Urine Trace /lpf; WBC,Urine Occasional #/hpf (0-3)
== END 2024-11-10 23:59 | disposition home or self-care (01) ==
LOC: LAB 10:40
PROVIDERS: PCP Nurse Practitioner Family; Visit Provider Nurse Practitioner Family
DX: R10.9 Unspecified abdominal pain (principal); R11.0 Nausea; R42 Dizziness and giddiness
CPT/HCPCS: 81001; 87086

== ENCOUNTER 2025-05-24 11:30 | Outpatient (CLI) | payer MEDICARE, SELFPAY ==
[2025-05-24 15:26] LABS: Influenza A, PCR Not Detected (NotDetected); Influenza B, PCR Not Detected (NotDetected)
[2025-05-24 16:10] LABS: Coronavirus 19, PCR Detected (NotDetected)
--- OUTSIDE RECORDS SUMMARY | 2025-05-25 13:27 | XMS_ITS | Clinical Summary ---
Author Organization [facility] Address [address] [place] [address] Care Team Providers Care Equipment Application Specialist Name Role Phone Rahat Murcia MD Primary Care Provider + Allergies Active Allergy Reactions Criticality Noted Date Comments Nitrofuran Derivatives Other (See Comments) .. Diazepam 10/24/2016 Medications Simethicone (GAS-X PO) Take by mouth. Active Ibuprofen (ADVIL PO) Take by mouth. Active apixaban (ELIQUIS) 5 MG tablet tablet Take 2.5 mg by mouth Daily. Active Turmeric Curcumin 500 MG capsule Take 500 mg by mouth. Active famotidine (PEPCID) 10 MG tablet Take 10 mg by mouth At Night As Needed for Heartburn. Active hydroCHLOROthia zide (HYDRODIURIL) 12.5 MG tablet TAKE ONE TABLET BY MOUTH EVERY MORNING 30 tablet 2 01/03/2022 Active dilTIAZem CD (CARDIZEM CD) 240 MG 24 hr capsule Take 1 capsule by mouth Daily. 90 capsule 3 08/30/2022 Active Active Problems Problem Noted Date Diagnosed Date Paroxysmal atrial fibrillation 10/24/2016 Essential hypertension 10/24/2016 Family History Medical History Relation Name Comments Heart disease Brother Arrhythmia Mother Heart disease Sister Heart failure Sister Relation Name Status Comments Brother Mother Sister Social History Tobacco Use Types Packs/Day Years Used Date Smoking Tobacco: Never Smokeless Tobacco: Never Alcohol Use Standard Drinks/Week Comments No 0 (1 standard drink = 0.6 oz pur e alcohol) Abuse Screen Answer Date Recorded Unsafe at Home or Work/School Not on file Feels Threatened by Someone? Not on file 04/2023 Does Anyone Keep You from Co ntacting Others or Doint Things Outside the Home? Not on file 03/13/2023 Physical Sign of Abuse Present Not on file 1 Housing Stability Answer Date Recorded Current Living Arrangements Not on file 03/03 Potentially Unsafe Housing Conditions Not on darshan e 03/13/2023 Family and Community Support Answer Mayank e Recorded Help with Day-to-Day Activities Not on file 03/13/2023 Lonely or Isolated Not on file 03/13/2023 Employment Answer Date Recorded Do you want help finding or keeping work or a colleen b? Not on file 03/13/2023 Disabilities Answer Date Recorded Concentrating, Remembering, or Making Decisions Difficulty Not on file 03/13/2023 Doing Errands Independently Difficulty Not on fi le 03/13/2023 Education Answer Date Recorded Help with school or training? Not on file Preferred Language Not on file 03/13/2023 Comments Unknown Sex and Gender Information Value Date Recorded Sex Assigned at Not on file Legal Sex Female 10:47 AM EDT Gender Identity Not on file Sexual Orientation Not on file Last Filed Vital Signs Vital Sign Reading Time Taken Comments Blood Pressure 130/70 08/17/2020 9:21 AM EDT Pulse 69 08/17/2020 9:21 AM EDT Temperature - - Respiratory Rate - - Oxygen Saturation 96% 08/17/2020 9:21 AM EDT Inhaled Oxygen Concentration - - Weight 68 kg (150 lb) 08/17/2020 9:21 AM EDT Height 154.9 cm (5' 1 ) 08/17/2020 9:21 AM EDT Body Mass Index 28.34 08/17/2020 9:21 AM EDT Plan of Treatment Health Maintenance Due Date Last Done Comments DXA SCAN 1938 TDAP/TD VACCINES (1 - Tdap) 1957 Pneumococcal Vaccine 50+ (1 of 1 - PCV) 1988 ZOSTER VACCINE (1 of 2) 1988 RSV Vaccine - Adults (1 - 1- dose 75+ series) 2013 ANNUAL PHYSICAL 10/24/2016 INFLUENZA VACCINE 01/01/2025 COVID-19 Vaccine ( season) 02/01/202508/2020, 07/06/[address] [place] [address] [place] [id number] [employer] Care Teams Equipment Application Specialist Relationship Specialty Start Date End Date Rahat Murcia MD PCP - General Family Medicine 09/18/16
== END 2025-05-24 23:59 | disposition home or self-care (01) ==
LOC: LAB.DROPOF 05-25 13:22
PROVIDERS: PCP Nurse Practitioner Family; Visit Provider Student in an Organized Health Care Education/Training Program
DX: J06.9 Acute upper respiratory infection, unspecified (principal)
CPT/HCPCS: 87636

== ENCOUNTER 2025-06-02 15:19 | Outpatient (CLI) | payer MEDICARE, SELFPAY ==
--- OUTSIDE RECORDS SUMMARY | 2025-06-02 15:21 | XMS_ITS | Clinical Summary ---
Author Organization [facility] Address [address] [place] [address] Care Team Providers Care Round Kiln Drawer Name Role Phone Rahat Murcia MD Primary [...] season) 02/01/202508/2020, 07/06/[address] [place] [address] [place] [id number] [employer] Care Teams Round Kiln Drawer Relationship Specialty Start Date End Date Rahat Murcia MD PCP - General Family Medicine 09/18/16
[2025-06-02 15:32] LABS: Hematocrit 33.9 % (37.0-47.0); Hemoglobin 11.6 g/dL (12.2-16.2); Immature Granulocytes % 0 %; Mean Corpuscular HGB Conc 34.2 g/dL (31.8-35.4); Mean Corpuscular Hemoglobin 31.0 pg (27.0-31.2); Mean Corpuscular Volume 90.6 fl (81-99); Nucleated Red Blood Cells % 0 %; Platelet Count 201 K/mm3 (142-424); Red Blood Count 3.74 M/mm3 (4.20-5.40); Red Cell Distribution Width-SD 40.9 fL; White Blood Count 3.7 K/mm3 (4.8-10.8)
[2025-06-02 16:23] LABS: Alanine Aminotransferase 18 U/L (12-78); Albumin Level 4.1 g/dl (3.5-5.0); Albumin/Globulin Ratio 1.5 (1.1-1.8); Alkaline Phosphatase 74 U/L (38-126); Anion Gap 10.3 mEq/L (5-15); Aspartate Amino Transferase 31 U/L (14-36); Bilirubin,Total 0.7 mg/dl (0.2-1.3); Blood Urea Nitrogen 17 mg/dl (7-17); Calcium 8.5 mg/dl (8.4-10.2); Carbon Dioxide 29 mmol/L (22.0-30.0); Chloride 98 mmol/L (98-107); Creatinine,Serum 0.90 mg/dl (0.52-1.04); Estimated Glomerular Filt Rate 59 ml/min (>60); GFR (African American) 72 ML/MIN (>60); Globulin 2.8 g/dL (1.3-3.2); Glucose 87 mg/dl (74-100); Potassium 3.3 mmoL/L (3.5-5.1); Sodium 134 mmol/L (136-145); Total Protein,Serum 6.9 g/dl (6.3-8.2)
[2025-06-02 16:54] LABS: Thyroid Stimulating Hormone 0.84 uIU/mL (0.465-4.68)
[2025-06-02 18:55] LABS: 25-OH Vitamin D, Total 33.9 ng/mL (30-100)
== END 2025-06-02 23:59 | disposition home or self-care (01) ==
LOC: LAB.DROPOF 15:19
PROVIDERS: PCP Nurse Practitioner Family; Visit Provider Nurse Practitioner Family
DX: E55.9 Vitamin D deficiency, unspecified (principal); I10 Essential (primary) hypertension; I48.0 Paroxysmal atrial fibrillation
CPT/HCPCS: 80053; 82306; 84443; 85025